=== PATIENT | male | born 1970 | race Caucasian/White ===

== ENCOUNTER → 2020-07-04 02:17 | Outpatient (CLI) | payer OTHER, SELFPAY ==
[2020-07-04 19:28] LABS: SARS-CoV-2 RNA PCR Negative
== END ==
PROVIDERS: PCP Nurse Practitioner Family; Visit Provider Internal Medicine Gastroenterology
DX: Z01.812 Encounter for preprocedural laboratory examination (principal); Z20.822 Contact with and (suspected) exposure to COVID-19
CPT/HCPCS: C9803; U0003; U0005

== ENCOUNTER 2020-07-07 01:56 | Day surgery (SDC) | payer OTHER, SELFPAY ==
[2020-06-20 09:41] VITALS: BMI 31.3
[2020-07-07 10:16] VITALS: BP 148/108; PULSE 65; RESP 18; TEMP 36.1; O2SAT 97
[2020-07-07] MEDS: LACTATED RINGERS 1,000 ML 150 ML IV CONT (10:17)
--- NOTE | 2020-07-07 11:35 | WPDANESEPPF ---
Anes - Initial Pre Proc Eval Procedure: Operation Date: 07/07/20 11:30 Proposed Procedures p Screening Colonoscopy - Glen Stoll DO Date/Time: 07/07/20 11:35 Surgeon: Glen Stoll DO Pre Op Diagnosis: Neoplasm Screening Patient Data Age: 50 Gender: M Height: 6 ft 6 in Weight: 121.4 kg Last Vital Signs Temp 96.9 F L 07/07/20 10:16 Pulse 65 07/07/20 10:16 Resp 18 07/07/20 10:16 BP 148/108 H 07/07/20 10:16 Pulse Ox 97 07/07/20 10:16 Allergies Allergy/AdvReac Type Severity Reaction Status Date / Time No Known Allergies Allergy Mild Verified 07/07/20 10:14 Home Medications Medication Instructions Recorded Confirmed Type bupropion HCl 150 mg PO DAILY 06/20/20 06/20/20 History famotidine [Pepcid] 20 mg PO DAILY 06/20/20 06/20/20 History lactobacillus combination no.8 3,000 mmu cells PO DAILY 06/20/20 06/20/20 History [Adult Probiotic] pczegutixvvr-let-ttxv-FA-vit K 1 tablet PO DAILY 06/20/20 06/20/20 History [Adults Multivitamin] Patient hx anesthesia problems: none Family hx anesthesia problems: none PMFSH Past Medical History Medical History (Updated 07/07/20 @ 11:35 by Moshe Sharp MD) Anxiety Depression Social History Social History Smoking packs per day: 1.5 Smoking cigarettes per day: 30.0 Years smoked: 20 Smoking pack-years: 30.00 Smoking status: Former smoker Tobacco type: cigarettes Alcohol intake: current Drinks per week: 8 Substance use type: does not use Living arrangements: with family Spiritual care concerns: No Anes - Eval Final PreProcedure Day of Procedure 07/07/20 11:35 Patient weight: overweight Heart: regular rate and rhythm Lungs: clear to auscultation Airway: Mallampati scale class II Neurological: alert and oriented Last oral intake: >/= 8 hours ASA classification: II Emergent: no Anesthetic plan: proceed Anesthesia type and monitoring: general GIVS and standard monitoring Informed Consent: The patient's anesthetic plan and its attendant risks and benefits were discussed with the patient/family/POA. Questions were solicited and answers provided to the satisfaction of the patient/family/POA.
--- NOTE | 2020-07-07 12:35 | WPDGICN ---
GI Consult Note Consult date/time: 07/07/20 12:35 HPI: This very pleasant gentleman is here for colonoscopy. This very pleasant gentleman seen in consultation at request of the primary physician. Impression: Screening colonoscopy. Recommendation: Colonoscopy. History: This very pleasant gentleman is here for screening colonoscopy. GI review systems is negative. Physical examination: General: very pleasant patient in no acute distress. HEENT: Head was normocephalic sclerae is clear mouth without masses neck was supple. Heart: Rate rhythm regular without S3 or S4. Lungs: CTA. Abdomen: Soft with no guarding or rigidity. Bowel sounds were active. Neurologic: Cranial nerves 2 through 12 intact. No focal defects. No clonus. Musculoskeletal system: Revealed no joint tenderness or swelling no muscle atrophy. Extremities: Reveal no significant edema. Skin: Warm and dry with normal turgor. Mental status: intact. Patient is alert and oriented. Review of Systems Review of Systems: All systems reviewed & are unremarkable except as noted in HPI and below PMFSH Past Medical History Medical History (Updated 07/07/20 @ 11:35 by Moshe Sharp MD) Anxiety Depression Social History Social History Smoking packs per day: 1.5 Smoking cigarettes per day: 30.0 Years smoked: 20 Smoking pack-years: 30.00 Smoking status: Former smoker Tobacco type: cigarettes Alcohol intake: current Drinks per week: 8 Substance use type: does not use Living arrangements: with family Spiritual care concerns: No Meds Home Medications and Allergies Home Medications Medication Instructions Recorded Confirmed Type bupropion HCl 150 mg PO DAILY 06/20/20 06/20/20 History famotidine [Pepcid] 20 mg PO DAILY 06/20/20 06/20/20 History lactobacillus combination no.8 3,000 mmu cells PO DAILY 06/20/20 06/20/20 History [Adult Probiotic] vecwuhqfubrv-kwd-jdsn-FA-vit K 1 tablet PO DAILY 06/20/20 06/20/20 History [Adults Multivitamin] Allergies Allergy/AdvReac Type Severity Reaction Status Date / Time No Known Allergies Allergy Mild Verified 07/07/20 10:14 Vital Signs Vital Signs - 24 hr 07/07/20 10:16 Temperature 36.1 C L Pulse Rate 65 Respiratory Rate 18 Blood Pressure 148/108 H Pulse Oximetry 97
[2020-07-07 13:00] VITALS: BP 113/73; PULSE 58; RESP 14; O2SAT 98
[2020-07-07 13:10] VITALS: BP 110/76; PULSE 55; RESP 14; O2SAT 98
[2020-07-07 13:20] VITALS: BP 127/90; PULSE 62; RESP 14; O2SAT 98
== END 2020-07-07 13:38 | disposition home or self-care (01) ==
PROVIDERS: PCP Nurse Practitioner Family; Visit Provider Internal Medicine Gastroenterology
PROC: 0DJD8ZZ Inspection of Lower Intestinal Tract, Via Natural or Artificial Opening Endoscopic (ICD-10-PCS; CPT 45378; principal; 2020-07-07 11:30)
DX: Z12.11 Encounter for screening for malignant neoplasm of colon (principal); F41.9 Anxiety disorder, unspecified; F32.9 Major depressive disorder, single episode, unspecified; Z87.891 Personal history of nicotine dependence; K57.30 Diverticulosis of large intestine without perforation or abscess without bleeding
CPT/HCPCS: 45378; C9803; J2704; J7120; U0003; U0005

== ENCOUNTER → 2020-10-02 12:25 | Outpatient (CLI) | payer OTHER, SELFPAY ==
--- NOTE | ~2020-10-02 | US_ITS ---
EXAMINATION:US venous doppler LE LT INDICATION:Left leg pain TECHNIQUE: Multiple grayscale, color flow and Doppler images of the left lower extremity deep venous systems were obtained and reviewed. COMPARISON:No prior studies for comparison. FINDINGS: The common femoral, superficial femoral and popliteal veins demonstrate normal respiratory variation, augmentation and compressibility. Color flow is also seen within the posterior tibial, pe roneal, greater saphenous and profunda veins. IMPRESSION: 1: No lower extremity deep venous thrombosis. Reviewed, dictated and finalized at location A.
== END ==
PROVIDERS: PCP Nurse Practitioner Family; Visit Provider Nurse Practitioner Family
DX: M62.838 Other muscle spasm (principal); M79.605 Pain in left leg; M25.562 Pain in left knee; Z78.9 Other specified health status
CPT/HCPCS: 93971

== ENCOUNTER 2024-06-19 14:56 | Outpatient (CLI) | payer OTHER, SELFPAY | END 2024-06-19 14:57 | disposition home or self-care (01) | LOC: ANHIMG 14:58 | PROVIDERS: PCP Nurse Practitioner Family; Visit Provider Plastic Surgery | DX: M18.11 Unilateral primary osteoarthritis of first carpometacarpal joint, right hand (principal); M18.12 Unilateral primary osteoarthritis of first carpometacarpal joint, left hand | CPT/HCPCS: 73130 ==

== ENCOUNTER 2024-09-02 18:49 | Emergency (ER) | payer OTHER, SELFPAY ==
--- NOTE | ~2024-09-02 | CT_ITS ---
History: Remote history of blunt trauma without loss of consciousness. PROCEDURE: CT head without contrast. COMPARISON: None TECHNIQUE: Axial imaging of the head performed from the skull base to the vertex without IV contrast. Sagittal a nd coronal reformations obtained. DLP: 681 mGy-cm FINDINGS: The ventricles are normal in size, shape and position. There is no mass, mass effect or midline shift. There is no abnormal extra-axial fluid collection. Punctate calcifications along the falx. 3 mm focus of hyperattenuation adjacent to the frontal horn of the right lateral ventricle, likely re presenting a calcification for which short-term follow-up is recommended (within 1 to 2 hours). Visua lized paranasal sinuses are clear. The mastoid air cells are well aerated. No acute displaced fractures within the overlying cranium. Impression: 3 mm focus of hyperattenuation adjacent to the frontal horn of the right lateral ventricle, likely re presenting a punctate calcification (with hemorrhage less likely) for which short-term follow-up is r ecommended (within 1 to 2 hours). Reviewed, dictated and finalized at location A. Impression: 3 mm focus of hyperattenuation adjacent to the frontal horn of the right latera l ventricle, likely representing a punctate calcification (with hemorrhage less likely) for which short-term follow-up is recommended (within 1 to 2 hours).
--- NOTE | ~2024-09-02 | CT_ITS ---
History: Abnormal imaging PROCEDURE: CT head without contrast. COMPARISON: 09/02/2024, approximately 1 hour earlier. TECHNIQUE: Axial imaging of the head performed from the skull base to the vertex without IV contrast. Sagittal a nd coronal reformations obtained. DLP: 681 mGy-cm FINDINGS: The ventricles are normal in size, shape and position. There is no mass, mass effect or midline shift. There is no abnormal extra-axial fluid collection or intracranial hemorrhage. The 3 mm focus of increased attenuation is no longer visualized on the current study, possibly artifa ctual in origin. Visualized paranasal sinuses are clear. The mastoid air cells are well aerated. No acute displaced fractures within the overlying cranium. Impression: No acute intracranial hemorrhage or suspicious mass effect. Reviewed, dictated and finalized at location A. Impression: No acute intracranial hemorrhage or suspicious mass effect.
--- OUTSIDE RECORDS SUMMARY | 2024-09-02 18:52 | XMS_ITS | Encounter Summary ---
Author Organization [facility] Address [facility] [place] [address] Care Team Providers Care Pellet Preparation Operator Name Role Phone Sherri Fisher JYOTSNA Primary Care Provider [phone] Encounter Details Date Type Department Care Team (Late st Contact Info) Description 08/09/2023 OpenCurriculum Message Enc [facility] Medical Group Orthopedic & Sports Medicine - [place] [address] [place] [address] Branden Salgado MD [address] [place] [address] Appointment for joint replacement Social History Tobacco Use Types Packs/Day Years Used Date Smoking Tobacco: Former Cigarettes 1.5 22 1 984 - 04/18/2005 Passive Smoke Exposure: Past Smokeless Tobacco: Never Comments:no longer smoker//v apes, Provider to [place] Alcohol Use Standard Drinks/Week Comments Yes 6.7 (1 standard drink = 0.6 oz p ure alcohol) 2 x week AUDIT-C Answer Date Recorded Frequency of Alcohol Consumption Not on file 06/02/2020 Q2: How many drinks containi ng alcohol do you have on a typical day when you are drinking? 1 or 2 06/02/2020 Frequency of Binge Drinking Not on file 05/19 PHQ-2 Answer Date Recorded Patient Health Questionnaire-2 Score 1 07/12/2023 Sex and Gender Information Value Date Recorded Sex Assigned at Male 06/06/2024 2:33 PM HYDRATION PLANT OPERATOR Legal Sex Male 4:17 PM CDT Gender Identity Male 06/01/2021 4:37 AM HYDRATION PLANT OPERATOR Sexual Orientation Straight 06/01/2021 4: 37 AM HYDRATION PLANT OPERATOR documented as of this encounter Progress Notes * Parvin Munoz RN - 08/09/2023 2:51 PM CDT Kerwin, I definitely have that date open. I will pencil you in for 10/13/23 and give you a call later this week to get your preop and pretesting appts scheduled. Parvin documented in this encounter Plan of Treatment Upcoming Encounters Date Type Department Care Team (Late st Contact Info) Description 09/21/2024 9:00 AM CDT Office Visit [facility] Medical Group Orthopedic & Sports Medicine - [place] [address] [place] [address] Raul Torres MD [address] [place] [address] documented as of this encounter Visit Diagnoses Not on filedocumented in this encounter Additional Health Concerns Assessment Noted Time PHQ-9 Depression Total Score: 5 07/12/19 24 12:13 PM CDT documented as of this encounter Care Teams Pellet Preparation Operator Relationship Specialty Start Date End Date Sherri Fisher FNP [address] [place] [id number] PCP - General Nurse Practitioner Family 12/20/18 documented as of this encounter
--- OUTSIDE RECORDS SUMMARY | 2024-09-02 18:52 | XMS_ITS | Encounter Summary ---
Author Organization [facility] Address [facility] [place] [address] Care Team Providers Care Transportation Dispatch Manager Name Role Phone Sherri Fisher JYOTSNA Primary Care Provider [phone] Encounter Details Date Type Department Care Team (Late st Contact Info) Description 08/27/2024 nubelo Message Enc [facility] Medical Group Orthopedic & Sports Medicine - [place] [address] [place], [place] [phone] Branden Salgado MD [address] [place] [address] Upcoming hand Surgery Social History Tobacco Use Types Packs/Day Years Used Date Smoking Tobacco: Former Cigarettes 1.5 22 1 984 - 04/18/2005 Passive Smoke Exposure: Past Smokeless Tobacco: Never Comments:no longer smoker//v apes, Provider to [place] Alcohol Use Standard Drinks/Week Comments Yes 6.7 [...] Answer Date Recorded Patient Health Questionnaire-2 Score 0 07/13/2024 Sex and Gender Information Value Date Recorded Sex Assigned at Male 06/06/2024 2:33 PM CREDIT ADMINISTRATION SPECIALIST Legal Sex Male 4:17 PM CDT Gender Identity Male 06/01/2021 4:37 AM CREDIT ADMINISTRATION SPECIALIST Sexual Orientation Straight 06/01/2021 4: 37 AM CREDIT ADMINISTRATION SPECIALIST documented as of this encounter Functional Status * Are you deaf or do you have serious difficulty hearing Answer Date of Assessment Author Status No 10/13/2023 1:31 PM CDT Lilliam Donnelly RN Active * Are you blind or do you have serious difficulty seeing, even when wearing glasses? Answer Date of Assessment Author Status No 10/13/2023 1:31 PM SUNGT Lilliam Donnelly RN Active * Do you have serious difficulty walking or climbing stairs? Answer Date of Assessment Author Status Yes 10/13/2023 1:31 PM SUNGT Lilliam Donnelly RN Active * Do you have difficulty dressing or bathing? Answer Date of Assessment Author Status No 10/13/2023 1:31 PM CDT Lilliam Donnelly RN Active * Because of a physical, mental, or emotional condition, do you have difficulty doing errands alone such as visiting a doctor's office or shopping? Answer Date of Assessment Author Status No 10/13/2023 1:31 PM CDT Lilliam Donnelly RN Active documented as of this encounter Mental Status * Because of a physical, mental, or emotional condition, do you have serious difficulty concentrating, remembering, or making decisions? Answer Entry Date Author Status No 10/13/2023 1:31 PM SUNGT Lilliam Donnelly RN Active documented in this encounter Plan of Treatment Upcoming Encounters Date Type Department Care Team (Late st Contact Info) Description 09/21/2024 9:00 AM CDT Office Visit [facility] Medical Group Orthopedic & Sports Medicine - [place] [address] [place] [address] Raul Torres MD [address] [place] [address] documented as of this encounter Goals Goal Patient Goal Type Associated Problems Recent Progress Patient-Stated? Author Family - family caregiver with be involved in care transitions and discharge planning Lifestyle No Wiley Spann RN documented as of this encounter Visit Diagnoses Not on filedocumented in this encounter Additional Health Concerns Assessment Noted Time PHQ-9 Depression Total Score: 5 07/12/19 24 12:13 PM CDT documented as of this encounter Care Teams Transportation Dispatch Manager Relationship Specialty Start Date End Date Sherri Fisher FNP [address] [place] [id number] PCP - General Nurse Practitioner Family 12/20/18 documented as of this encounter
--- OUTSIDE RECORDS SUMMARY | 2024-09-02 18:52 | XMS_ITS | Encounter Summary ---
Author Organization [facility] Address [facility] [place] [address] Care Team Providers Care Keeler Polygraph Operator Name Role Phone Sherri Fisher Primary Care Provider [phone] Encounter Details Date Type Department Care Team (Late st Contact Info) Description 06/09/2022 Giant Swarmt Message Enc [facility] Medical Group Family & Internal Medicine [facility] [address] [place] [address] Sherri Fisher FNP [address] [place], [place] [phone] Arthritis meds Social History Tobacco Use Types Packs/Day Years Used Date Smoking Tobacco: Former Cigarettes 1.5 22 1 984 - 04/18/2005 Smokeless Tobacco: Never Comments:no longer smoker Alcohol Use Standard Drinks/Week Comments Yes 6.7 [...] on file 05/19 PHQ-2 Answer Date Recorded PHQ-2 Score - If the patient scores above 3, please move on to questions 3-9 0 12/18/2021 Sex and Gender Information Value Date Recorded Sex Assigned at Male 06/06/2024 2:33 PM CLINICAL DERMATOLOGIST Legal Sex Male 4:17 PM CDT Gender Identity Male 06/01/2021 4:37 AM CLINICAL DERMATOLOGIST Sexual Orientation Straight 06/01/2021 4: 37 AM CLINICAL DERMATOLOGIST documented as of this encounter Plan of Treatment Upcoming Encounters Date Type Department Care Team (Late st Contact Info) Description 09/21/2024 9:00 AM CDT Office Visit [facility] Medical Group Orthopedic & Sports Medicine - [place] [address] [place] [address] Raul Torres MD [address] [place] [address] documented as of this encounter Visit Diagnoses Not on filedocumented in this encounter Additional Health Concerns Infection Onset Date Last Indicated Resolved Time COVID-19 Rule Out 04/20/2023 04/20/2023 04/20/2023 2:48 PM CLINICAL DERMATOLOGIST Influenza - Seasonal 04/20/2023 04/20/2023 024 12:32 AM CLINICAL DERMATOLOGIST Assessment Noted Time PHQ-9 Depression Total Score: 2 10/03/19 21 11:46 AM CDT documented as of this encounter Care Teams Keeler Polygraph Operator Relationship Specialty Start Date End Date Sherri Fisher FNP [address] [place] [address] PCP - General Nurse Practitioner Family 12/20/18 documented as of this encounter
--- OUTSIDE RECORDS SUMMARY | 2024-09-02 18:52 | XMS_ITS | Encounter Summary ---
Author Organization [facility] Address [address] [place] [address] Care Team Providers Care Counter Person Name Role Phone Unavailable Primary Care Provider Unavailabl e Encounter Details Date Type Department Care Team (Late st Contact Info) Description 10/14/2003 Outpatient Historical [facility] Medicine [address] [place] [address] [place] Social History Tobacco Use Types Packs/Day Years Used Date Smoking Tobacco: Never Assessed Sex and Gender Information Value Date Recorded Sex Assigned at Not on file Legal Sex Male 4:54 AM SENIOR FUND ACCOUNTANT Gender Identity Not on file Sexual Orientation Not on file documented as of this encounter Plan of Treatment Not on file documented as of this encounter Visit Diagnoses Not on filedocumented in this encounter
--- OUTSIDE RECORDS SUMMARY | 2024-09-02 18:52 | XMS_ITS | Encounter Summary ---
Author Organization [facility] Address [address] [place] [address] Care Team Providers Care Director Heart Name Role Phone Unavailable Primary Care Provider Unavailabl e Encounter Details Date Type Department Care Team (Late st Contact Info) Description 01/29/2004 Outpatient Historical [facility] Medicine [address] [place] [phone] Larry Patel, DO [address] [facility] [place] [phone] Social History Tobacco Use Types Packs/Day Years Used Date Smoking Tobacco: Never Assessed Sex and Gender Information Value Date Recorded Sex Assigned at Not on file Legal Sex Male 4:54 AM PROPERTY MAINTENANCE SUPERVISOR Gender Identity Not on file Sexual Orientation Not on file documented as of this encounter Plan of Treatment Not on file documented as of this encounter Visit Diagnoses Not on filedocumented in this encounter
--- OUTSIDE RECORDS SUMMARY | 2024-09-02 18:52 | XMS_ITS | Encounter Summary ---
Author Organization [facility] Address [facility] [place] [address] Care Team Providers Care Platform Software Engineer Name Role Phone Sherri Fisher JYOTSNA Primary Care Provider [phone] Encounter Details Date Type Department Care Team (Late st Contact Info) Description 07/09/2023 [employer] Message Enc [facility] Medical Group Orthopedic & Sports Medicine - [place] [address] [place] [address] Raul Torres MD [address] [place] [address] Left leg pain Social History Tobacco Use Types Packs/Day Years Used Date Smoking Tobacco: Former Cigarettes 1.5 22 1 984 - 04/18/2005 Passive Smoke Exposure: Past Smokeless Tobacco: Never Comments:no longer smoker Alcohol [...] Sex Assigned at Male 06/06/2024 2:33 PM SHAREMILKER Legal Sex Male 4:17 PM CDT Gender Identity Male 06/01/2021 4:37 AM SHAREMILKER Sexual Orientation Straight 06/01/2021 4: 37 AM SHAREMILKER documented as of this encounter Functional Status * Over the past 2 weeks, how often have you been bothered by any of the following problems? Question Answer Date of Assessment Author Status Little interest or pleasure in doing things Several days 07/12/2023 12:13 PM CDT Sherri Fisher, MILK SAMPLER Acti ve Feeling down, depressed, or hopeless Not at all 07/12/2023 12:13 PM CDT Sherri Fisher, F SHAFT HEADMAN Active Patient Health Questionnaire-2 Score 1 07/12/2023 12:13 PM CDT Sherri Fisher FN P Active * Question Answer Date of Assessment Author Status Trouble falling or staying asleep, or sleeping too much Several days 07/12/2023 12:13 PM CDT Sherri Fisher, MILK SAMPLER Active Feeling tired or having little energy Several days 07/12/2023 12:13 PM CDT Eliud Fisheranda, MILK SAMPLER Active Poor appetite or overeating Not at all 07/12/2023 12:13 PM CDT Sherri Fisher, MILK SAMPLER Active Feeling bad about yourself - or that you are a failure or have let yourself or your family down Several days 07/12/2023 12:13 PM CDT Eliud Fisheranda, MILK SAMPLER Active Trouble concentrating on things, such as reading the newspaper or watching television Several days 07/12/2023 12:13 PM CDT Eliud Fisheranda, MILK SAMPLER Active Moving or speaking so slowly that other people could have noticed? Or the opposite - being so fidgety or restless that you have been moving around a lot more than usual. Not at all 07/12/2023 12:13 PM CDT Sherri Fisher, MILK SAMPLER Active Thoughts that you would be better off or hurting yourself in some way Not at all 07/12/2023 12:13 PM CDT Sherri Fisher, MILK SAMPLER Active Patient Health Questionnaire-9 Score 5 07/12/2023 12:13 PM CDT Sherri Fisher, MILK SAMPLER Active * If you checked off any problems on this questionnaire so far, Question Answer Date of Assessment Author Status How difficult have these problems made it for you to do your work, take care of things at home, or get along with other people? Not difficult at all 07/12/2023 12:13 PM CDT Sherri Fisher FNP Active documented as of this encounter Plan of Treatment Upcoming Encounters Date Type Department Care Team (Late st Contact Info) Description 09/21/2024 9:00 AM CDT Office Visit [facility] Medical Group Orthopedic & Sports Medicine - [place] [address] [place] [address] Raul Torres MD [address] [place] [address] documented as of this encounter Visit Diagnoses Not on filedocumented in this encounter Additional Health Concerns Assessment Noted Time PHQ-9 Depression Total Score: 2 10/03/19 21 11:46 AM CDT documented as of this encounter Care Teams Platform Software Engineer Relationship Specialty Start Date End Date Sherri Fisher FNP [address] [place] [address] PCP - General Nurse Practitioner Family 12/20/18 documented as of this encounter
--- OUTSIDE RECORDS SUMMARY | 2024-09-02 18:53 | XMS_ITS | Clinical Summary ---
Author Organization [facility] Address [address] [facility] Attn: Epic Prelude ADT [place] [address] Care Team Providers Care Ornament Stapler Name Role Phone Unavailable Primary Care Provider Unavailabl e Social History Tobacco Use Types Packs/Day Years Used Date Smoking Tobacco: Never Assessed Sex and Gender Information Value Date Recorded Sex Assigned at Not on file Legal Sex Male 4:54 AM INCIDENT RESPONSE ENGINEER Gender Identity Not on file Sexual Orientation Not on file Plan of Treatment Health Maintenance Due Date Last Done Comments DTAP/TDAP/TD VACCINES (1 - Tdap) 1988 HEPATITIS B VACCINES (1 of 3 - 19+ 3-dose series) 12/1988 COLORECTAL SCREENING 2014 Colorectal Cancer Screening 2014 FIT-DNA Q 3 years 2014 FIT/FOBT Q 1 year 2014 Flex Sig/CT Colonography Q 5 years 2014 ZOSTER VACCINE (1 of 2) 2019 INFLUENZA VACCINE (#1) 2023
--- OUTSIDE RECORDS SUMMARY | 2024-09-02 18:53 | XMS_ITS | Encounter Summary ---
Author Organization [facility] Address [address] [place] [address] Care Team Providers Care Corporate Licensed Broker Name Role Phone Unavailable Primary Care Provider Unavailabl e Encounter Details Date Type Department Care Team (Late st Contact Info) Description 02/27/2004 Outpatient Historical [facility] Medicine [address] [place] [phone] Larry Patel, DO [address] [facility] [place] [phone] Social History Tobacco Use Types Packs/Day Years Used Date Smoking Tobacco: Never Assessed Sex and Gender Information Value Date Recorded Sex Assigned at Not on file Legal Sex Male 4:54 AM SCIENTIFIC PROCESS OPERATOR Gender Identity Not on file Sexual Orientation Not on file documented as of this encounter Plan of Treatment Not on file documented as of this encounter Visit Diagnoses Not on filedocumented in this encounter
--- OUTSIDE RECORDS SUMMARY | 2024-09-02 18:53 | XMS_ITS | Clinical Summary ---
Author Organization [facility] Address [address] [place] [address] Care Team Providers Care Bond Runner Name Role Phone Sherri Fisher JYOTSNA Primary Care Provider [phone] Allergies No known active allergies Medications lansoprazole 15 MG capsuleIndications :Heartburn Take 1 capsule (15 mg total) by mouth nightly. Indications: Heartburn Active psyllium 51.7 % packetIndications: Constipation Take 1 packet by mouth 3 (three) times daily as needed (constipation). Indications: Constipation Active magnesium oxide (MAG-OX) 250 MG tabletIndications: Magnesium Deficiency Take 1 tablet (250 mg total) by mouth daily. Indications: Magnesium Deficiency Active baclofen (LIORESAL) 10 MG tabletIndications: Muscle Spasm Take 2 tablets (20 mg total) by mouth 2 (two) times daily. Indications: Muscle Spasm 270 tablet 01/31/20 24 Active buPROPion SR (WELLBUTRIN SR) 150 MG 12 hr tabletIndications: Depression Indications: Depression TAKE 1 TABLET TWICE A DAY 180 tablet 3 06/01/19 25 Active triamcinolone acetonide (NASACORT) 55 MCG/ACT nasal inhaler 06/05/19 25 Active losartan (COZAAR) 50 MG tablet TAKE 1 TABLET DAILY 90 tablet 06/14/19 25 Active diclofenac potassium (CATAFLAM) 50 MG tabletIndications: Arthralgia of both hands,Primary osteoarthritis of both knees Take 1 tablet (50 mg total) by mouth 3 (three) times daily. Short supply while waiting on mailorder 270 tablet 3 07/14/19 25 Active Active Problems Problem Noted Date Diagnosed Date Low testosterone 07/13/2024 Hyperglycemia 12/08/2023 Primary hypertension 12/08/2023 Right ventricular enlargement 12/08/2023 Snoring 12/08/2023 Status post total left knee replacement 10/13/19 Hemorrhoids, unspecified hemorrhoid type 023 Muscle cramp 07/26/2022 Urinary urgency 07/26/2022 Localized osteoarthritis of left knee 04/02/2022 Localized osteoarthritis of right knee Pain in both knees, unspecified chronicity 04/02 Family history of leukemia 11/16/2021 Elevated fasting glucose 11/16/2021 Chronic pain of right knee 11/16/2021 Chronic thumb pain, bilateral 03/30/2021 Dupuytren's contracture of right hand 03/30/2021 Pain in other joint 03/30/2021 Arthralgia of both hands 03/09/2021 Other fatigue 03/09/2021 Left leg pain 10/02/2020 Posterior left knee pain 10/02/2020 Family history of colon cancer 05/19/2020 Vitamin D deficiency, unspecified 05/19/2020 Primary osteoarthritis involving multiple joints 05/19/2020 Class 1 obesity due to exces s calories without serious comorbidity with body mass index (BMI) of 32.0 to 32.9 in adult 01/10/2019 Moderate episode of recurrent major depressive d isorder 01/10/2019 Resolved Problems Problem Noted Date Diagnosed Date Resolved Date Cellulitis of right lower extremity 12/29/2023 07/13/2024 Influenza A 04/20/2023 12/06/2023 COVID-19 virus infection 03/09/2021 Insomnia due to medical condition 03/09/2021 11/16/2021 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 11/16/2021 Muscle spasm 10/02/2020 07/26/2022 Recent travel on aircraft 10/02/2020 Need for diphtheria-tetanus- pertussis (Tdap) vaccine 10/02/2020 10/06/2020 Heart palpitations 05/19/2020 Pounding heartbeat 05/19/2020 Numbness and tingling in left arm 01/10/2019 06/25/2022 Encounter to establish care 01/10/2019 12/28/2019 Encounters Date Type Department Care Team Description 08/27/2024 MyChart Message Enc [facility] Orthopedic & Sports Medicine [facility] [address] [place] [address] Branden Salgado MD Upcoming hand Surgery 07/23/2024 Telephone [facility] Family & Internal [address] [address] Sherri Fisher FNP Lab Results 07/13/2024 7:20 AM CDT Office Visit [facility] Family Internal [address] [phone] Sherri Fisher FNP Annual (Patient here today for Annual HM- ) 07/13/2024 - 07/13/2024 11:59 PM CDT Hospital Encounter [facility] [address] [place] [address] Sherri Fisher FNP Discharge Disposition: Home or Self Care (Routine Discharge) 07/13/2024 Travel 07/12/2024 Orders Only [facility] Family Internal [address] [phone] Lilliam Muniz MA 06/19/2024 Scan HEALTH INFO SRVCS Scanned, [facility] Image (SCAN) 06/08/2024 Telephone [facility] Orthopedic & Sports Medicine [facility] [address] [place] [address] Branden Salgado MD Medication Reconciliation 06/07/2024 10:15 AM CRISIS SPECIALIST Office Visit [facility], [address] [address] Nguyen Goncalves MD Follow Up (6 month) 06/07/2024 Travel 06/06/2024 Scan MG HEALTH INFO SRVCS Scanned, [facility] 06/05/2024 Scan MG HEALTH INFO SRVCS Scanned, [facility] from Last 3 Months Immunizations Immunization Administration Dates Next Due Fluzone 6 Months+ Quad (0.5 mL Prefilled Syringe ) 03/30/2021,05/15/2020 Influenza Adult (Generic) 03/26/2022 Shingrix 06/26/2022,03/26/2022 Tdap (Adacel) 10/02/2020 Family History Medical History Relation Comments Cancer Father leukemia Hypertension Father Cancer Maternal Grandfather colon Diabetes Maternal Grandmother Stroke Maternal Grandmother Thyroid Disease Mother Cancer Paternal Grandfather leukemia Cancer Paternal Grandmother Cancer Paternal Uncle leukemia Relation Status Comments Father (Age 83) Maternal Grandfather Maternal Grandmother Mother Alive Paternal Grandfather Paternal Grandmother Paternal Uncle Social History Tobacco Use Types Packs/Day Years Used Date Smoking Tobacco: Former Cigarettes 1.5 22 1 984 - 04/18/2005 Passive Smoke Exposure: Past Smokeless Tobacco: Never Tobacco Cessation:Counseling Given: Yes Comments:no longer smoker//vapes, Provider to [place] Alcohol Use Standard Drinks/Week Comments Yes 6.7 [...] Sex Assigned at Male 06/06/2024 2:33 PM CRISIS SPECIALIST Legal Sex Male 4:17 PM CDT Gender Identity Male 06/01/2021 4:37 AM CRISIS SPECIALIST Sexual Orientation Straight 06/01/2021 4: 37 AM CRISIS SPECIALIST Last Filed Vital Signs Vital Sign Reading Time Taken Comments Blood Pressure 122/88 07/13/2024 7:29 AM CDT Pulse 65 07/13/2024 7:29 AM CDT Temperature 36.5 C (97.7 F) 07/13/2024 7:29 AM CDT Respiratory Rate 16 07/13/2024 7:29 AM CDT Oxygen Saturation 98% 07/13/2024 7:29 AM CDT Inhaled Oxygen Concentration - - Weight 117.7 kg (259 lb 8 oz) 07/13/2024 7:29 AM CDT Height 198.1 cm (6' 6 ) 07/13/2024 7:29 AM CDT Body Mass Index 29.99 07/13/2024 7:29 AM CDT Plan of Treatment Upcoming Encounters Date Type Department Care Team (Late st Contact Info) Description 09/21/2024 9:00 AM CDT Office Visit [facility] Orthopedic & Sports Medicine - [place] [address] [place] [address] Raul Torres MD [address] [place] [address] Health Maintenance Due Date Last Done Comments Hepatitis B Vaccines (1 of 3 - 19+ 3-dose series) 1988 Pneumococcal Vaccine: 50+ Years (1 of 1 - PCV) 2019 Annual Physical 07/13/2025 07/13/2024, 07/26/2022, 03/30/2021 COVID-19 Vaccine (3 - 2023-2 5 season) 2025 07/06/2020, 06/15/2020 Postponed from 12/18/2023 (Patient Refused) Colorectal Cancer Screening Colonoscopy (10 Years) 07/07/2030 07/07/2020 DTaP, Tdap and Td Vaccines ( 2 - Td or Tdap) 10/02/2030 10/02/2020 Hepatitis C Completed 03/30/2021 Zoster Vaccines Completed 06/26/2022, 03/26/2022 PHQ-2 (Physician Weir) Completed 07/13/2024 Meningococcal B Vaccine Aged Out No l onger eligible based on patient's age to complete this topic Meningococcal Vaccine Aged Out No hayes shyam eligible based on patient's age to complete this topic RSV Immunizations Under 20 Months Aged Out No longer eligible b ased on patient's age to complete this topic Goals Goal Patient Goal Type Associated Problems Recent Progress Patient-Stated? Author Family - family caregiver with be involved in care transitions and discharge planning Lifestyle No Wiley Spann, RN Medical Devices Implanted Type Area Manufacturing Scheduler Device Identifier Shelf Expiration Date Model / Serial / Lot Attune Tibial Base Affixium Fixed Bearing Implanted:Qty : 1 on 10/13/2023 by Branden Salgado MD at [facility] Knee Components Left: Knee DEPUY SYNTHES [id number] 09/15/2032 1506-21- 010 / / [id number] Attune Femoral Porocoat Cruciate Retaining Implanted:Qty : 1 on 10/13/2023 by Branden Salgado MD at [facility] Knee Components Left: Knee DEPU[employer] SYNTHES [id number] 08/15/2032 1504-01- 109 / / [id number] Attune Tibial Insert Fixed Bearing Medial Stabilized Implanted:Qty : 1 on 10/13/2023 by Branden Salgado MD at [facility] Knee Components Left: Knee DEPUY SYNTHES [id number] 08/15/2030 1518-20- 910 / / [id number] Procedures Procedure Name Priority Date/Time Associated Diagnosis Comments CBC W/DIFF AUTOMATED Routine 07/13/2024 9:12 AM CDT Primary hypertension Overweight with body mass index (BMI) of 29 to 29.9 in adult LIPID PANEL Routine 07/13/2024 9:12 AM CDT Primary hypertension Overweight with body mass index (BMI) of 29 to 29.9 in adult TSH W/REFLEX Routine 07/13/2024 9:12 AM CDT Primary hypertension PROSTATE SPECIFIC ANTIGEN,SCREENING Routine 07/13/2024 9:12 AM CDT Encounter for prostate cancer screening VITAMIN D, 25 OH Routine 07/13/2024 9:12 AM CDT Vitamin D deficiency, unspecified URIC ACID BLOOD Routine 07/13/2024 9:12 AM CDT Primary hypertension Overweight with body mass index (BMI) of 29 to 29.9 in adult COMPREHENSIVE METABOLIC PANEL Routine 07/13/2024 9:12 AM CDT Primary hypertension Overweight with body mass index (BMI) of 29 to 29.9 in adult URINALYSIS, AUTO, COMPLETE Routine 07/13/2024 9:12 AM CDT Primary hypertension Overweight with body mass index (BMI) of 29 to 29.9 in adult VITAMIN B-12 Routine 07/13/2024 9:12 AM CDT Arthralgia of both hands Primary hypertension FOLIC ACID SERUM Routine 07/13/2024 9:12 AM CDT Arthralgia of both hands Primary hypertension MAGNESIUM Routine 07/13/2024 9:12 AM CDT Arthralgia of both hands Primary hypertension PROLACTIN Routine 07/13/2024 9:12 AM CDT Low testosterone HEMOGLOBIN, GLYCOSYLATED Routine 07/13/2024 9:12 AM CDT Hyperglycemia TESTOSTERONE, FREE & TOTAL Routine 07/13/2024 8:21 AM CDT Low testosterone COLLECTION VENOUS BLOOD VENIPUNCTURE Routine 07/13/2024 7:58 AM CDT Arthralgia of both hands Vitamin D deficiency, unspecified Primary hypertension Overweight with body mass index (BMI) of 29 to 29.9 in adult Encounter for prostate cancer screening Low testosterone IMAGE GENERIC 06/19/2024 IMAGE GENERIC 06/19/2024 HEPATITIS C ANTIBODY Routine 03/30/2021 12:03 PM CRISIS SPECIALIST Need for hepatitis C screening test COLONOSCOPY GENERIC (SCAN ORDER) 07/07/2020 from Last 3 Months or Most Recently Relevant to Health Maintenance Results * TSH W/REFLEX (07/13/2024 9:12 AM CDT) TSH 3.033 0.358 - 3.740 uIU/ML 07/13/2024 3:25 PM CDT [facility] 07/13/2024 9:12 AM CDT Sherri Fisher [facility] Final Result Performing Organization Address City/[facility]/ZIP Co de Phone Number [address]Y S[address] [place] [address] [place] [address], [place] [phone] * (ABNORMAL) HEMOGLOBIN, GLYCOSYLATED (07/13/2024 9:12 AM CDT) HGB A1C 5.7 4.5 - 6.2 % 07/13/2024 3:08 PM CDT [facility] ESTIMATED AVG GLUCOSE 117(H) 74 - 106 MG/DL 07/13/2024 3:08 PM CDT [facility] 07/13/2024 9:12 AM CDT Sherri Fisher [facility] Final Result Performing Organization Address [facility] de Phone Number JERRY SANCHE[address] [place] [address] [place] [address], [place] [phone] * (ABNORMAL) URINALYSIS (07/13/2024 9:12 AM CDT) COLOR (U) YELLOW 07/13/2024 3:47 PM CDT [facility] TRANSPARENCY CLEAR CLEAR 07/13/2024 3:47 PM CDT [facility] SPECIFIC GRAVITY (U) 1.020 1.003 - 1.040 07/13/2024 3:47 PM CDT [facility] U PH 6.0 5.0 - 9.0 07/13/2024 3:47 PM CDT [facility] PROTEIN RANDOM (U) NEGATIVE NEGATIVE 07/13/2024 3:47 PM CDT [facility] GLUCOSE (U) NEGATIVE NEGATIVE 07/13/2024 3:47 PM CDT [facility] KETONES MG/DL (U) NEGATIVE NEGATIVE 07/13/2024 3:47 PM CDT [facility] BILIRUBIN (U) NEGATIVE NEGATIVE 07/13/2024 3:47 PM CDT [facility] BLOOD (U) NEGATIVE NEGATIVE 07/13/2024 3:47 PM CDT [facility] UROBILINOGEN 0.2 0.0 - 2.0 EU/DL 07/13/2024 3:47 PM CDT [facility] NITRITES NEGATIVE NEGATIVE 07/13/2024 3:47 PM CDT [facility] LEUKOCYTES (U) NEGATIVE NEGATIVE 07/13/2024 3:47 PM CDT [facility] RBC/HPF 0-3 0 - 3 /HPF 07/13/2024 3:47 PM CDT [facility] WBC/HPF 0-3 0 - 3 /HPF 07/13/2024 3:47 PM CDT [facility] EPI/HPF 0-3 /HPF 07/13/2024 3:47 PM CDT [facility] BACTERIA (U) TRACE(A) NONE SEEN 07/13/2024 3:47 PM CDT [facility] HYALINE CASTS 0-2 /LPF 07/13/2024 3:47 PM CDT [facility] MUCUS MODERATE 07/13/2024 3:47 PM CDT [facility] URINE SPECIMEN OBTAINED BY CLEAN CATCH PROCEDURE / Unknown 07/13/2024 9:12 AM CDT us Sherri Fisher QUALITY ASSURANCE AUDITOR URINE ORDERABLES Final Result [facility] [address] [place] [address], [place] [phone] * VITAMIN B-12 (07/13/2024 9:12 AM CDT) VITAMIN B12 S/P/B 541 193 - 986 PG/ML 07/13/2024 3:25 PM CDT [facility] 07/13/2024 9:12 AM CDT Sherri Fisher [facility] Final Result Performing Organization Address [facility] Co de Phone Number [facility] [address] [place] [address], [place] [phone] * PROSTATE SPECIFIC ANTIGEN,SCREENING (07/13/2024 9:12 AM CDT) PSA 1.24 <4.00 NG/ML 07/13/2024 3:10 PM CDT [facility] Comment: ASSAY PERFORMED BY ENZYME IMMUNOASSAY METHODOLOGY USING [employer] REAGENT. PATIENT RESULTS DETERMINED BY ASSAYS FROM DIFFERENT MANUFACTURERS AND/OR BY DIFFERENT METHODS MAY NOT BE COMPARABLE. 07/13/2024 9:12 AM CDT [facility] Final Result Performing Organization Address [facility] Co de Phone Number [place] [id number] [place] [address], [place] [phone] * (ABNORMAL) COMPREHENSIVE METABOLIC PANEL (07/13/2024 9:12 AM CDT) SODIUM S/P/B 139 136 - 145 MMOL/L 07/13/2024 3:25 PM CDT [facility] POTASSIUM S/P/B 4.7 3.5 - 5.1 MMOL/L 07/13/2024 3:25 PM CDT [facility] CHLORIDE S/P/B 105 98 - 107 MMOL/L 07/13/2024 3:25 PM CDT [facility] CO2 30.3 21 - 32 MMOL/L 07/13/2024 3:25 PM CDT [facility] GLUCOSE 107(H) 70 - 99 MG/DL 07/13/2024 3:25 PM CDT [facility] BUN 14 7 - 18 MG/DL 07/13/2024 3:25 PM T [facility] CREATININE S/P/B 1.01 0.70 - 1.30 MG/DL 07/13/2024 3:25 PM T [facility] CALCIUM S/P/B 9.0 8.4 - 10.5 MG/DL 07/13/2024 3:25 PM CDT [facility] BIL[facility] TOTAL S/P/B 0.7 0.2 - 1.0 MG/DL 07/13/2024 3:25 PM T [facility] ALKALINE PHOSPHATASE S/P/B 56 45 - 115 U/L 07/13/2024 3:25 PM T [facility] AST 13(L) 15 - 37 U/L 07/13/2024 3:25 PM T [facility] ALT 31 16 - 63 U/L 07/13/2024 3:25 PM T [facility] TOTAL PROTEIN S/P/B 6.9 6.4 - 8.2 G/DL 07/13/2024 3:25 PM T [facility] ALBUMIN S/P/B 4.2 3.4 - 5.0 G/DL 07/13/2024 3:25 PM T [facility] ANION GAP 3.7(L) 5 - 15 MMOL/L 07/13/2024 3:25 PM T [facility] Comment:REFERENCE RANGE NOT ESTABLISHED OSMOLALITY (CALC) 289 MOSM/KG 025 3:25 PM T [facility] Comment:REFERENCE RANGE NOT ESTABLISHED GFR ESTIMATE 88(L) >90 ML/MIN/1. 73 M2 07/13/2024 3:25 PM T [facility] GFR NOTES GFR REFERENCE S: 07/13/2024 3:25 PM T [facility] Comment: THE ESTIMATED GFR IS CALCULATED USING THE 2020 CKD-EPI EQUATION. THE FOLLOWING CATEGORIES FOR GRADING RENAL FUNCTION ARE RECOMMENDED BY THE INTERNATIONAL SOCIETY OF NEPHROLOGY (KDIGO 2012 CLINICAL PRACTICE GUIDELINE). G1,NORMAL OR HIGH: >89 ml/min/1.73 m2 G2,MILDLY DECREASED: 60-89 ml/min/1.73 m2 G3A,MILDLY TO MODERATELY DECREASED: 45-59 ml/min/1.73 m2 G3B,MODERATELY TO SEVERELY DECREASED: 30-44 ml/min/1.73 m2 G4,SEVERELY DECREASED: 15-29 ml/min/1.73 m2 G5,KIDNEY FAILURE: <15 ml/min/1.73 m2 07/13/2024 9:12 AM CDT Sherri Natalia [facility] Final Result [facility] [address] [place] [address], * LIPID PANEL (07/13/2024 9:12 AM CDT) CHOLESTEROL 178 <200 MG/DL 07/13/2024 3:25 PM CDT [facility] TRIGLYCERIDES 136 <150 MG/DL 07/13/2024 3:25 PM CDT [facility] HDL 62 >40 MG/DL 07/13/2024 3:25 PM CDT [facility] LDL-C 89 <100 MG/DL 07/13/2024 3:25 PM CDT [facility] VLDL CALCULATION 27 5 - 28 MG/DL 07/13/2024 3:25 PM CDT [facility] CHOL/HDL RATIO 2.9 0.0 - 4.0 07/13/2024 3:25 PM CDT [facility] LDL/HDL 1.4 0.41 - 2.13 07/13/2024 3:25 PM CDT [facility] NON HDL CHOLESTEROL 116 <140 MG/DL 07/13/2024 3:25 PM CDT [facility] 07/13/2024 9:12 AM CDT Sherri Fisher [facility] Final Result Performing Organization Address City/[facility]/ZIP Co de Phone Number [facility] [address] [place] [address], * FOLIC ACID SERUM (07/13/2024 9:12 AM CDT) FOLATE 16.7 8.6 - 58.9 NG/ML 07/13/2024 4:01 PM CDT [facility] 07/13/2024 9:12 AM CDT Sherri Almodovargertrude [facility] Final Result Performing Organization Address City/[facility] Co de Phone Number [facility] [address] [place] [address], [place] [phone] * CBC W/DIFF AUTOMATED (07/13/2024 9:12 AM CDT) WBC 5.31 4.00 - 10.80 x10'3/uL 07/13/2024 3:00 PM CDT [facility] RBC 5.13 4.50 - 6.10 x10'6/uL 07/13/2024 3:00 PM CDT [facility] HGB 15.9 13.0 - 18.0 G/DL 07/13/2024 3:00 PM CDT [facility] HCT 47.8 37.0 - 52.0 % 07/13/2024 3:00 PM CDT [facility] MCV 93.2 78.0 - 100.0 FL 07/13/2024 3:00 PM CDT [facility] MCH 31.0 27.0 - 31.0 PG 07/13/2024 3:00 PM CDT -[facility] MCHC 33.3 33.0 - 36.0 G/DL 07/13/2024 3:00 PM CDT -[facility] RDW 12.9 11.5 - 14.5 % 07/13/2024 3:00 PM CDT [facility] PLT 290 150 - 350 x10'3/uL 07/13/2024 3:00 PM CDT [facility] MPV 9.0 7.4 - 10.4 FL 07/13/2024 3:00 PM CDT -[facility] DIFFERENTIAL TYPE AUTOMATED DIFFERENTIAL 07/13/2024 3:00 PM CDT -[facility] NEUTROPHILS % 51.1 % 07/13/2024 3:00 PM CDT -[facility] LYMPHOCYTES % 37.9 % 07/13/2024 3:00 PM CDT [facility] MONOCYTES % 8.1 % 07/13/2024 3:00 PM CDT [facility] EOSINOPHILS % 2.1 % 07/13/2024 3:00 PM CDT -[facility] BASOPHILS % 0.6 % 07/13/2024 3:00 PM CDT [facility] IMMATURE GRANS % 0.2 % 07/13/2024 3:00 PM CDT [facility] ABS. NEUTROPHILS 2.72 1.60 - 8.30 x10'3/uL 07/13/2024 3:00 PM CDT [facility] ABS. LYMPHOCYTES 2.01 0.80 - 4.70 x10'3/uL 07/13/2024 3:00 PM CDT [facility] ABS. MONOCYTES 0.43 0.00 - 1.50 x10'3/uL 07/13/2024 3:00 PM CDT [facility] ABS. EOSINOPHILS 0.11 0.00 - 0.40 x10'3/uL 07/13/2024 3:00 PM CDT [facility] ABS. BASOPHILS 0.03 0.00 - 0.20 x10'3/uL 07/13/2024 3:00 PM CDT [facility] ABS. IMMATURE GRANULOCYTES 0.01 0.00 - 0.03 x10'3/uL 07/13/2024 3:00 PM CDT [facility] 07/13/2024 9:12 AM CDT Sherri Fisher [facility] Final Result Performing Organization Address City/[facility]/ZIP Co de Phone Number [address] [address], [place] [phone] * VITAMIN D, 25 OH (07/13/2024 9:12 AM CDT) VITAMIN D 25 HYDROXY TOTAL S/P/B 31.1 30 - 100 NG/ML 07/13/2024 3:25 PM CDT [facility] Comment: DEFICIENT <20 INSUFFICIENT 20-30 SUFFICIENT 30-100 07/13/2024 9:12 AM CDT Sherri Fisher [facility] Final Result [address] [address], [place] [phone] * (ABNORMAL) MAGNESIUM (07/13/2024 9:12 AM CDT) MAGNESIUM 2.5(H) 1.8 - 2.4 MG/DL 07/13/2024 3:25 PM CDT [facility] 07/13/2024 9:12 AM CDT us Sherri Fisher [facility] Final Result [facility] [place] [address] [place] [address], * PROLACTIN (07/13/2024 9:12 AM CDT) PROLACTIN 6.3 2.5 - 17.4 NG/ML 07/13/2024 5:28 PM CDT [facility] Comment: ASSAY PERFORMED BY CHEMILUMINESCENCE METHODOLOGY USING [employer]. PATIENT RESULTS DETERMINED BY ASSAYS USING DIFFERENT MANUFACTURERS FOR METHODS MAY NOT BE COMPARABLE. 07/13/2024 9:12 AM CDT us [place] [id number]|2024-09-02 21:10:00|2024-09-02 21:10:00|XMS_ITS|BLAZEG DAMECCAON|External Medical Summaries|[id number]|" Encounter Summary Created on: September 02, 2024 Moshe Haq : 1970 Sex: Male Author Organization [facility] Address [address] [place] [address] Care Team Providers Care Bond Runner Name Role Phone Unavailable Primary Care Provider Unavailabl e Encounter Details Date Type Department Care Team (Late st Contact Info) Description 10/14/2003 Outpatient Historical [facility] Family Medicine [address] [place] [address] [place] Social History Tobacco Use Types Packs/Day Years Used Date Smoking Tobacco: Never Assessed Sex and Gender Information Value Date Recorded Sex Assigned at Not on file Legal Sex Male 4:54 AM CRISIS SPECIALIST Gender Identity Not on file Sexual Orientation Not on file documented as of this encounter Plan of Treatment Not on file documented as of this encounter Visit Diagnoses Not on filedocumented in this encounter "
--- OUTSIDE RECORDS SUMMARY | 2024-09-02 18:53 | XMS_ITS | Encounter Summary ---
Author Organization [facility] Address [address] [place] [address] Care Team Providers Care Accountant Auditor Name Role Phone Unavailable Primary Care Provider Unavailabl e Encounter Details Date Type Department Care Team (Late st Contact Info) Description 11/30/2004 Outpatient Historical [facility] Medicine [address] [place] [phone] Larry Patel, DO [address] [facility] [place] [facility] [place] [phone] Social History Tobacco Use Types Packs/Day Years Used Date Smoking Tobacco: Never Assessed Sex and Gender Information Value Date Recorded Sex Assigned at Not on file Legal Sex Male 4:54 AM BRANCH SALES MANAGER Gender Identity Not on file Sexual Orientation Not on file documented as of this encounter Plan of Treatment Not on file documented as of this encounter Visit Diagnoses Not on filedocumented in this encounter
--- OUTSIDE RECORDS SUMMARY | 2024-09-02 18:53 | XMS_ITS | Encounter Summary ---
Author Organization [facility] Address [address] [place] [address] Care Team Providers Care Sock Ironer Name Role Phone Unavailable Primary Care Provider Unavailabl e Encounter Details Date Type Department Care Team (Late st Contact Info) Description 04/02/2005 Outpatient Historical [facility] Medicine [address] [place] [id number] Larry Patel, DO [address] [facility] [place] [phone] Social History Tobacco Use Types Packs/Day Years Used Date Smoking Tobacco: Never Assessed Sex and Gender Information Value Date Recorded Sex Assigned at Not on file Legal Sex Male 4:54 AM LOSS PREVENTION MANAGER Gender Identity Not on file Sexual Orientation Not on file documented as of this encounter Plan of Treatment Not on file documented as of this encounter Visit Diagnoses Not on filedocumented in this encounter
--- OUTSIDE RECORDS SUMMARY | 2024-09-02 18:53 | XMS_ITS | Encounter Summary ---
Author Organization [facility] Address Formerly [facility] [place] [address] Care Team Providers Care Production Supervisor Name Role Phone Sherri Fisher JYOTSNA Primary Care Provider [phone] Encounter Details Date Type Department Care Team (Late st Contact Info) Description 09/19/2023 [email or web address] Message Enc [facility] Medical Group Orthopedic & Sports Medicine - [place] [address] [place] [address] Raul Torres MD [address] [place] [address] Appointment on Social History Tobacco Use Types Packs/Day Years Used Date Smoking Tobacco: Former Cigarettes 1.5 22 1 984 - 04/18/2005 Passive Smoke Exposure: Past Smokeless Tobacco: Never Comments:no longer smoker//v apdon, Provider to [facility] Alcohol Use Standard Drinks/Week Comments Yes 6.7 [...] Sex Assigned at Male 06/06/2024 2:33 PM MAMMAL KEEPER Legal Sex Male 4:17 PM CDT Gender Identity Male 06/01/2021 4:37 AM MAMMAL KEEPER Sexual Orientation Straight 06/01/2021 4: 37 AM MAMMAL KEEPER documented as of this encounter Plan of Treatment Upcoming Encounters Date Type Department Care Team (Late st Contact Info) Description 09/21/2024 9:00 AM CDT Office Visit [facility] Medical Group [facility] - [place] [address] [place] [address] Raul Torres MD [address] [place] [address] documented as of this encounter Visit Diagnoses Not on filedocumented in this encounter Additional Health Concerns Assessment Noted Time PHQ-9 Depression Total Score: 5 07/12/19 24 12:13 PM CDT documented as of this encounter Care Teams Production Supervisor Relationship Specialty Start Date End Date Sherri Fisher FNP [address] [place] [address] PCP - General Nurse Practitioner Family 12/20/18 documented as of this encounter
--- OUTSIDE RECORDS SUMMARY | 2024-09-02 18:53 | XMS_ITS | Encounter Summary ---
Author Organization [facility] Address [facility] [place] [address] Care Team Providers Care Rv Technician Name Role Phone Sherri Fisher JYOTSNA Primary Care Provider [phone] Encounter Details Date Type Department Care Team (Late st Contact Info) Description 11/21/2023 Loan[employer] Message Enc [facility] Medical Group Orthopedic & Sports Medicine - [place] [address] [place], [place] [phone] Branden Salgado MD [address] [place] [address] November 22 appt Social History Tobacco Use Types Packs/Day Years Used Date Smoking Tobacco: Former Cigarettes 1.5 22 1 984 - 04/18/2005 Passive Smoke Exposure: Past Smokeless Tobacco: Never Comments:no longer smoker//v apes, Provider to [facility] Alcohol Use Standard Drinks/Week Comments Yes 6.7 [...] Sex Assigned at Male 06/06/2024 2:33 PM LABORER TIN CAN Legal Sex Male 4:17 PM CDT Gender Identity Male 06/01/2021 4:37 AM LABORER TIN CAN Sexual Orientation Straight 06/01/2021 4: 37 AM LABORER TIN CAN documented as of this encounter Functional Status [...] Description 09/21/2024 9:00 AM CDT Office Visit [facility] Medical [facility] - [place] [address] [place] [address] Raul Torres MD [address] [place] [address] documented as of this encounter Goals Goal [...] documented as of this encounter Care Teams Rv Technician Relationship Specialty Start Date End Date Sherri Fisher FNP [address] [place] [address] PCP - General Nurse Practitioner Family 12/20/18 documented as of this encounter
--- OUTSIDE RECORDS SUMMARY | 2024-09-02 18:53 | XMS_ITS | Encounter Summary ---
Author Organization [facility] Address [facility] [place] [address] Care Team Providers Care Senior Media Director Name Role Phone Sherri Fisher JYOTSNA Primary Care Provider [phone] Encounter Details Date Type Department Care Team (Late st Contact Info) Description 09/01/2023 Netadmin Message Enc [facility], [address] [address] Mychart, [facility] Provider APPT Social History Tobacco Use Types Packs/Day Years Used Date Smoking Tobacco: Former Cigarettes 1.5 22 1 984 - 04/18/2005 Passive Smoke Exposure: Past Smokeless Tobacco: Never Comments:no longer smoker//v apes, Provider to [facility] Alcohol Use Standard Drinks/Week Comments Yes 6.7 [...] Sex Assigned at Male 06/06/2024 2:33 PM LAWYER Legal Sex Male 4:17 PM CDT Gender Identity Male 06/01/2021 4:37 AM LAWYER Sexual Orientation Straight 06/01/2021 4: 37 AM LAWYER documented as of this encounter Plan of Treatment Upcoming Encounters Date Type Department Care Team (Late st Contact Info) Description 09/21/2024 9:00 AM CDT Office Visit [facility] Medical Group Orthopedic & Sports Medicine - [place] [address] [place] [address] Raul Torres MD [address] [place] [address] documented as of this encounter Visit Diagnoses Not on filedocumented in this encounter Additional Health Concerns Assessment Noted Time PHQ-9 Depression Total Score: 5 07/12/19 24 12:13 PM CDT documented as of this encounter Care Teams Senior Media Director Relationship Specialty Start Date End Date Sherri Fisher FNP [address] [place] [address] PCP - General Nurse Practitioner Family 12/20/18 documented as of this encounter
--- OUTSIDE RECORDS SUMMARY | 2024-09-02 18:53 | XMS_ITS | Continuity of Care Document ---
Author Organization [employer] [place] Address [address] [facility] [address] [place] [phone] Phone Care Team Providers Care Precision Jig Grinder Name Role Phone Cam Cote Unavailable Unavailable Procedures Procedure Date Progress Note Therapeutic Activities Neuromuscular Re-Ed Therapeutic Exercise Therapeutic Activities Neuromuscular Re-Ed Therapeutic Exercise Therapeutic Activities Neuromuscular Re-Ed Therapeutic Exercise Therapeutic Activities Neuromuscular Re-Ed Therapeutic Exercise Hot or Cold Pack Therapeutic Activities Neuromuscular Re-Ed Therapeutic Exercise Hot or Cold Pack Therapeutic Activities Neuromuscular Re-Ed Therapeutic Exercise Manual Therapy Hot or Cold Pack Therapeutic Activities Neuromuscular Re-Ed Therapeutic Exercise Hot or Cold Pack Therapeutic Activities Neuromuscular Re-Ed Therapeutic Exercise Manual Therapy Therapeutic Activities Neuromuscular Re-Ed Therapeutic Exercise Hot or Cold Pack Therapeutic Activities Neuromuscular Re-Ed Therapeutic Exercise Hot or Cold Pack Therapeutic Activities Neuromuscular Re-Ed Manual Therapy Therapeutic Exercise Hot or Cold Pack Therapeutic Activities Neuromuscular Re-Ed Therapeutic Exercise Manual Therapy Hot or Cold Pack Therapeutic Activities Neuromuscular Re-Ed Therapeutic Exercise Manual Therapy Hot or Cold Pack Therapeutic Activities Neuromuscular Re-Ed Manual Therapy Therapeutic Exercise Hot or Cold Pack Therapeutic Activities Neuromuscular Re-Ed Therapeutic Exercise Manual Therapy Hot or Cold Pack Therapeutic Activities Neuromuscular Re-Ed Therapeutic Exercise Manual Therapy Therapeutic Activities Neuromuscular Re-Ed Therapeutic Exercise Hot or Cold Pack Therapeutic Activities Neuromuscular Re-Ed Manual Therapy Hot or Cold Pack Therapeutic Activities Neuromuscular Re-Ed Therapeutic Exercise Manual Therapy Hot or Cold Pack Therapeutic Activities Neuromuscular Re-Ed Therapeutic Exercise Manual Therapy Hot or Cold Pack Therapeutic Activities Neuromuscular Re-Ed Therapeutic Exercise Manual Therapy Therapeutic Activities Neuromuscular Re-Ed Therapeutic Exercise Manual Therapy Hot or Cold Pack Progress Note Therapeutic Activities Neuromuscular Re-Ed Therapeutic Exercise Manual Therapy Hot or Cold Pack Therapeutic Activities Neuromuscular Re-Ed Therapeutic Exercise Manual Therapy Hot or Cold Pack Therapeutic Activities Neuromuscular Re-Ed Therapeutic Exercise Manual Therapy Hot or Cold Pack Therapeutic Activities Neuromuscular Re-Ed Therapeutic Exercise Manual Therapy Therapeutic Activities Neuromuscular Re-Ed Therapeutic Exercise Manual Therapy Hot or Cold Pack Therapeutic Activities Neuromuscular Re-Ed Therapeutic Exercise Manual Therapy Hot or Cold Pack PT Evaluation Moderate Complexity Therapeutic Activities Neuromuscular Re-Ed Therapeutic Exercise Hot or Cold Pack Therapeutic Activities Neuromuscular Re-Ed Therapeutic Exercise Therapeutic Activities Neuromuscular Re-Ed Therapeutic Exercise Manual Therapy Therapeutic Activities Therapeutic Exercise Neuromuscular Re-Ed Therapeutic Activities Neuromuscular Re-Ed Therapeutic Exercise Hot or Cold Pack Therapeutic Activities Therapeutic Exercise Neuromuscular Re-Ed Therapeutic Activities Neuromuscular Re-Ed Therapeutic Exercise Hot or Cold Pack Manual Therapy Therapeutic Activities Therapeutic Exercise Neuromuscular Re-Ed Manual Therapy Therapeutic Activities Neuromuscular Re-Ed Therapeutic Exercise Manual Therapy Therapeutic Activities Therapeutic Exercise Neuromuscular Re-Ed Manual Therapy Hot or Cold Pack Therapeutic Activities Neuromuscular Re-Ed Therapeutic Exercise PT Evaluation Moderate Complexity Therapeutic Activities Therapeutic Exercise Neuromuscular Re-Ed Manual Therapy Advance Directives Directive Yes / No Effective Date File Name No Information Encounters Encounter Description Practice Location Reason(s) For Visit Diagnoses Date Provider Providers Copied on Encounter [facility] [address], [id number], tel:[phone] [place] No Information 5 Mio Levy. [address] [facility], [facility] [address], [place], [facility], . tel: [phone] [address], [id number], tel:[phone] [place] No Information 4 Mujamesl Cam. [address] [facility], [facility] [address], [place], [facility], [place]. tel: [phone] Referring Provider: Quentin Cobian, [address], [address]. tel:[phone], [id number], tel:[phone] [place] No Information 4 Muehl Cam. [address] [facility], [facility] [address], [place], [facility], [place]. tel: [phone] Referring Provider: Aureliano Christians[address], [place], [address]. tel:[phone], [place], [place], [id number], tel:[phone] [place] No Information 4 Muehl Cam. [address] [facility], [address], [place], [place], [facility], . tel: [phone] Referring Provider: Aureliano Christianson [address], [place], [address]. tel:[phone], [place], [place], [id number], tel:[phone] [place] No Information 4 Muehl Cam. [address] [facility], [address], [place], [place], [facility], . tel: [phone] Referring Provider: Aureliano Christianson [address], [place], [address]. tel:[phone], [place], [place], [id number], [place] tel:[phone] [place] No Information 4 Higuera January. . Referring Provider: Aureliano Christianson [address], [place], [address]. tel:[phone] [place] [address], [place], [place], [id number], [place] tel:[phone] [place] No Information 4 Muehl Cam. [address] [facility], [address], [place], [place], [facility], . tel: [phone] Referring Provider: Aureliano Christians[address], [place], [address]. tel:[phone] [place] [address], [place], [place], [id number], tel:[phone] [place] No Information Oct-0 9-202 4 Muehl Cam. [address] [place] [address], [address], [place], [place], [facility], . tel: [phone] Referring Provider: [facility] [address], [place], [address]. tel:[phone] [address], [place], [place], [id number], [place] tel:[phone] [place] No Information Oct-0 7-202 4 Akiko Fred. . Referring Provider: Aureliano Christianson [facility] [address], [place], [address]. tel:[phone], [place], [place], [id number], tel:[phone] [place] No Information Oct-0 2-202 4 Muehl Cam. [address] [place] [address], [address], [place], [facility], [place]. tel: [phone] Referring Provider: Aureliano Christianson [facility] [address], [place], [address]. tel:[phone] [address], [place], [place], [address], tel:[phone] [place] No Information Sep-3 0-202 4 Muehl Cam. [address] [place] [address], [address], [place], [facility], . tel: [phone] Referring Provider: [facility] [address], [place], [address]. tel:[phone] [address], [place], [place], [id number], tel:[phone] [place] No Information Sep-2 0-202 4 Muehl Cam. [address] [place] [address], [address], [place], [facility], [place]. tel: [phone] Referring Provider: Aureliano [address], [place], [address]. tel:[phone] [address], [place], [place], [id number], tel:[phone] [place] No Information Sep-1 8 4 Muehl Cam. [address] [place] [address], [address], [place], [facility], . tel: [phone] Referring Provider: Aureliano Christians[address], [place], [address]. tel:[phone] [address], [place], [place], [id number], tel:[phone] [place] No Information Sep-1 1 4 Muehl Cam. [address] [place] [address], [address], [place], [facility], . tel: [phone] Referring Provider: Aureliano Christians[address], [place], [address]. tel:[phone] [address], [place], [place], [id number], tel:[phone] [place] No Information Sep-0 9 4 Muehl Cam. [address] [place] [address], [address], [place], [facility], . tel: [phone] Referring Provider: Aureliano Christians[address], [place], [address]. tel:[phone] [address], [place], [id number], tel:[phone] [place] No Information Sep-0 6202 4 Muehl Cma. [address] [place] [address], [address], [place], [place], [facility], . tel: [phone] Referring Provider: Aureliano Christians[address], [place], [address]. tel:[phone] [facility] [address], [place], [place], [address], [place] tel:[phone] [place] No Information Dec-0 4 Delvis Patel. . Referring Provider: Aureliano Christians[address], [place], [address]. tel:[phone] [facility] [address], [place], [place], [id number], [place] tel:[phone] [place] No Information 4 Janessa Kyle. . Referring Provider: Aureliano [address], [place], [address]. tel:[phone] [facility] [address], [place], [place], [address], [place] tel:[phone] [place] No Information 4 Janessa Kyle. . Referring Provider: Aureliano [address], [place], [address]. tel:[phone] [facility] [address], [place], [place], [address], [place] tel:[phone] [place] No Information 4 Muehl Cam. [address] [facility], [address], [place], [facility], . tel: [phone] Referring Provider: Aureliano Christians[address], [place], [address]. tel:[phone] [place] [address], [place], [place], [address], [place] tel:[phone] [place] No Information 4 Muehl Cam. [address] [facility], [address], [place], [facility], . tel: [phone] Referring Provider: Aureliano Christians[address], [place], [address]. tel:[phone] [address], [place], [place], [address], tel:[phone] [place] No Information 4 Muehl Cam. [address] [place] [address], [address], [place], [facility], . tel: [phone] Referring Provider: Aureliano [address], [place], [address]. tel:[phone] [address], [place], [place], [address], [place] tel:[phone] [place] No Information 4 Muehl Cam. [address] [place] [address], [address], [place], [facility], . tel: [phone] Referring Provider: Aureliano [address], [place], [address]. tel:[phone], [place], [place], [address], [place] tel:[phone] [place] No Information 4 Muehl Cam. [address] [place] [address], [address], [place], [facility], . tel: [phone] Referring Provider: Aureliano [address], [place], [address]. tel:[phone] [address], [place], [address], [place] tel:[phone] [place] No Information 4 Muehl Cam. [address] [place] [address], [address], [place], [facility], . tel: [phone] Referring Provider: Aureliano [address], [place], [address]. tel:[phone] [facility], [address] [place], [place] [address], [place], [place], [id number], [place] tel:[phone] [place] No Information 4 Janessa Kyle. . Referring Provider: Aureliano [address], [place], [address]. tel:[phone] [facility] [address] [facility], [place], [address], [place] tel:[phone] [place] No Information 4 Janessa Kyle. . Referring Provider: Aureliano [address], [place], [address]. tel:[phone] [facility] [address] [facility], [place], [place], [address], [place] tel:[phone] [place] No Information 4 Muehl Cam. [address] [place] [address], [address], [place], [facility], . tel: [phone] Referring Provider: Aureliano [address], [place], [address]. tel:[phone] [facility] [address] [facility], [place], [address], [place] tel:[phone] [place] No Information 4 Muehl Cam. [address] [place] [address], [address], [place], [facility], . tel: [phone] Referring Provider: Aureliano [address], [place], [address]. tel:[phone] [facility] [address] [facility], [place], [address], [place] tel:[phone] [place] No Information 4 Muehl Cam. [address] [place] [address], [address], [place], [facility], . tel: [phone] Referring Provider: Quentin [place], [address], [place], [address]. tel:[phone] [facility] [address] [facility], [place], [address], [place] tel:[phone] [place] No Information Brando-2 - 4 Muehl Cam. [address] [place] [address], [address], [place], [facility], . tel: [phone] Referring Provider: Aureliano Miller, [place], [address]. tel:[phone] [facility] [address] [facility] [address], [place], [address], [place] tel:[phone] [place] No Information Sep-2 0- 4 Delvis Patel. . Referring Provider: Aureliano Miller, [place], [address]. tel:[phone] [facility] [address] [facility] [address], [place], [place], [address], [place] tel:[phone] [place] No Information Sep-1 4 Nichole Strange . Referring Provider: Aureliano Miller, [place], [address]. tel:[phone] [facility] [address], [id number], [place] tel:[phone] [place] No Information Sep-1 0-202 4 Muehl Cam. [address] [place] [address], [address], [place], [facility], [place]. tel: [phone] Referring Provider: Aureliano Miller, [place], [address]. tel:[phone] [facility] [facility] [facility], [place], [place], [address], [place] tel:[phone] [place] No Information Brando-0 5-202 4 Muehl Cam. [address] [place] [address], [address], [place], [facility], . tel: [phone] Referring Provider: [place], [address]. tel:[phone] [facility] [address] [facility] [address], [place], [address], tel:[phone] [place] No Information Brando-0 3- 4 Suzette Presley. [address] [place] [address], [address], [place], [facility], . tel: [phone] Referring Provider: [place], [address]. tel:[phone] [facility] [address] [facility] [address], [place], [address], [place] tel:[phone] [place] No Information August-2 4 Delvis Kramer . Referring Provider: [place], [address]. tel:[phone] [facility] [address] [facility] [address], [place], [address], [place] tel:[phone] [place] No Information August-2 4 Mio Levy. [address] [place] [address], [address], [place], [facility], . tel: [phone] Referring Provider: [place], [address]. tel:[phone] [facility] [address] [facility] [address], [place], [address], [place] tel:[phone] [place] No Information August-2 0- 4 Suzette Presley. [address] [place] [address], [address], [place], [facility], . tel: [phone] Referring Provider: [place], [address]. tel:[phone] [employer] [facility] 300, [place], [place], [address], tel:[phone] [place] No Information 4 Nichole Gallegos. . Referring Provider: [place], [address]. tel:[phone] [employer]2[address] [facility] [address], [place], [place], [address], tel:[phone] [place] No Information 4 BergeronJoanna Hernandezla. [id number] [place] [address], [address], [place], [facility], . tel: [phone] Referring Provider: Aureliano Miller, [place], [address]. tel:[phone] Family History Family Member Type Diagnosis Age At Onset No Information Payers Payer name Insurance type Covered democrat ID Jada santos(s) Pareshna [id number] Social History Type Description Quantity Date Captured Comments Sex Male Smoking Status No Information Chief Complaint And Reason For Visit No Information Reason For Referral Reason For Referral No Information History Of Present Illness Encounter Date Complaint History Of Prese nt Illness No Information Functional Status Date Functional Assessmen t No Information Instructions Date Instruction Additional Infor mation No Information Assessments Type Assessment Date No Information Patient Care Teams Name Effective Dates (start - stop) Status Members No Information
--- OUTSIDE RECORDS SUMMARY | 2024-09-02 18:53 | XMS_ITS | Encounter Summary ---
Author Organization [facility] Address [address] [place] [address] Care Team Providers Care Legislative Advocate Name Role Phone Unavailable Primary Care Provider Unavailabl e Encounter Details Date Type Department Care Team (Late st Contact Info) Description 07/02/2004 Outpatient Historical [facility] Medicine [address] [place] [phone] Larry Patel, DO [address] [facility] [place] [phone] Social History Tobacco Use Types Packs/Day Years Used Date Smoking Tobacco: Never Assessed Sex and Gender Information Value Date Recorded Sex Assigned at Not on file Legal 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
--- OUTSIDE RECORDS SUMMARY | 2024-09-02 18:53 | XMS_ITS | Clinical Summary ---
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 Gender Identity Not on file Sexual Orientation Not on file Plan of Treatment Health Maintenance Due Date Last Done Comments Hepatitis C Virus (HCV) Screening 1969 TdaP Immunization 1969 Hepatitis B Immunization (1 of 3 - 19+ 3-dose series) 1988 Cologuard 2019 Immunochemical Fecal Occult Blood 2019 Pneumococcal Immunization (5 0+ years) (1 of 1 - PCV) 2019 Zoster Immunization (1 of 2) 2019 Influenza Immunization (#1) 2023 SARS-COV-2 Immunization ( - 2023- season) 2023 Colonoscopy 07/07/2030 07/07/2020 Colorectal Cancer Screening 07/07/2030 Respiratory Syncytial Virus (RSV) Immunization (Adult) (1 - 1-dose 75+ series) 2044 07/07/2020 Meningococcal Immunization (ACWY) Aged Out No longer eligible based on patient's age to complete this topic Pneumococcal Immunization Combined Aged Out No longer eligible based on patient's age to complete this topic Rotavirus Immunization Aged Out No lo nger eligible based on patient's age to complete this topic Procedures Procedure Name Priority Date/Time Associated Diagnosis Comments COLONOSCOPY Routine 07/07/2020 from Last 3 Months or Most Recently Relevant to Health Maintenance Results * COLONOSCOPY (07/07/2020) Glen Stoll DO PROCEDURE/MINOR SURGICAL ORDERA BLES Final Result from Last 3 Months or Most Recently Relevant to Health Maintenance Care Teams Retail Product Demo Specialist Relationship Specialty Start Date End Date Sherri Fisher, COLD MOLDING PRESS OPERATOR, DIRECTOR CORPORATE COMPLIANCE [address] [place] [id number] PCP - General Internal Medicine 05/27/20
[2024-09-02 19:23] VITALS: BP 141/92; PULSE 74; RESP 16; TEMP 36.1; O2SAT 99
--- NOTE | 2024-09-02 20:45 | ED.HEATRA ---
HPI - Head Injury General Chief complaint: Head Injury Stated complaint: trailer hitch fell and hit him on head Time Seen by Provider: 09/02/24 20:36 History of Present Illness HPI Narrative: Patient hit in the head by a trailer hitch, adverse he was seeing stars and had some pain to his right arm and eye that completely resolved after several seconds, he does not have any changes to his vision, no blurriness or loss. No nausea vomiting. No significant headache. Related Data Home Medications Medication Instructions Recorded Confirmed Last Taken Type bupropion HCl 150 mg tablet,12 hr 150 mg PO Q12H 06/20/20 08/20/24 07/06/20 History sustained-release famotidine 20 mg tablet (Pepcid) 20 mg PO DAILY 06/20/20 08/20/24 07/06/20 History lactobacillus combination no.8 3 3,000 mmu cells PO DAILY 06/20/20 08/20/24 07/06/20 History billion cell capsule (Adult Probiotic) diclofenac potassium 50 mg tablet 50 mg PO TID 08/20/24 08/20/24 Unknown History losartan 50 mg tablet 50 mg PO DAILY 08/20/24 08/20/24 Unknown History Allergies Allergy/AdvReac Type Severity Reaction Status Date / Time No Known Allergies Allergy Mild Verified 09/02/24 18:51 Review of Systems Review of Systems: All systems reviewed & are unremarkable except as noted in HPI and below PMFSH Past Medical History Medical History (Updated 09/03/24 @ 00:01 by Background Daemon) Depression Anxiety Social History Social History Smoking packs per day: 1.5 Smoking cigarettes per day: 30.0 Years smoked: 20 Smoking pack-years: 30.00 Smoking status: Former smoker Tobacco type: cigarettes Second hand tobacco smoke exposure: Yes Smoking end date: 04/18/04 Alcohol intake: current Drinks per week: 12 Substance use: current Substance use type: marijuana Other substance usage details: Gummies for sleep Living arrangements: with family Spiritual care concerns: No Exam Narrative: EXAMINATION OF ORGAN SYSTEMS/BODY AREAS: Constitutional: Vital signs per nursing GENERAL:[No acute distress, non-toxic appearing.] HEAD: Small contusion to back of head EYES: EOMI, conjunctiva normal ENT: Hearing grossly intact LUNGS: Nonlabored breathing. HEART: [Regular rate and rhythm] ABD: [Soft], [nontender to palpation] EXT: Normal range of motion SKIN: [No rashes or lesions.] NEURO: [Alert and oriented x 3. No gross focal sensory or strength deficits.] Clear speech, ambulating with normal steady gait. PSYCH: Normal affect Course Vital Signs Vital signs: Vital Signs Temperature 97 F L 09/02/24 19:23 Pulse Rate 74 09/02/24 19:23 Respiratory Rate 16 09/02/24 19:23 Blood Pressure 141/92 H 09/02/24 19:23 Pulse Oximetry 99 09/02/24 19:23 Temperature 97 F L 09/02/24 19:23 Pulse Rate 74 09/02/24 19:23 Respiratory Rate 16 09/02/24 19:23 Blood Pressure 141/92 H 09/02/24 19:23 Pulse Oximetry 99 09/02/24 19:23 MDM - Head Injury MDM Narrative Medical decision making narrative: Patient presents after being hit in the head, no loss of consciousness, initially had some pain to his right arm and I that completely resolved after several seconds, he has no vision loss, no numbness or weakness, he is very well-appearing on exam with normal neurologic exam including normal gait and speech Initial CT head concerning for possible punctate hemorrhage versus calcification, repeat an hour later shows nothing so likely just artifact Discussed with patient and were agreeable to outpatient management with return precautions and follow-up instructions for concussion Discharge Plan Discharge Clinical Impression: Closed head injury, Concussion without loss of consciousness Patient Disposition: Home Condition: Stable Instructions: Head Injury (ED) Additional Instructions: Please follow up with your doctor; you can always return for any further issues. If you notice anything concerning such as new numbness or weakness or loss of vision, go straight to the emergency room. Patient Language: Macedonian Prescriptions: No Action bupropion HCl 150 mg tablet sustained-release 12 hr 150 mg PO Q12H famotidine [Pepcid] 20 mg Tablet 20 mg PO DAILY Adult Probiotic 3 billion cell Capsule 3,000 mmu cells PO DAILY diclofenac potassium 50 mg tablet 50 mg PO TID losartan 50 mg tablet 50 mg PO DAILY Follow-up/Referrals: LISA,KELSEY LUDWIG [Primary Care Provider] -
--- OUTSIDE RECORDS SUMMARY | 2024-09-02 21:10 | XMS_ITS | Clinical Summary ---
Author Organization [facility] Address [address], [facility] [address] [place] [address] Phone Care Team Providers Care Microscopist Name Role Phone Sherri Fisher APRN, FABIENNE Primary Care Provider Social History Tobacco Use Types Packs/Day Years Used Date Smoking Tobacco: Never Assessed Sex and Gender Information Value Date Recorded Sex Assigned at Not on file Legal Sex Male 10:11 AM DEVELOPMENT AND HOUSING DIRECTOR Gender Identity Not on file Sexual Orientation [...] Recently Relevant to Health Maintenance Care Teams Microscopist Relationship Specialty Start Date End Date Sherri Fisher, HEM MARKER, PERL DEVELOPER [address] [place] [id number] PCP - General Internal Medicine 05/27/20
--- OUTSIDE RECORDS SUMMARY | 2024-09-02 21:10 | XMS_ITS | Encounter Summary ---
Author Organization [facility] Address [address] [place] [address] Care Team Providers Care Club Steward Name Role Phone Unavailable Primary Care Provider Unavailabl e Encounter Details Date Type Department Care Team (Late st Contact Info) Description 01/29/2004 Outpatient Historical [facility] [address] [place] [id number] Larry Patel, DO [address] [facility] [place] [phone] Social History Tobacco Use Types Packs/Day Years Used Date Smoking Tobacco: Never Assessed Sex and Gender Information Value Date Recorded Sex Assigned at Not on file Legal Sex Male 4:54 AM LAMP REPLACER Gender Identity Not on file Sexual Orientation Not on file documented as of this encounter Plan of Treatment Not on file documented as of this encounter Visit Diagnoses Not on filedocumented in this encounter
--- OUTSIDE RECORDS SUMMARY | 2024-09-02 21:10 | XMS_ITS | Encounter Summary ---
Author Organization [facility] Address [facility] [place] [address] Care Team Providers Care Stitch Welder Name Role Phone Sherri Fisher JYOTSNA Primary Care Provider [phone] Encounter Details Date Type Department Care Team (Late st Contact Info) Description 07/09/2023 Chrendst Message Enc [facility] - [place] [address] [place] [address] Raul Torres MD [address] [place] [address] Left leg pain Social History Tobacco Use [...] Sex Assigned at Male 06/06/2024 2:33 PM NEWS VIDEOTAPE EDITOR Legal Sex Male 4:17 PM CDT Gender Identity Male 06/01/2021 4:37 AM NEWS VIDEOTAPE EDITOR Sexual Orientation Straight 06/01/2021 4: 37 AM NEWS VIDEOTAPE EDITOR documented as of this encounter Functional Status * Over the past 2 weeks, how often have you been bothered by any of the following problems? Question Answer Date of Assessment Author Status Little interest or pleasure in doing things Several days 07/12/2023 12:13 PM CDT Sherri Fisher, SALES PERSON Acti ve Feeling down, depressed, or hopeless Not at all 07/12/2023 12:13 PM CDT Sherri Fisher, F FINANCIAL SUPERVISOR Active Patient Health Questionnaire-2 Score 1 07/12/2023 12:13 PM CDT Sherri Fisher FN P Active * Question Answer Date of Assessment Author Status Trouble falling or staying asleep, or sleeping too much Several days 07/12/2023 12:13 PM CDT Sherri Fisher, SALES PERSON Active Feeling tired or having little energy Several days 07/12/2023 12:13 PM CDT Eliud Fisheranda, SALES PERSON Active Poor appetite or overeating Not at all 07/12/2023 12:13 PM CDT Sherri Fisher, SALES PERSON Active Feeling bad about yourself - or that you are a failure or have let yourself or your family down Several days 07/12/2023 12:13 PM CDT Eliud Fisheranda, SALES PERSON Active Trouble concentrating on things, such as reading the newspaper or watching television Several days 07/12/2023 12:13 PM CDT Eliud Fisheranda, SALES PERSON Active Moving or speaking so slowly that other people could have noticed? Or the opposite - being so fidgety or restless that you have been moving around a lot more than usual. Not at all 07/12/2023 12:13 PM CDT Sherri Fisher, SALES PERSON Active Thoughts that you would be better off or hurting yourself in some way Not at all 07/12/2023 12:13 PM CDT Sherri Fisher, SALES PERSON Active Patient Health Questionnaire-9 Score 5 07/12/2023 12:13 PM CDT Sherri Fisher, SALES PERSON Active * If you checked off any [...] Description 09/21/2024 9:00 AM CDT Office Visit [facility] [place] [address] [place] [address] Raul Torres MD [address] [place] [address] documented as of this encounter Visit Diagnoses Not on filedocumented in this encounter Additional Health Concerns Assessment Noted Time PHQ-9 Depression Total Score: 2 10/03/19 21 11:46 AM CDT documented as of this encounter Care Teams Stitch Welder Relationship Specialty Start Date End Date Sherri Fisher FNP [address] [place] [id number] PCP - General Nurse Practitioner Family 12/20/18 documented as of this encounter
--- OUTSIDE RECORDS SUMMARY | 2024-09-02 21:10 | XMS_ITS | Clinical Summary ---
Author Organization [facility] Address [address] [place] [address] Care Team Providers Care Parking Garage Manager Name Role Phone Sherri Fisher JYOTSNA Primary Care Provider [phone] Allergies No known active allergies Medications lansoprazole [...] Care Team Description 08/27/2024 MyChart Message Enc [facility] Orthopedic & Sports Medicine [facility] [address] [place] [address] Branden Salgado MD Upcoming hand Surgery 07/23/2024 Telephone [facility] Family & Internal [address] [address] Sherri Fisher FNP Lab Results 07/13/2024 7:20 AM CDT Office Visit [facility] Family Internal [address] [address] Sherri Fisher FNP Annual (Patient here today for Annual HM- ) 07/13/2024 - 07/13/2024 11:59 PM CDT Hospital Encounter [facility] [address] [place] [address] Sherri Fisher FNP Discharge Disposition: Home or Self Care (Routine Discharge) 07/13/2024 Travel 07/12/2024 Orders Only [facility] Family Internal [address] [address] Lilliam Muniz MA 06/19/2024 Scan HEALTH INFO SRVCS Scanned, Doc Med Group Image (SCAN) 06/08/2024 Telephone [facility] Orthopedic & Sports Medicine [facility] [address] [place] [address] Branden Salgado MD Medication Reconciliation 06/07/2024 10:15 AM DISABILITIES SERVICES OFFICER Office Visit [facility], [address] [address] Nguyen Goncalves MD Follow Up (6 month) [...] Given: Yes Comments:no longer smoker//vapes, Provider to [place] Alcohol Use Standard Drinks/Week Comments Yes 6.7 [...] Sex Assigned at Male 06/06/2024 2:33 PM DISABILITIES SERVICES OFFICER Legal Sex Male 4:17 PM CDT Gender Identity Male 06/01/2021 4:37 AM DISABILITIES SERVICES OFFICER Sexual Orientation Straight 06/01/2021 4: 37 AM DISABILITIES SERVICES OFFICER Last Filed Vital Signs Vital Sign Reading [...] Description 09/21/2024 9:00 AM CDT Office Visit [facility] Medical Group Orthopedic & Sports Medicine - [place] [address] [place] [address] Raul Torres MD [address] [place] [address] Health Maintenance Due Date Last Done Comments [...] Zoster Vaccines Completed 06/26/2022, 03/26/2022 PHQ-2 (Physician [place]) Completed 07/13/2024 Meningococcal B Vaccine Aged Out [...] Spann, RN Medical Devices Implanted Type Area Career Development Coordinator/Teacher Device Identifier Shelf Expiration Date Model / Serial / Lot Attune Tibial Base Affixium Fixed Bearing Implanted:Qty : 1 on 10/13/2023 by Branden Salgado MD at [facility] Knee Components Left: Knee DEPUY SYNTHES [id number] 09/15/2032 1506-21- 010 / / [id number] Attune Femoral Porocoat Cruciate Retaining Implanted:Qty : 1 on 10/13/2023 by Branden Salgado MD at [facility] Knee Components Left: Knee DEPUY SYNTHES [id number] 08/15/2032 1504-01- 109 / / [id number] Attune Tibial Insert Fixed Bearing Medial Stabilized Implanted:Qty : 1 on 10/13/2023 by Branden Salgado MD at [facility] Knee Components Left: Knee DEPUY SYNTHES [id number] 08/15/2030 1518-20- 910 / / [id number] Procedures [...] HEPATITIS C ANTIBODY Routine 03/30/2021 12:03 PM DISABILITIES SERVICES OFFICER Need for hepatitis C screening test COLONOSCOPY GENERIC (SCAN ORDER) 07/07/2020 from Last 3 Months or Most Recently Relevant to Health Maintenance Results * TSH W/REFLEX (07/13/2024 9:12 AM CDT) TSH 3.033 0.358 - 3.740 uIU/ML 07/13/2024 3:25 PM CDT [facility] 07/13/2024 9:12 AM CDT Sherri Fisher [facility] LABORATORY Final Result Performing Organization Address City/[facility]/ZIP Co de Phone Number [address]Y [address] [place] [address], [place] [phone] * (ABNORMAL) HEMOGLOBIN, GLYCOSYLATED (07/13/2024 9:12 AM CDT) HGB A1C 5.7 4.5 - 6.2 % 07/13/2024 3:08 PM CDT [facility] ESTIMATED AVG GLUCOSE 117(H) 74 - 106 MG/DL 07/13/2024 3:08 PM CDT [facility] 07/13/2024 9:12 AM CDT Sherri Fisher [facility] Final Result Performing Organization Address [facility] de Phone Number JERRY SANCHEZ [address] [place] [address], [place] [phone] * (ABNORMAL) URINALYSIS (07/13/2024 9:12 AM CDT) COLOR (U) YELLOW 07/13/2024 3:47 PM CDT [facility] TRANSPARENCY CLEAR CLEAR 07/13/2024 3:47 PM CDT [facility] SPECIFIC GRAVITY (U) 1.020 1.003 - 1.040 07/13/2024 3:47 PM CDT [facility] U PH 6.0 5.0 - 9.0 07/13/2024 3:47 PM CDT [facility] PROTEIN RANDOM (U) NEGATIVE NEGATIVE 07/13/2024 3:47 PM CDT [facility] GLUCOSE (U) NEGATIVE NEGATIVE 07/13/2024 3:47 PM CDT [facility] KETONES MG/DL (U) NEGATIVE NEGATIVE 07/13/2024 3:47 PM CDT [facility] BILIRUBIN (U) NEGATIVE NEGATIVE 07/13/2024 3:47 PM CDT [facility] BLOOD (U) NEGATIVE NEGATIVE 07/13/2024 3:47 PM CDT [facility] UROBILINOGEN 0.2 0.0 - 2.0 EU/DL 07/13/2024 3:47 PM CDT [facility] NITRITES NEGATIVE NEGATIVE 07/13/2024 3:47 PM CDT [facility] LEUKOCYTES (U) NEGATIVE NEGATIVE 07/13/2024 3:47 PM CDT [facility] RBC/HPF 0-3 0 - 3 /HPF 07/13/2024 3:47 PM CDT [facility] WBC/HPF 0-3 0 - 3 /HPF 07/13/2024 3:47 PM CDT [facility] EPI/HPF 0-3 /HPF 07/13/2024 3:47 PM CDT [facility] BACTERIA (U) TRACE(A) NONE SEEN 07/13/2024 3:47 PM CDT [facility] HYALINE CASTS 0-2 /LPF 07/13/2024 3:47 PM CDT [facility] MUCUS MODERATE 07/13/2024 3:47 PM CDT [facility] URINE SPECIMEN OBTAINED BY CLEAN CATCH PROCEDURE / Unknown 07/13/2024 9:12 AM CDT us Sherri Fisher WEB USER EXPERIENCE STRATEGIST URINE ORDERABLES Final Result [facility] [address] [place] [address], [place] [phone] * VITAMIN B-12 (07/13/2024 9:12 AM CDT) VITAMIN B12 S/P/B 541 193 - 986 PG/ML 07/13/2024 3:25 PM CDT [facility] 07/13/2024 9:12 AM CDT Sherri Fisher [facility] Final Result Performing Organization Address [facility] Co de Phone Number [facility] [address] [place] [address], [place] [phone] * PROSTATE SPECIFIC ANTIGEN,SCREENING (07/13/2024 9:12 AM CDT) PSA 1.24 <4.00 NG/ML 07/13/2024 3:10 PM CDT [facility] Comment: ASSAY PERFORMED BY ENZYME IMMUNOASSAY METHODOLOGY USING Heatmaps REAGENT. PATIENT RESULTS DETERMINED BY ASSAYS FROM DIFFERENT MANUFACTURERS AND/OR BY DIFFERENT METHODS MAY NOT BE COMPARABLE. 07/13/2024 9:12 AM CDT [facility] Final Result Performing Organization Address [facility] Co de Phone Number [place] [address] [place] [address], [place] [phone] * (ABNORMAL) COMPREHENSIVE METABOLIC PANEL (07/13/2024 9:12 AM CDT) SODIUM S/P/B 139 136 - 145 MMOL/L 07/13/2024 3:25 PM CDT [facility] POTASSIUM S/P/B 4.7 3.5 - 5.1 MMOL/L 07/13/2024 3:25 PM CDT [facility] CHLORIDE S/P/B 105 98 - 107 MMOL/L 07/13/2024 3:25 PM CDT [facility] CO2 30.3 21 - 32 MMOL/L 07/13/2024 3:25 PM CDT [facility] GLUCOSE 107(H) 70 - 99 MG/DL 07/13/2024 3:25 PM CDT [facility] BUN 14 7 - 18 MG/DL 07/13/2024 3:25 PM T [facility] CREATININE S/P/B 1.01 0.70 - 1.30 MG/DL 07/13/2024 3:25 PM T [facility] CALCIUM S/P/B 9.0 8.4 - 10.5 MG/DL 07/13/2024 3:25 PM CDT [facility] BILIRUBIN TOTAL S/P/B 0.7 0.2 - 1.0 MG/DL 07/13/2024 3:25 PM T [facility] ALKALINE PHOSPHATASE S/P/B 56 45 - 115 U/L 07/13/2024 3:25 PM T [facility] AST 13(L) 15 - 37 U/L 07/13/2024 3:25 PM T [facility] ALT 31 16 - 63 U/L 07/13/2024 3:25 PM T [facility] TOTAL PROTEIN S/P/B 6.9 6.4 - 8.2 G/DL 07/13/2024 3:25 PM T [facility] ALBUMIN S/P/B 4.2 3.4 - 5.0 G/DL 07/13/2024 3:25 PM T [facility] ANION GAP 3.7(L) 5 - 15 MMOL/L 07/13/2024 3:25 PM T [facility] Comment:REFERENCE RANGE NOT ESTABLISHED OSMOLALITY (CALC) 289 MOSM/KG 025 3:25 PM T [facility] Comment:REFERENCE RANGE NOT ESTABLISHED GFR ESTIMATE 88(L) >90 ML/MIN/1. 73 M2 07/13/2024 3:25 PM T [facility] GFR NOTES GFR REFERENCE S: 07/13/2024 3:25 PM T [facility] Comment: THE ESTIMATED GFR IS CALCULATED USING [...] m2 07/13/2024 9:12 AM CDT Sherri Natalia [facility] LABOR[facility] Final Result [facility] [address] [place] [address], * LIPID PANEL (07/13/2024 9:12 AM CDT) CHOLESTEROL 178 <200 MG/DL 07/13/2024 3:25 PM CDT [facility] TRIGLYCERIDES 136 <150 MG/DL 07/13/2024 3:25 PM CDT [facility] HDL 62 >40 MG/DL 07/13/2024 3:25 PM CDT [facility] LDL-C 89 <100 MG/DL 07/13/2024 3:25 PM CDT [facility] VLDL CALCULATION 27 5 - 28 MG/DL 07/13/2024 3:25 PM CDT [facility] CHOL/HDL RATIO 2.9 0.0 - 4.0 07/13/2024 3:25 PM CDT [facility] LDL/HDL 1.4 0.41 - 2.13 07/13/2024 3:25 PM CDT [facility] NON HDL CHOLESTEROL 116 <140 MG/DL 07/13/2024 3:25 PM CDT [facility] 07/13/2024 9:12 AM CDT Sherri Fisher [facility] LAB[facility] Final Result Performing Organization Address City/[facility]/ZIP Co de Phone Number [facility] [address] [place] [address], * FOLIC ACID SERUM (07/13/2024 9:12 AM CDT) FOLATE 16.7 8.6 - 58.9 NG/ML 07/13/2024 4:01 PM CDT [facility] 07/13/2024 9:12 AM CDT Sherri Almodovargertrude [facility] LABOR[facility]ORY Final Result Performing Organization Address City/[facility] Co de Phone Number [facility] [address] [place] [address], [place] [phone] * CBC W/DIFF AUTOMATED (07/13/2024 9:12 AM CDT) WBC 5.31 4.00 - 10.80 x10'3/uL 07/13/2024 3:00 PM CDT [facility] RBC 5.13 4.50 - 6.10 x10'6/uL 07/13/2024 3:00 PM CDT [facility] HGB 15.9 13.0 - 18.0 G/DL 07/13/2024 3:00 PM CDT [facility] HCT 47.8 37.0 - 52.0 % 07/13/2024 3:00 PM CDT [facility] MCV 93.2 78.0 - 100.0 FL 07/13/2024 3:00 PM CDT [facility] MCH 31.0 27.0 - 31.0 PG 07/13/2024 3:00 PM CDT -[facility] MCHC 33.3 33.0 - 36.0 G/DL 07/13/2024 3:00 PM CDT -[facility] RDW 12.9 11.5 - 14.5 % 07/13/2024 3:00 PM CDT [facility] PLT 290 150 - 350 x10'3/uL 07/13/2024 3:00 PM CDT [facility] MPV 9.0 7.4 - 10.4 FL 07/13/2024 3:00 PM CDT -[facility] DIFFERENTIAL TYPE AUTOMATED DIFFERENTIAL 07/13/2024 3:00 PM CDT -[facility] NEUTROPHILS % 51.1 % 07/13/2024 3:00 PM CDT -[facility] LYMPHOCYTES % 37.9 % 07/13/2024 3:00 PM CDT [facility] MONOCYTES % 8.1 % 07/13/2024 3:00 PM CDT [facility] EOSINOPHILS % 2.1 % 07/13/2024 3:00 PM CDT -[facility] BASOPHILS % 0.6 % 07/13/2024 3:00 PM CDT [facility] IMMATURE GRANS % 0.2 % 07/13/2024 3:00 PM CDT [facility] ABS. NEUTROPHILS 2.72 1.60 - 8.30 x10'3/uL 07/13/2024 3:00 PM CDT [facility] ABS. LYMPHOCYTES 2.01 0.80 - 4.70 x10'3/uL 07/13/2024 3:00 PM CDT [facility] ABS. MONOCYTES 0.43 0.00 - 1.50 x10'3/uL 07/13/2024 3:00 PM CDT [facility] ABS. EOSINOPHILS 0.11 0.00 - 0.40 x10'3/uL 07/13/2024 3:00 PM CDT [facility] ABS. BASOPHILS 0.03 0.00 - 0.20 x10'3/uL 07/13/2024 3:00 PM CDT [facility] ABS. IMMATURE GRANULOCYTES 0.01 0.00 - 0.03 x10'3/uL 07/13/2024 3:00 PM CDT [facility] 07/13/2024 9:12 AM CDT Sherri Fisher [facility] LABOR[facility]ORY Final Result Performing Organization Address City/[facility]/ZIP Co de Phone Number [address] [address], [place] [phone] * VITAMIN D, 25 [place] (07/13/2024 9:12 AM CDT) VITAMIN D 25 HYDROXY TOTAL S/P/B 31.1 30 - 100 NG/ML 07/13/2024 3:25 PM CDT [facility] Comment: DEFICIENT <20 INSUFFICIENT 20-30 SUFFICIENT 30-100 07/13/2024 9:12 AM CDT Sherri Fisher [facility] LABORATORY Final Result [address] [address], [place] [phone] * (ABNORMAL) MAGNESIUM (07/13/2024 9:12 AM CDT) MAGNESIUM 2.5(H) 1.8 - 2.4 MG/DL 07/13/2024 3:25 PM CDT [facility] 07/13/2024 9:12 AM CDT Sherri Fisher [facility] LAB[facility] Final Result [facility] [address] [place] [address], * PROLACTIN (07/13/2024 9:12 AM CDT) PROLACTIN 6.3 2.5 - 17.4 NG/ML 07/13/2024 5:28 PM CDT [facility] Comment: ASSAY PERFORMED BY CHEMILUMINESCENCE METHODOLOGY USING Heatmaps [place] REAGENT. PATIENT RESULTS DETERMINED BY ASSAYS USING DIFFERENT MANUFACTURERS FOR METHODS MAY NOT BE COMPARABLE. 07/13/2024 9:12 AM CDT us [place] [id number]|2024-09-02 21:11:00|2024-09-02 21:10:00|XMS_ITS|BKG DAEMON|External Medical Summaries|[id number]|" Encounter Summary Created on: September 02, 2024 Moshe Haq : 1970 Sex: Male Author Organization [facility] Address [address] [place] [address] Care Team Providers Care Parking Garage Manager Name Role Phone Unavailable Primary Care Provider Unavailabl e Encounter Details Date Type Department Care Team (Late st Contact Info) Description 07/02/2004 Outpatient Historical [facility] Family Medicine [address] [place] [address] Larry Patel, [address] [place] [phone] Social History Tobacco Use Types Packs/Day Years Used Date Smoking Tobacco: Never Assessed Sex and Gender Information Value Date Recorded Sex Assigned at Not on file Legal Sex Male 4:54 AM DISABILITIES SERVICES 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 "
--- OUTSIDE RECORDS SUMMARY | 2024-09-02 21:10 | XMS_ITS | Encounter Summary ---
Author Organization [facility] Address [facility] [place] [address] Care Team Providers Care Dye Tank Tender Name Role Phone Sherri Fisher Primary Care Provider [phone] Encounter Details Date Type Department Care Team (Late st Contact Info) Description 06/09/2022 Medivie Therapeuticst Message Enc [facility] Family & Internal Medicine [facility] [address] [place] [address] Sherri Fisher FNP [address] [place], [place] [id number] Arthritis meds Social History Tobacco Use Types [...] Sex Assigned at Male 06/06/2024 2:33 PM AUTOCUTTER Legal Sex Male 4:17 PM CDT Gender Identity Male 06/01/2021 4:37 AM AUTOCUTTER Sexual Orientation Straight 06/01/2021 4: 37 AM AUTOCUTTER documented as of this encounter Plan of Treatment Upcoming Encounters Date Type Department Care Team (Late st Contact Info) Description 09/21/2024 9:00 AM CDT Office Visit [facility] Orthopedic & Sports Medicine - [place] [address] [place] [address] Raul Torres MD [address] [place] [address] documented as of this encounter Visit Diagnoses Not on filedocumented in this encounter Additional Health Concerns Infection Onset Date Last Indicated Resolved Time COVID-19 Rule Out 04/20/2023 04/20/2023 04/20/2023 2:48 PM AUTOCUTTER Influenza - Seasonal 04/20/2023 04/20/2023 024 12:32 AM AUTOCUTTER Assessment Noted Time PHQ-9 Depression Total Score: 2 10/03/19 21 11:46 AM CDT documented as of this encounter Care Teams Dye Tank Tender Relationship Specialty Start Date End Date Sherri Fisher FNP [address] [place] [id number] PCP - General Nurse Practitioner Family 12/20/18 documented as of this encounter
--- OUTSIDE RECORDS SUMMARY | 2024-09-02 21:10 | XMS_ITS | Encounter Summary ---
Author Organization [facility] Address [facility] [place] [address] Care Team Providers Care Aviation Technical Systems Specialist Name Role Phone Sherri Fisher JYOTSNA Primary Care Provider [phone] Encounter Details Date Type Department Care Team (Late st Contact Info) Description 08/09/2023 Rezee Message Enc [facility] Medical Group Orthopedic & Sports Medicine - [place] [address] [place] [address] Branden Salgado MD [address] [place] [address] Appointment for joint replacement Social History Tobacco Use Types Packs/Day Years Used Date Smoking Tobacco: Former Cigarettes 1.5 22 1 984 - 04/18/2005 Passive Smoke Exposure: Past Smokeless Tobacco: Never Comments:no longer smoker//v apes, Provider to [place] Alcohol Use Standard Drinks/Week Comments Yes 6.7 [...] Sex Assigned at Male 06/06/2024 2:33 PM SPORTS NUTRITIONIST Legal Sex Male 4:17 PM CDT Gender Identity Male 06/01/2021 4:37 AM SPORTS NUTRITIONIST Sexual Orientation Straight 06/01/2021 4: 37 AM SPORTS NUTRITIONIST documented as of this encounter Progress Notes [...] Description 09/21/2024 9:00 AM CDT Office Visit [facility] Medical Group Orthopedic & Sports Medicine - [place] [address] [place] [address] Raul Torres MD [address] [place] [address] documented as of this encounter Visit Diagnoses Not on filedocumented in this encounter Additional Health Concerns Assessment Noted Time PHQ-9 Depression Total Score: 5 07/12/19 24 12:13 PM CDT documented as of this encounter Care Teams Aviation Technical Systems Specialist Relationship Specialty Start Date End Date Shreri Fisher FNP [address] [place] [address] PCP - General Nurse Practitioner Family 12/20/18 documented as of this encounter
--- OUTSIDE RECORDS SUMMARY | 2024-09-02 21:10 | XMS_ITS | Encounter Summary ---
Author Organization [facility] Address [facility] [place] [address] Care Team Providers Care Pattern Repair Person Name Role Phone Sherri Fisher JYOTSNA Primary Care Provider [phone] Encounter Details Date Type Department Care Team (Late st Contact Info) Description 09/01/2023 Padloc Message Enc [facility], [address] [address] Mychart, [facility] Provider APPT Social History Tobacco Use Types Packs/Day Years Used Date Smoking Tobacco: Former Cigarettes 1.5 22 1 984 - 04/18/2005 Passive Smoke Exposure: Past Smokeless Tobacco: Never Comments:no longer smoker//v apes, Provider to [place] Alcohol Use Standard Drinks/Week Comments Yes 6.7 [...] Sex Assigned at Male 06/06/2024 2:33 PM TOBACCO PACKING MACHINE OPERATOR Legal Sex Male 4:17 PM CDT Gender Identity Male 06/01/2021 4:37 AM TOBACCO PACKING MACHINE OPERATOR Sexual Orientation Straight 06/01/2021 4: 37 AM TOBACCO PACKING MACHINE OPERATOR documented as of this encounter Plan of Treatment Upcoming Encounters Date Type Department Care Team (Late st Contact Info) Description 09/21/2024 9:00 AM CDT Office Visit [facility] Medical Group Orthopedic & Sports Medicine - [place] [address] [place] [address] Raul Torres MD [address] [place] [address] documented as of this encounter Visit Diagnoses Not on filedocumented in this encounter Additional Health Concerns Assessment Noted Time PHQ-9 Depression Total Score: 5 07/12/19 24 12:13 PM CDT documented as of this encounter Care Teams Pattern Repair Person Relationship Specialty Start Date End Date Sherri Fisher FNP [address] [place] [address] PCP - General Nurse Practitioner Family 12/20/18 documented as of this encounter
--- OUTSIDE RECORDS SUMMARY | 2024-09-02 21:10 | XMS_ITS | Encounter Summary ---
Author Organization [facility] Address [facility] [place] [address] Care Team Providers Care Magnetic Prospector Name Role Phone Sherri Fisher JYOTSNA Primary Care Provider [phone] Encounter Details Date Type Department Care Team (Late st Contact Info) Description 09/19/2023 AdsIt Message Enc [facility] Medical Group Orthopedic & Sports Medicine - [place] [address] [place] [address] Raul Torres MD [address] [place] [address] Appointment on Social History Tobacco Use Types Packs/Day Years Used Date Smoking Tobacco: Former Cigarettes 1.5 22 1 984 - 04/18/2005 Passive Smoke Exposure: Past Smokeless Tobacco: Never Comments:no longer smoker//v apdon, Provider to [place] Alcohol Use Standard Drinks/Week Comments Yes 6.7 [...] Sex Assigned at Male 06/06/2024 2:33 PM VICE PRESIDENT CONSULTING SERVICES Legal Sex Male 4:17 PM CDT Gender Identity Male 06/01/2021 4:37 AM VICE PRESIDENT CONSULTING SERVICES Sexual Orientation Straight 06/01/2021 4: 37 AM VICE PRESIDENT CONSULTING SERVICES documented as of this encounter Plan of Treatment Upcoming Encounters Date Type Department Care Team (Late st Contact Info) Description 09/21/2024 9:00 AM CDT Office Visit [facility] Orthopedic & Sports Medicine - [place] [address] [place] [address] Raul Torres MD [address] [place] [address] documented as of this encounter Visit Diagnoses Not on filedocumented in this encounter Additional Health Concerns Assessment Noted Time PHQ-9 Depression Total Score: 5 07/12/19 24 12:13 PM CDT documented as of this encounter Care Teams Magnetic Prospector Relationship Specialty Start Date End Date Sherri Fisher FNP [address] [place] [address] PCP - General Nurse Practitioner Family 12/20/18 documented as of this encounter
--- OUTSIDE RECORDS SUMMARY | 2024-09-02 21:10 | XMS_ITS | Encounter Summary ---
Author Organization [facility] Address [facility] [place] [address] Care Team Providers Care Color Paste Mixing Supervisor Name Role Phone Sherri Fisher JYOTSNA Primary Care Provider [phone] Encounter Details Date Type Department Care Team (Late st Contact Info) Description 08/27/2024 Complete Solar Message Enc [facility] Medical Group Orthopedic & Sports Medicine - [place] [address] [place], [place] [phone] Branden Salgado MD [address] [place] [address] Upcoming hand Surgery Social History Tobacco Use Types Packs/Day Years Used Date Smoking Tobacco: Former Cigarettes 1.5 22 1 984 - 04/18/2005 Passive Smoke Exposure: Past Smokeless Tobacco: Never Comments:no longer smoker//v apes, Provider to [place] Alcohol Use Standard Drinks/Week Comments Yes 6.7 [...] Sex Assigned at Male 06/06/2024 2:33 PM PRODUCT DEVELOPMENT COORDINATOR Legal Sex Male 4:17 PM CDT Gender Identity Male 06/01/2021 4:37 AM PRODUCT DEVELOPMENT COORDINATOR Sexual Orientation Straight 06/01/2021 4: 37 AM PRODUCT DEVELOPMENT COORDINATOR documented as of this encounter Functional Status [...] Description 09/21/2024 9:00 AM CDT Office Visit [facility] Medical Group Orthopedic & Sports Medicine - [place] [address] [place] [address] Raul Torres MD [address] [place] [address] documented as of this encounter Goals Goal [...] documented as of this encounter Care Teams Color Paste Mixing Supervisor Relationship Specialty Start Date End Date Sherri Fisher FNP [address] [place] [address] PCP - General Nurse Practitioner Family 12/20/18 documented as of this encounter
--- OUTSIDE RECORDS SUMMARY | 2024-09-02 21:10 | XMS_ITS | Encounter Summary ---
Author Organization [facility] Address [facility] [place] [address] Care Team Providers Care Contracts Specialist Name Role Phone Sherri Fisher JYOTSNA Primary Care Provider [phone] Encounter Details Date Type Department Care Team (Late st Contact Info) Description 11/21/2023 PLASTIQt Message Enc [facility] [place] [address] [place], [place] [id number] [phone] Branden Salgado MD [address] [place] [address] November 22 appt Social History Tobacco Use Types Packs/Day Years Used Date Smoking Tobacco: Former Cigarettes 1.5 22 1 984 - 04/18/2005 Passive Smoke Exposure: Past Smokeless Tobacco: Never Comments:no longer smoker//v apes, Provider to [place] Alcohol Use Standard Drinks/Week Comments Yes 6.7 [...] Sex Assigned at Male 06/06/2024 2:33 PM DRUG ABUSE COUNSELOR Legal Sex Male 4:17 PM CDT Gender Identity Male 06/01/2021 4:37 AM DRUG ABUSE COUNSELOR Sexual Orientation Straight 06/01/2021 4: 37 AM DRUG ABUSE COUNSELOR documented as of this encounter Functional Status [...] Description 09/21/2024 9:00 AM CDT Office Visit [facility] [place] [address] [place] [address] Raul Torres MD [address] [place] [address] documented as of this encounter Goals Goal [...] documented as of this encounter Care Teams Contracts Specialist Relationship Specialty Start Date End Date Sherri Fisher FNP [address] [place] [address] PCP - General Nurse Practitioner Family 12/20/18 documented as of this encounter
--- OUTSIDE RECORDS SUMMARY | 2024-09-02 21:11 | XMS_ITS | Continuity of Care Document ---
Author Organization [facility] Address [address] [facility] [address] [place] [phone] Phone Care Team Providers Care Pain Medicine Physician Name Role Phone Cam Cote Unavailable Unavailable [...] Therapy Therapeutic Activities Therapeutic Exercise Neuromuscular Re-Ed Hot or Cold Pack Therapeutic Activities Neuromuscular Re-Ed Therapeutic Exercise Hot or Cold Pack Therapeutic Activities Neuromuscular Re-Ed Manual Therapy Therapeutic Exercise Hot or Cold Pack Therapeutic Activities Neuromuscular Re-Ed Therapeutic Exercise Manual Therapy Hot or Cold Pack Therapeutic Activities Neuromuscular Re-Ed Therapeutic Exercise Manual Therapy Hot or Cold Pack Therapeutic Activities Neuromuscular Re-Ed Manual Therapy Hot or Cold Pack Therapeutic Exercise Therapeutic Activities Neuromuscular Re-Ed Therapeutic [...] Therapy Therapeutic Activities Neuromuscular Re-Ed Therapeutic Exercise Therapeutic Activities Neuromuscular Re-Ed Therapeutic Exercise Hot or Cold Pack Therapeutic Activities Therapeutic Exercise Neuromuscular Re-Ed Therapeutic Activities Neuromuscular Re-Ed Therapeutic Exercise Hot or Cold Pack Manual Therapy Therapeutic Activities Therapeutic Exercise Neuromuscular Re-Ed Manual Therapy Therapeutic Activities Neuromuscular Re-Ed Therapeutic Exercise Manual Therapy Therapeutic Activities Therapeutic Exercise Neuromuscular Re-Ed Hot or Cold Pack Manual Therapy Therapeutic Activities Neuromuscular Re-Ed Therapeutic Exercise PT Evaluation Moderate Complexity Therapeutic Activities Neuromuscular Re-Ed Therapeutic Exercise Manual Therapy Advance Directives Directive Yes / No Effective Date File Name No Information Encounters Encounter Description Practice Location Reason(s) For Visit Diagnoses Date Provider Providers Copied on Encounter [facility] [address], [id number], tel:[phone] [place] No Information 5 Mio Levy. [address] [facility], [facility] [address], [place], [facility] [place], . tel: [phone] [address], [id number], tel:[phone] [place] No Information 4 Mujamesl Cam. [address] [facility], [facility] [address], [place], [facility] [place]. tel: [phone] Referring Provider: Quentin Cobian, [address], [address]. tel:[phone], [id number], tel:[phone] [place] No Information 4 Muehl Cam. [address] [facility], [facility] [address], [place], [facility] [place]. tel: [phone] Referring Provider: Aureliano Christianson [address], [place], [address]. tel:[phone], [place], [place], [id number], tel:[phone] [place] No Information 4 Muehl Cam. [address] [facility], [address], [place], [place], [facility] [place], . tel: [phone] Referring Provider: Aureliano Christianson [address], [place], [address]. tel:[phone], [place], [place], [id number], tel:[phone] [place] No Information 4 Muehl Cam. [address] [facility], [address], [place], [facility] [place], . tel: [phone] Referring Provider: Aureliano Christianson [address], [place], [address]. tel:[phone], [place], [place], [id number], [place] tel:[phone] [place] No Information 4 Higuera January. . Referring Provider: Aureliano Christianson [address], [place], [address]. tel:[phone] [place] [address], [place], [place], [id number], [place] tel:[phone] [place] No Information 4 Muehl Cam. [address] [facility], [address], [place], [facility] [place], . tel: [phone] Referring Provider: Aureliano Christians[address], [place], [address]. tel:[phone] [place] [address], [place], [place], [id number], tel:[phone] [place] No Information Oct-0 9-202 4 Muehl Cam. [address] [place] [address], [address], [place], [facility] [place], . tel: [phone] Referring Provider: Aureliano [facility] [facility] [address], [place], [address]. tel:[phone] [address], [place], [place], [id number], [place] tel:[phone] [place] No Information Oct-0 7-202 4 Akiko Fred. . Referring Provider: Aureliano Christianson [facility] [address], [place], [address]. tel:[phone] [address], [place], [place], [address], tel:[phone] [place] No Information Oct-0 2-202 4 Muehl Cam. [address] [place] [address], [address], [place], [facility] [place]. tel: [phone] Referring Provider: Aureliano Christianson [facility] [address], [place], [address]. tel:[phone] [address], [place], [place], [id number], tel:[phone] [place] No Information Sep-3 0-202 4 Muehl Cam. [address] [place] [address], [address], [place], [facility] [place], . tel: [phone] Referring Provider: A[address] [facility] [address], [place], [address]. tel:[phone] [address], [place], [place], [id number], tel:[phone] [place] No Information Sep-2 0-202 4 Muehl Cam. [address] [place] [address], [address], [place], [facility] [place]. tel: [phone] Referring Provider: Aureliano [address], [place], [address]. tel:[phone] [address], [place], [place], [address], tel:[phone] [place] No Information Sep-1 8 4 Muehl Cam. [address] [place] [address], [address], [place], [facility] [place], . tel: [phone] Referring Provider: Aureliano [address], [place], [address]. tel:[phone] [address], [place], [place], [address], tel:[phone] [place] No Information Sep-1 1 4 Muehl Cam. [address] [place] [address], [address], [facility] [place], . tel: [phone] Referring Provider: Aureliano [address], [place], [address]. tel:[phone] [address], [place], [place], [address], tel:[phone] [place] No Information Sep-0 9 4 Muehl Cam. [address] [place] [address], [address], [facility] [place], . tel: [phone] Referring Provider: Aureliano [address], [place], [address]. tel:[phone] [address], [place], [id number], tel:[phone] [place] No Information Sep-0 6202 4 Muehl Cam. [address] [place] [address], [address], [place], [facility] [place], . tel: [phone] Referring Provider: Aureliano [address], [place], [address]. tel:[phone] [facility] [address], [place], [place], [address], [place] tel:[phone] [place] No Information Dec-0 4 Delvis Patel. . Referring Provider: Aureliano [address], [place], [address]. tel:[phone] [facility] [address], [place], [place], [id number], [place] tel:[phone] [place] No Information 4 Janessa Kyle. . Referring Provider: Aureliano [address], [place], [address]. tel:[phone] [facility] [address], [place], [place], [address], [place] tel:[phone] [place] No Information 4 Janessa Kyle. . Referring Provider: Aureliano [address], [place], [address]. tel:[phone] [facility] [address], [place], [place], [address], [place] tel:[phone] [place] No Information 4 Muehl Cam. [address] [facility], [address], [place], [facility] [place], . tel: [phone] Referring Provider: Aureliano [address], [place], [address]. tel:[phone] [place] [address], [place], [address], [place] tel:[phone] [place] No Information 4 Muehl Cam. [address] [facility], [address], [facility] [place], . tel: [phone] Referring Provider: Aureliano [address], [place], [address]. tel:[phone] [address], [place], [place], [address], tel:[phone] [place] No Information 4 Muehl Cam. [address] [place] [address], [address], [facility] [place], . tel: [phone] Referring Provider: Aureliano [address], [place], [address]. tel:[phone] [address], [place], [place], [address], [place] tel:[phone] [place] No Information 4 Muehl Cam. [address] [place] [address], [address], [facility] [place], . tel: [phone] Referring Provider: Aureliano [address], [place], [address]. tel:[phone], [place], [place], [address], [place] tel:[phone] [place] No Information 4 Muehl Cam. [address] [place] [address], [address], [place], [facility] [place], . tel: [phone] Referring Provider: Aureliano [address], [place], [address]. tel:[phone] [address], [place], [place], [address], [place] tel:[phone] [place] No Information 4 Muehl Cam. [address] [place] [address], [address], [place], [facility] [place], . tel: [phone] Referring Provider: Aureliano [address], [place], [address]. tel:[phone] [facility], [address] [place], [place] [address], [place], [place], [address], [place] tel:[phone] [place] No Information 4 Janessa Kyle. . Referring Provider: Aureliano [address], [place], [address]. tel:[phone] [facility] [address] [facility], [place], [place], [address], [place] tel:[phone] [place] No Information 4 Janessa Kyle. . Referring Provider: Aureliano [address], [place], [address]. tel:[phone] [facility] [address] [facility] [facility], [place], [address], [place] tel:[phone] [place] No Information 4 Muehl Cam. [address] [place] [address], [address], [facility] [place], . tel: [phone] Referring Provider: Aureliano [address], [place], [address]. tel:[phone] [facility] [address] [facility], [place], [place], [address], [place] tel:[phone] [place] No Information 4 Muehl Cam. [address] [place] [address], [address], [place], [facility] [place], . tel: [phone] Referring Provider: Aureliano [address], [place], [address]. tel:[phone] [facility] [address] [facility], [place], [place], [address], [place] tel:[phone] [place] No Information 4 Muehl Cam. [address] [place] [address], [address], [place], [facility] [place], . tel: [phone] Referring Provider: Quentin [place], [address], [place], [address]. tel:[phone] [facility] [address] [facility], [place], [address], [place] tel:[phone] [place] No Information Brando-2 - 4 Muehl Cam. [address] [place] [address], [address], [place], [facility] [place], . tel: [phone] Referring Provider: Aureliano Miller, [place], [address]. tel:[phone] [facility] [address] [facility] [address], [place], [address], [place] tel:[phone] [place] No Information Sep-2 0- 4 Delvis Patel. . Referring Provider: Aureliano Miller, [place], [address]. tel:[phone] [facility] [address] [facility] [address], [place], [place], [address], [place] tel:[phone] [place] No Information Sep-1 4 Nichole Strange . Referring Provider: Aureliano Miller, [place], [address]. tel:[phone] [facility] [address], [id number], [place] tel:[phone] [place] No Information Sep-1 0-202 4 Muehl Cam. [address] [place] [address], [address], [place], [facility] [place]. tel: [phone] Referring Provider: Aureliano Miller, [place], [address]. tel:[phone] [facility] [facility], [place], [place], [address], [place] tel:[phone] [place] No Information Brando-0 5-202 4 Muehl Cam. [address] [place] [address], [address], [place], [facility] [place], . tel: [phone] Referring Provider: [place], [address]. tel:[phone] [facility] [address] [facility], [place], [address], tel:[phone] [place] No Information Brando-0 3- 4 Suzette Presley. [address] [place] [address], [address], [place], [facility] [place], . tel: [phone] Referring Provider: [place], [address]. tel:[phone] [facility] [address] [facility] [address], [place], [address], [place] tel:[phone] [place] No Information August-2 4 Delvis Kramer . Referring Provider: [place], [address]. tel:[phone] [facility] [address] [facility] [address], [place], [address], [place] tel:[phone] [place] No Information August-2 4 Mio Levy. [address] [place] [address], [address], [place], [facility] [place], . tel: [phone] Referring Provider: [place], [address]. tel:[phone] [facility] [address] [facility] [address], [place], [address], [place] tel:[phone] [place] No Information August-2 0- 4 Suzette Presley. [address] [place] [address], [address], [place], [facility] [place], . tel: [phone] Referring Provider: [place], [address]. tel:[phone] [facility] [facility] [address], [place], [place], [address], tel:[phone] [place] No Information 4 Nichole Gallegos. . Referring Provider: [place], [address]. tel:[phone] [facility] [facility] [address], [place], [place], [address], tel:[phone] [place] No Information 4 BergeronJoanna Hernandezla. [address] [place] [address], [address], [place], [facility] [place], . tel: [phone] Referring Provider: Aureliano Miller, [place], [address]. tel:[phone] Family History Family Member Type Diagnosis Age At Onset No Information Payers Payer name Insurance type Covered alliance party ID Jada santos(s) Pareshna [id number] Social History Type Description Quantity Date Captured [...]
--- OUTSIDE RECORDS SUMMARY | 2024-09-02 21:11 | XMS_ITS | Encounter Summary ---
Author Organization [facility] Address [address] [place] [address] Care Team Providers Care Imaging Analyst Name Role Phone Unavailable Primary Care Provider Unavailabl e Encounter Details Date Type Department Care Team (Late st Contact Info) Description 11/30/2004 Outpatient Historical [facility] Medicine [address] [place] [phone] Larry Patel, DO [address] [facility] [place] [phone] Social History Tobacco Use Types Packs/Day Years Used Date Smoking Tobacco: Never Assessed Sex and Gender Information Value Date Recorded Sex Assigned at Not on file Legal Sex Male 4:54 AM IMPREGNATOR Gender Identity Not on file Sexual Orientation Not on file documented as of this encounter Plan of Treatment Not on file documented as of this encounter Visit Diagnoses Not on filedocumented in this encounter
--- OUTSIDE RECORDS SUMMARY | 2024-09-02 21:11 | XMS_ITS | Clinical Summary ---
Author Organization [facility] Address [address] [facility] Attn: Epic Prelude ADT [place] [address] Care Team Providers Care Assurance Officer Name Role Phone Unavailable Primary Care Provider Unavailabl e Social History Tobacco Use Types Packs/Day Years Used Date Smoking Tobacco: Never Assessed Sex and Gender Information Value Date Recorded Sex Assigned at Not on file Legal Sex Male 4:54 AM VALET ATTENDANT Gender Identity Not on file Sexual Orientation [...]
--- OUTSIDE RECORDS SUMMARY | 2024-09-02 21:11 | XMS_ITS | Encounter Summary ---
Author Organization [facility] Address [address] [place] [address] Care Team Providers Care Patient Care Coordinator Name Role Phone Unavailable Primary Care Provider Unavailabl e Encounter Details Date Type Department Care Team (Late st Contact Info) Description 04/02/2005 Outpatient Historical [facility] Medicine [address] [place] [phone] Larry Patel, DO [address] [facility] [place] [phone] Social History Tobacco Use Types Packs/Day Years Used Date Smoking Tobacco: Never Assessed Sex and Gender Information Value Date Recorded Sex Assigned at Not on file Legal Sex Male 4:54 AM 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
--- OUTSIDE RECORDS SUMMARY | 2024-09-02 21:11 | XMS_ITS | Encounter Summary ---
Author Organization [facility] Address [address] [place] [address] Care Team Providers Care Boiler Blower Name Role Phone Unavailable Primary Care Provider Unavailabl e Encounter Details Date Type Department Care Team (Late st Contact Info) Description 02/27/2004 Outpatient Historical [facility] Medicine [address] [place] [phone] Larry Patel, DO [address] [facility] [place] [phone] Social History Tobacco Use Types Packs/Day Years Used Date Smoking Tobacco: Never Assessed Sex and Gender Information Value Date Recorded Sex Assigned at Not on file Legal Sex Male 4:54 AM 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
== END 2024-09-02 21:17 | disposition home or self-care (01) ==
LOC: ANHED 21:08
PROVIDERS: Emergency Provider Emergency Medicine; PCP Nurse Practitioner Family
DX: S06.0X0A Concussion without loss of consciousness, initial encounter (principal); W22.8XXA Striking against or struck by other objects, initial encounter; F41.8 Other specified anxiety disorders
CPT/HCPCS: 70450; 99284

== ENCOUNTER 2024-09-06 07:23 | Outpatient (NON) | payer OTHER, SELFPAY ==
--- OUTSIDE RECORDS SUMMARY | 2024-09-07 07:26 | XMS_ITS | Encounter Summary ---
Author Organization [facility] Address [address] [place] [address] Care Team Providers Care Aircraft Stress Analyst Name Role Phone Unavailable Primary Care Provider Unavailabl e Encounter Details Date Type Department Care Team (Late st Contact Info) Description 11/30/2004 Outpatient Historical [facility] Medicine [address] [place] [phone] Larry Patel, DO 1237 [facility] [place] [phone] Social History Tobacco Use Types Packs/Day Years Used Date Smoking Tobacco: Never Assessed Sex and Gender Information Value Date Recorded Sex Assigned at Not on file Legal Sex Male 4:54 AM SETTER UP Gender Identity Not on file Sexual Orientation Not on file documented as of this encounter Plan of Treatment Not on file documented as of this encounter Visit Diagnoses Not on filedocumented in this encounter
--- OUTSIDE RECORDS SUMMARY | 2024-09-07 07:26 | XMS_ITS | Encounter Summary ---
Author Organization [facility] Address 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
--- OUTSIDE RECORDS SUMMARY | 2024-09-07 07:27 | XMS_ITS | Clinical Summary ---
Author Organization [facility] Address [address] [facility] Attn: Epic Prelude ADT [place] [phone] Care Team Providers Care Zoology Technical Officer Name Role Phone Unavailable Primary Care Provider Unavailabl e Social History Tobacco Use Types Packs/Day Years Used Date Smoking Tobacco: Never Assessed Sex and Gender Information Value Date Recorded Sex Assigned at Not on file Legal Sex Male 4:54 AM IPHONE DEVELOPER Gender Identity Not on file Sexual Orientation [...]
--- OUTSIDE RECORDS SUMMARY | 2024-09-07 07:27 | XMS_ITS | Clinical Summary ---
Author Organization [facility] Address [address], [facility] [address] [place] [address] Phone Care Team Providers Care Supervisor Dried Yeast Name Role Phone Sherri Fisher APRN, FABIENNE Primary Care Provider Social History Tobacco Use Types Packs/Day Years Used Date Smoking Tobacco: Never Assessed Sex and Gender Information Value Date Recorded Sex Assigned at Not on file Legal Sex Male 10:11 AM NON PROFIT FINANCIAL CONTROLLER Gender Identity Not on file Sexual Orientation [...] Recently Relevant to Health Maintenance Care Teams Supervisor Dried Yeast Relationship Specialty Start Date End Date Sherri Fisher, HIDE BUFFER, ACCOUNT PLANNER [address] [place] [address] PCP - General Internal Medicine 05/27/20
--- OUTSIDE RECORDS SUMMARY | 2024-09-07 07:27 | XMS_ITS | Encounter Summary ---
Author Organization [facility] Address [address] [place] [address] Care Team Providers Care Group Chief Operator Name Role Phone Unavailable Primary Care Provider Unavailabl e Encounter Details Date Type Department Care Team (Late st Contact Info) Description 04/02/2005 Outpatient Historical [facility] Medicine [address] [place] [phone] Larry Patel, DO 1237 [facility] [place] [phone] Social History Tobacco Use Types Packs/Day Years Used Date Smoking Tobacco: Never Assessed Sex and Gender Information Value Date Recorded Sex Assigned at Not on file Legal Sex Male 4:54 AM HOME ECONOMIST Gender Identity Not on file Sexual Orientation Not on file documented as of this encounter Plan of Treatment Not on file documented as of this encounter Visit Diagnoses Not on filedocumented in this encounter
--- OUTSIDE RECORDS SUMMARY | 2024-09-07 07:27 | XMS_ITS | Encounter Summary ---
Author Organization [facility] Address [address] [place] [address] Care Team Providers Care Photographic Editor Name Role Phone Unavailable Primary Care Provider Unavailabl e Encounter Details Date Type Department Care Team (Late st Contact Info) Description 01/29/2004 Outpatient Historical [facility] Medicine [address] [place] [phone] Larry Patel, DO 1237 [facility] [place] [phone] Social History Tobacco Use Types Packs/Day Years Used Date Smoking Tobacco: Never Assessed Sex and Gender Information Value Date Recorded Sex Assigned at Not on file Legal Sex Male 4:54 AM COMPUTATIONAL GENETICIST Gender Identity Not on file Sexual Orientation Not on file documented as of this encounter Plan of Treatment Not on file documented as of this encounter Visit Diagnoses Not on filedocumented in this encounter
--- OUTSIDE RECORDS SUMMARY | 2024-09-07 07:27 | XMS_ITS | Encounter Summary ---
Author Organization [facility] Address [address] [place] [address] Care Team Providers Care Fuel Tank Sealer And Tester Name Role Phone Unavailable Primary Care Provider Unavailabl e Encounter Details Date Type Department Care Team (Late st Contact Info) Description 02/27/2004 Outpatient Historical [facility] Medicine [address] [place] [phone] Larry Patel, DO 1237 [facility] [place] [phone] Social History Tobacco Use Types Packs/Day Years Used Date Smoking Tobacco: Never Assessed Sex and Gender Information Value Date Recorded Sex Assigned at Not on file Legal Sex Male 4:54 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
--- OUTSIDE RECORDS SUMMARY | 2024-09-07 07:27 | XMS_ITS | Encounter Summary ---
Author Organization [facility] Address [address] [place] [address] Care Team Providers Care Warehouse Distribution Specialist Name Role Phone Unavailable Primary Care Provider Unavailabl e Encounter Details Date Type Department Care Team (Late st Contact Info) Description 10/14/2003 Outpatient Historical [facility] Medicine [address] [place] [phone] [place] Social History Tobacco Use Types Packs/Day Years Used Date Smoking Tobacco: Never Assessed Sex and Gender Information Value Date Recorded Sex Assigned at Not on file Legal Sex Male 4:54 AM CLOTH SPONGER Gender Identity Not on file Sexual Orientation Not on file documented as of this encounter Plan of Treatment Not on file documented as of this encounter Visit Diagnoses Not on filedocumented in this encounter
== END 2024-09-06 07:24 | disposition home or self-care (01) ==
PROVIDERS: PCP Nurse Practitioner Family; Visit Provider Plastic Surgery
DX: M72.0 Palmar fascial fibromatosis [Dupuytren] (principal)
CPT/HCPCS: 88304

== ENCOUNTER 2024-09-06 08:08 | Day surgery (SDC) | payer OTHER, SELFPAY ==
[2024-08-20 14:31] VITALS: BMI 30.7
--- NOTE | 2024-09-06 06:55 | WPDHPUPDATE1 ---
History and Physical Update Update Date/Time: 09/06/24 06:55 Patient seen and examined in pre-operative holding area. No interval change in medical history or symptoms. Patient recalls previous discussion of benefits and alternatives to procedure. Continues to desire to proceed with right small and ring finger fasciectomy and bilateral first cmc joint steroid injection. Reviewed procedure, post-op expectations and risks including but not limited to bleeding, infection, injury to tendon/nerve/vessel, decreased hand function, stiffness, RSD, no change or worsening of symptoms, recurrence, incomplete release, thinning of skin, change in pigmentation. I discussed the possible use of assistants and their participation in the case. Patient stated understanding and signed the consent form wishing to proceed.
--- NOTE | 2024-09-06 06:56 | P.OP_ITS ---
Procedure Note - Detailed Date of Procedure 09/06/24 Pre-op Diagnosis Dupuytren's Contracture RT Small and Ring Finger and bilateral basal joint arthritis Post-op Diagnosis Same Procedure Performed right small and ring finger fasciectomy and bilateral first cmc joint steroid injection Surgeon Maximo Parkinson MD Form Tamping Machine Operator izzy gudino pa-c Anesthesia MAC Description of Procedure INFORMED CONSENT: The patient was seen and examined and marked in the pre-op area. The patient signed the consent form. PROCEDURE IN DETAIL:The patient taken back to OR on the stretcher in supine position. Time out performed with anesthesia, surgeon and staff agreeing on patient's name site and surgery to be performed SCDs were placed on the lower extremities and inflated. A tourniquet was placed on {right} upper extremity and antibiotics given IV After anesthesia administered sedation I injected {8}cc 1%lido and 0.5% marcaine plain for local The {right upper extremity} was prepped and draped in sterile fashion the {right upper extremity} was exsanguinated with Esmarch bandage and tourni quet inflated to 250mmHg I proceeded with making a longitudinal incision over the central cord of the small finger starting in the palm and going to the proximal interphalangeal joint. The incision was made obliquely across volar flexion creases through skin and dermis with a 15 blade scalpel. Littler scissor and 15 blade was used to elevate the skin flaps and expose the cord near its origin in the palm proximally. I proceeded with circumferential dissection of this cord and then transected it. I proceeded with anterograde dissection of the cord until I was able to achieve full extension of the MP and PIP joint. Next I took my attention to the ring finger where I proceeded with making a longitudinal incision over this cord as well as going around the palmar it through skin and dermis with a 15 blade scalpel. Littler scissors were used to elevate skin flaps. I proceeded with dissecting around the cord proximally and then transected it and proceeded with anterograde dissection until I was able to achieve full extension of the MP and PIP joint. I irrigated with normal saline. The incisions were closed with 4-0 chromic. Next I injected 0.3cc 1%lidocaine plain and 0.7cc Betamethasone 6mg/ml injected into bilateral first cmc joints under sterild conditions. A dressing of xeroform, 4x4, jordi, and an ulnar gutter splint with fingers straight was applie and secured with an bradley bandage after the tourniquet was let down noting the hand was warm and well perfused. The patient was then awaken from anesthesia and transferred to the recovery room in stable condition. Complications - none EBL- 0cc Disposition - home in stable condition izzy gudino pa-c was essential for positioning, retraction, closure and dressing placement [facility] Billing Surgery - Charge Forward: Surgery Billing ([id number] - F5,59 ([id number] and [id number] for izzy))
--- OUTSIDE RECORDS SUMMARY | 2024-09-06 09:06 | XMS_ITS | Encounter Summary ---
Author Organization [facility] Address [address] [place] [address] Care Team Providers Care Network Program Manager Name Role Phone Unavailable Primary Care Provider Unavailabl e Encounter Details Date Type Department Care Team (Late st Contact Info) Description 02/27/2004 Outpatient Historical [facility] Medicine [address] [place] [phone] Larry Patel, DO 1237 [facility] [place] [phone] Social History Tobacco Use Types Packs/Day Years Used Date Smoking Tobacco: Never Assessed Sex and Gender Information Value Date Recorded Sex Assigned at Not on file Legal Sex Male 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
--- OUTSIDE RECORDS SUMMARY | 2024-09-06 09:06 | XMS_ITS | Encounter Summary ---
Author Organization [facility] Address 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
--- OUTSIDE RECORDS SUMMARY | 2024-09-06 09:06 | XMS_ITS | Encounter Summary ---
Author Organization [facility] Address [address] [place] [address] Care Team Providers Care Centura Technical Lead Senior Developer Name Role Phone Unavailable Primary Care Provider Unavailabl e Encounter Details Date Type Department Care Team (Late st Contact Info) Description 04/02/2005 Outpatient Historical [facility] [address] [place] [phone] Larry Patel, DO 1237 [facility] [place] [phone] Social History Tobacco Use Types Packs/Day Years Used Date Smoking Tobacco: Never Assessed Sex and Gender Information Value Date Recorded Sex Assigned at Not on file Legal 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
--- OUTSIDE RECORDS SUMMARY | 2024-09-06 09:06 | XMS_ITS | Encounter Summary ---
Author Organization [facility] Address [address] [place] [address] Care Team Providers Care Nursing Home Admissions Director Name Role Phone Unavailable Primary Care Provider Unavailabl e Encounter Details Date Type Department Care Team (Late st Contact Info) Description 01/29/2004 Outpatient Historical [facility] Medicine [address] [place] [phone] Larry Patel, DO [address] 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
--- OUTSIDE RECORDS SUMMARY | 2024-09-06 09:06 | XMS_ITS | Clinical Summary ---
Author Organization [facility] Address [address], [facility] [address] [place] [address] Phone Care Team Providers Care Tier And Detonator Name Role Phone Sherri Fisher APRN, AUTOMOTIVE TECHNICIAN INSTRUCTOR Primary Care Provider Social History Tobacco Use Types Packs/Day Years Used Date Smoking Tobacco: Never Assessed Sex and Gender Information Value Date Recorded Sex Assigned at Not on file Legal Sex Male 10:11 AM FEATHER RENOVATOR Gender Identity Not on file Sexual Orientation [...] Immunization (#1) 2023 SARS-COV-2 Immunization ( - season) 2023 Colonoscopy 07/07/2030 07/07/2020 Colorectal Cancer [...] Recently Relevant to Health Maintenance Care Teams Tier And Detonator Relationship Specialty Start Date End Date Sherri Fisher, BATCH MIXER, AUTOMOTIVE TECHNICIAN INSTRUCTOR [address] [place] [id number] PCP - General Internal Medicine 05/27/20
--- OUTSIDE RECORDS SUMMARY | 2024-09-06 09:06 | XMS_ITS | Encounter Summary ---
Author Organization [facility] Address [address] [place] [address] Care Team Providers Care Mechanical Supervisor Name Role Phone Unavailable Primary Care Provider Unavailabl e Encounter Details Date Type Department Care Team (Late st Contact Info) Description 07/02/2004 Outpatient Historical [facility] Medicine [address] [place] [phone] Larry Patel, DO 1237 [facility] [place] [phone] Social History Tobacco Use Types Packs/Day Years Used Date Smoking Tobacco: Never Assessed Sex and Gender Information Value Date Recorded Sex Assigned at Not on file Legal Sex Male 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
--- OUTSIDE RECORDS SUMMARY | 2024-09-06 09:06 | XMS_ITS | Encounter Summary ---
Author Organization [facility] Address [address] [place] [address] Care Team Providers Care Shower Attendant Name Role Phone Unavailable Primary Care Provider Unavailabl e Encounter Details Date Type Department Care Team (Late st Contact Info) Description 11/30/2004 Outpatient Historical [facility] Medicine [address] [place] [phone] Larry Patel, DO 1237 [facility] [place] [phone] Social History Tobacco Use Types Packs/Day Years Used Date Smoking Tobacco: Never Assessed Sex and Gender Information Value Date Recorded Sex Assigned at Not on file Legal Sex Male 4:54 AM APPLICATION SUPPORT ENGINEER Gender Identity Not on file Sexual Orientation Not on file documented as of this encounter Plan of Treatment Not on file documented as of this encounter Visit Diagnoses Not on filedocumented in this encounter
--- OUTSIDE RECORDS SUMMARY | 2024-09-06 09:06 | XMS_ITS | Clinical Summary ---
Author Organization [facility] Address [address] [facility] Attn: Epic Prelude ADT [place] [address] Care Team Providers Care Dye House Wheel Operator Name Role Phone Unavailable Primary Care Provider Unavailabl e Social History Tobacco Use Types Packs/Day Years Used Date Smoking Tobacco: Never Assessed Sex and Gender Information Value Date Recorded Sex Assigned at Not on file Legal Sex Male 4:54 AM [employer] OFFICER Gender Identity Not on file Sexual [...]
[2024-09-06 09:15] VITALS: BP 131/97; PULSE 56; RESP 18; TEMP 36.5; O2SAT 98; BMI 29.2
[2024-09-06] MEDS: LACTATED RINGERS 1,000 ML 30 ML IV CONT ×2 (09:30→11:14)
--- NOTE | 2024-09-06 09:45 | WPDANESEPPF ---
Anes - Initial Pre Proc Eval Procedure: Operation Date: 09/06/24 10:30 Proposed Procedures p Fasciectomy Right Small and Ring Finger - Maximo Parkinson MD s Bilateral First Carpometacarpal Steroid Injection - Maximo Parkinson MD Date/Time: 09/06/24 09:45 Surgeon: Maximo Parkinson MD Pre Op Diagnosis: Dupuytren's Contracture RT Small and Ring Finger Patient Data Age: 54 Gender: M Height: 1.98 m Weight: 114.9 kg Last Vital Signs Temp 36.5 C 09/06/24 09:15 Pulse 56 L 09/06/24 09:15 Resp 18 09/06/24 09:15 BP 131/97 H 09/06/24 09:15 Pulse Ox 98 09/06/24 09:15 O2 Del Method Room Air 09/06/24 09:15 Allergies Allergy/AdvReac Type Severity Reaction Status Date / Time No Known Allergies Allergy Mild Verified 09/06/24 09:06 Home Medications Medication Instructions Recorded Confirmed Type bupropion HCl 150 mg tablet,12 hr 150 mg PO Q12H 06/20/20 09/06/24 History sustained-release famotidine 20 mg tablet (Pepcid) 20 mg PO DAILY 06/20/20 09/06/24 History lactobacillus combination no.8 3 3,000 mmu cells PO DAILY 06/20/20 09/06/24 History billion cell capsule (Adult Probiotic) diclofenac potassium 50 mg tablet 50 mg PO TID 08/20/24 09/06/24 History losartan 50 mg tablet 50 mg PO DAILY 08/20/24 09/06/24 History tramadol 50 mg tablet 50 mg PO Q6H PRN pain #12 tabs 09/06/24 Rx Patient hx anesthesia problems: none Family hx anesthesia problems: none Results Review: All pre-operative results and documents have been reviewed as part of the pre-operative evaluation. [facility] Past Medical History Medical History Depression Anxiety Social History Social History Smoking packs per day: 1.5 Smoking cigarettes per day: 30.0 Years smoked: 20 Smoking pack-years: 30.00 Smoking status: Former smoker Tobacco type: cigarettes Second hand tobacco smoke exposure: Yes Smoking end date: 04/18/04 Alcohol intake: current Drinks per week: 8 Substance use: current Substance use type: marijuana Other substance usage details: Gummies for sleep Living arrangements: with family Spiritual care concerns: No Anes - Eval Final PreProcedure Day of Procedure 09/06/24 09:45 Patient weight: overweight Heart: regular rate and rhythm Lungs: clear to auscultation Airway: Mallampati scale class II Neurological: alert and oriented Last oral intake: >/= 8 hours ASA classification: II Emergent: no Anesthetic plan: proceed Anesthesia type and monitoring: general GIVS and standard monitoring Results Review: All pre-operative results and documents have been reviewed as part of the pre-operative evaluation. Informed Consent: The patient's anesthetic plan and its attendant risks and benefits were discussed with the patient/family/POA. Questions were solicited and answers provided to the satisfaction of the patient/family/POA.
[2024-09-06] MEDS: ceFAZolin SODIUM 2 GM/20 ML SW SYRINGE IV PUSH (10:20)
[2024-09-06] MEDS: BETAMETHASONE SODIUM PHOSPHATE PF INJ 6 MG/ML VIAL 8.4 MG INFILTRATE (10:24)
[2024-09-06] MEDS: BUPivacaine HCL 0.5% PF 30 ML VIAL 5 ML INFILTRATE (10:24)
[2024-09-06] MEDS: LIDOCAINE 1% LOCAL INJ 20 ML VIAL 5.6 ML INFILTRATE (10:24)
[2024-09-06 11:00] VITALS: BP 120/80; PULSE 59; RESP 15; O2SAT 97
[2024-09-06 11:15] VITALS: BP 122/84; PULSE 62; RESP 15; O2SAT 97
[2024-09-06] MEDS: oxyCODONE HCL (*CRX) 5 MG TAB IR PO (11:27)
[2024-09-06 11:40] VITALS: BP 128/87; PULSE 58; RESP 15; O2SAT 99
--- NOTE | 2024-09-06 11:45 | WPDANESPN ---
Anes - Prog Note Post-Op Date/Time: 09/06/24 11:45 Cardiovascular status: normal Respiratory status: normal Airway patency: baseline Mental status: baseline Post-Op hydration status: normal Vital Signs: Last Vital Signs Temp 36.5 C 09/06/24 09:15 Pulse 62 09/06/24 11:15 Resp 15 09/06/24 11:15 BP 122/84 09/06/24 11:15 Pulse Ox 97 09/06/24 11:15 O2 Del Method Room Air 09/06/24 11:15 Pain Score (VAS): 0/10 Patient Feedback: Patient satisfied with anesthetic care.
== END 2024-09-06 11:50 | disposition home or self-care (01) ==
LOC: ASC 09:00
PROVIDERS: PCP Nurse Practitioner Family; Visit Provider Plastic Surgery
PROC: (CPT 26045; principal; 2024-09-06 10:30)
PROC: 3E0233Z Introduction of Anti-inflammatory into Muscle, Percutaneous Approach (ICD-10-PCS; CPT 26123; 2024-09-06 10:30)
DX: M72.0 Palmar fascial fibromatosis [Dupuytren] (principal); M18.0 Bilateral primary osteoarthritis of first carpometacarpal joints
CPT/HCPCS: 26123; 26125; 20600 ×2

== ENCOUNTER 2024-12-18 10:17 | Outpatient (CLI) | payer OTHER, SELFPAY ==
--- NOTE | 2024-12-18 10:40 | NEURO_ITS ---
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 ? # Mild Carpal Tunnel Syndrome, bilaterally. ? # Bilateral Ulnar Neuropathy across the elbows. ? # Normal Needle/ EMG exam. Nerve Conduction Studies ?Stim Site NR Peak (ms) P-T Amp (?V) Site1 Site2 Delta-P (ms) Dist (cm) Chalino (m/s) Left Median Anti Sensory (2-3nd Digit) Wrist ? 4.3 12.8 Wrist 2-3nd Digit 4.3 14.0 33 Wrist ? 4.1 14.6 Wrist 2-3nd Digit 4.3 14.0 33 Right Median Anti Sensory (2-3nd Digit) Wrist ? 3.8 11.1 Wrist 2-3nd Digit 3.8 14.0 37 Wrist ? 3.8 9.6 Wrist 2-3nd Digit 3.8 14.0 37 Left Radial Anti Sensory (Base 1st Digit) Wrist ? 1.9 13.4 Wrist Base 1st Digit 1.9 0.0 Right Radial Anti Sensory (Base 1st Digit) Wrist ? 2.3 13.1 Wrist Base 1st Digit 2.3 0.0 Left Ulnar Anti Sensory (5th Digit) Wrist ? 3.2 8.1 Wrist 5th Digit 3.2 14.0 44 Right Ulnar Anti Sensory (5th Digit) Wrist ? 2.5 6.8 Wrist 5th Digit 2.5 14.0 56 ?Stim Site NR Onset (ms) O-P Amp (mV) Site1 Site2 Delta-0 (ms) Dist (cm) Chalino (m/s) Left Median Motor (Abd Poll Brev) Wrist ? 3.4 5.9 Elbow Wrist 6.4 26.0 41 Elbow ? 9.8 1.0 Right Median Motor (Abd Poll Brev) Wrist ? 3.8 4.5 Elbow Wrist 6.4 26.0 41 Elbow ? 10.2 3.0 Left Ulnar Motor (Abd Dig Minimi) Wrist ? 3.3 5.8 A Elbow Wrist 6.5 34.0 52 A Elbow ? 9.8 4.4 B Elbow Wrist 4.1 26.0 63 B Elbow ? 7.4 1.7 Right Ulnar Motor (Abd Dig Minimi) Wrist ? 2.8 7.2 A Elbow Wrist 7.1 36.0 51 A Elbow ? 9.9 6.0 B Elbow Wrist 5.2 26.0 50 B Elbow ? 8.0 5.2 F Wave Studies ?NR F-Lat (ms) L-R F-Lat (ms) Left Median (Mrkrs) (Abd Poll Brev) ? 33.76 1.35 Right Median (Mrkrs) (Abd Poll Brev) ? 35.11 1.35 Left Ulnar (Mrkrs) (Abd Dig Min) ? 38.31 1.35 Right Ulnar (Mrkrs) (Abd Dig Min) ? 36.96 1.35 Electromyography ?Side Muscle Nerve Root Ins Act Fibs Amp Dur Recrt Comment Right 1stDorInt Ulnar C8-T1 Nml Nml Nml Nml Nml Right Ext Indicis Radial (Post Int) C7-8 Nml Nml Nml Nml Nml Right Ext Digitorum Radial (Post Int) C7-8 Nml Nml Nml Nml Nml Right BrachioRad Radial C5-6 Nml Nml Nml Nml Nml Right PronatorTeres Median C6-7 Nml Nml Nml Nml Nml Right Abd Poll Brev Median C8-T1 Nml Nml Nml Nml Nml Right ABD Dig Min Ulnar C8-T1 Nml Nml Nml Nml Nml Right FlexPolLong Median (Ant Int) C7-8 Nml Nml Nml Nml Nml Right Abd Poll Long Radial (Post Int) C7-8 Nml Nml Nml Nml Nml Left 1stDorInt Ulnar C8-T1 Nml Nml Nml Nml Nml Left Ext Indicis Radial (Post Int) C7-8 Nml Nml Nml Nml Nml Left Ext Digitorum Radial (Post Int) C7-8 Nml Nml Nml Nml Nml Left BrachioRad Radial C5-6 Nml Nml Nml Nml Nml Left PronatorTeres Median C6-7 Nml Nml Nml Nml Nml Left Abd Poll Brev Median C8-T1 Nml Nml Nml Nml Nml Left ABD Dig Min Ulnar C8-T1 Nml Nml Nml Nml Nml Left FlexPolLong Median (Ant Int) C7-8 Nml Nml Nml Nml Nml Left Abd Poll Long Radial (Post Int) C7-8 Nml Nml Nml Nml Nml
--- OUTSIDE RECORDS SUMMARY | 2024-12-18 10:44 | XMS_ITS | Encounter Summary ---
Author Organization [facility] Address 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
--- OUTSIDE RECORDS SUMMARY | 2024-12-18 10:44 | XMS_ITS | Encounter Summary ---
Author Organization [facility] Address [address] [place] [address] Care Team Providers Care Legal Transcriptionist Name Role Phone Unavailable Primary Care Provider Unavailabl e Encounter Details Date Type Department Care Team (Late st Contact Info) Description 07/02/2004 Outpatient Historical [facility] Medicine [address] [place] [phone] Larry Patel, DO [address] [facility] [place] [phone] Social History Tobacco Use Types Packs/Day Years Used Date Smoking Tobacco: Never Assessed Sex and Gender Information Value Date Recorded Sex Assigned at Not on file 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
--- OUTSIDE RECORDS SUMMARY | 2024-12-18 10:44 | XMS_ITS | Encounter Summary ---
Author Organization [facility] Address 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
--- OUTSIDE RECORDS SUMMARY | 2024-12-18 10:44 | XMS_ITS | Clinical Summary ---
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 Gender Identity Not on file Sexual Orientation Not on file Plan of Treatment Health Maintenance Due Date Last Done Comments Hepatitis C Virus (HCV) Screening 1969 TdaP Immunization 1969 Hepatitis B Immunization (1 of 3 - 19+ 3-dose series) 1988 Cologuard 2014 Immunochemical Fecal Occult Blood 2014 Pneumococcal Immunization (5 0+ years) (1 of 1 - PCV) 2019 Zoster Immunization (1 of 2) 2019 SARS-COV-2 Immunization (1 - 2023-25 season) 2023 Influenza Immunization (#1) 2024 Colonoscopy 07/07/2030 07/07/2020 Colorectal Cancer Screening 07/07/2030 Respiratory Syncytial Virus (RSV) Immunization (Adult) (1 - 1-dose 75+ series) 2044 Human Papillomavirus (HPV) Immunization Aged Out No longer eligible b ased on patient's age to complete this topic Meningococcal Immunization (ACWY) Aged Out No longer [...] Recently Relevant to Health Maintenance Care Teams Hardscape Foreman Relationship Specialty Start Date End Date Sherri Fisher, TEACHER AIDE CLERICAL, FOCUSED FACTORY MANAGER [address] [place] [id number] PCP - General Internal Medicine 05/27/20
--- OUTSIDE RECORDS SUMMARY | 2024-12-18 10:44 | XMS_ITS | Clinical Summary ---
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
--- OUTSIDE RECORDS SUMMARY | 2024-12-18 10:44 | XMS_ITS | Encounter Summary ---
Author Organization [facility] Address 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
--- OUTSIDE RECORDS SUMMARY | 2024-12-18 10:44 | XMS_ITS | Encounter Summary ---
Author Organization [facility] Address 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
--- OUTSIDE RECORDS SUMMARY | 2024-12-18 10:44 | XMS_ITS | Encounter Summary ---
Author Organization [facility] Address [address] [place] [address] Care Team Providers Care Forest Fire Prevention Manager Name Role Phone Unavailable Primary Care Provider Unavailabl e Encounter Details Date Type Department Care Team (Late st Contact Info) Description 11/30/2004 Outpatient Historical [facility] Medicine [address] [place] [phone] Larry Patel, DO [address] [facility] [place] [phone] Social History Tobacco Use Types Packs/Day Years Used Date Smoking Tobacco: Never Assessed Sex and Gender Information Value Date Recorded Sex Assigned at Not on file Legal 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
== END 2024-12-18 10:18 | disposition home or self-care (01) ==
PROVIDERS: PCP Nurse Practitioner Family; Visit Provider Physician Assistant Surgical
DX: G56.03 Carpal tunnel syndrome, bilateral upper limbs (principal); G56.23 Lesion of ulnar nerve, bilateral upper limbs
CPT/HCPCS: 95886; 95911

== ENCOUNTER 2025-01-08 11:32 | Outpatient (CLI) | payer OTHER, SELFPAY ==
--- NOTE | 2025-01-08 11:36 | ECG_ITS ---
Test Date: 2025-01-08 11:47:01 Measurements Intervals [place] Rate: 48 P: 42 RI: 162 QRS: 59 QRSD: 116 T: 38 QT: 424 QTc: 380 Interpretive Statements SINUS BRADYCARDIA WITH SINUS ARRHYTHMIA BORDERLINE ECG No previous ECG available for comparison Electronically Signed On 01-08-2025 12:38:00 CDT by Roni Dowell M.D.
--- OUTSIDE RECORDS SUMMARY | 2025-01-08 12:15 | XMS_ITS | Encounter Summary ---
Author Organization [facility] Address [address] [place] [address] Care Team Providers Care Personal Banking Assistant Name Role Phone Unavailable Primary Care Provider Unavailabl e Encounter Details Date Type Department Care Team (Late st Contact Info) Description 11/30/2004 Outpatient Historical [facility] Medicine [address] [place] [phone] Larry Patel, DO [address] [facility] [place] [phone] Social History Tobacco Use Types Packs/Day Years Used Date Smoking Tobacco: Never Assessed Sex and Gender Information Value Date Recorded Sex Assigned at Not on file 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
--- OUTSIDE RECORDS SUMMARY | 2025-01-08 12:15 | XMS_ITS | Encounter Summary ---
Author Organization [facility] Address [facility] [place] [address] Care Team Providers Care Blood Bank Custodian Name Role Phone Sherri Fisher JYOTSNA Primary Care Provider [phone] Encounter Details Date Type Department Care Team (Late st Contact Info) Description 07/09/2023 Giv.tot Message Enc [facility] [place] [address] [place] [address] Raul Torres MD [address] [place] [address] Left leg pain Social History Tobacco Use [...] Sex Assigned at Male 06/06/2024 2:33 PM CITY ENGINEER Legal Sex Male 4:17 PM CDT Gender Identity Male 06/01/2021 4:37 AM CITY ENGINEER Sexual Orientation Straight 06/01/2021 4: 37 AM CITY ENGINEER documented as of this encounter Functional Status * Over the past 2 weeks, how often have you been bothered by any of the following problems? Question Answer Date of Assessment Author Status Little interest or pleasure in doing things Several days 07/12/2023 12:13 PM CDT Sherri Fisher, DIPLOMATIC INTERPRETER/TRANSLATOR Acti ve Feeling down, depressed, or hopeless Not at all 07/12/2023 12:13 PM CDT Sherri Fisher, F FAMILY SERVICES MANAGER Active Patient Health Questionnaire-2 Score 1 07/12/2023 12:13 PM CDT Sherri Fisher FN P Active * Question Answer Date of Assessment Author Status Trouble falling or staying asleep, or sleeping too much Several days 07/12/2023 12:13 PM CDT Sherri Fisher, DIPLOMATIC INTERPRETER/TRANSLATOR Active Feeling tired or having little energy Several days 07/12/2023 12:13 PM CDT Eliud Fisheranda, DIPLOMATIC INTERPRETER/TRANSLATOR Active Poor appetite or overeating Not at all 07/12/2023 12:13 PM CDT Sherri Fisher, DIPLOMATIC INTERPRETER/TRANSLATOR Active Feeling bad about yourself - or that you are a failure or have let yourself or your family down Several days 07/12/2023 12:13 PM CDT Eliud Fisheranda, DIPLOMATIC INTERPRETER/TRANSLATOR Active Trouble concentrating on things, such as reading the newspaper or watching television Several days 07/12/2023 12:13 PM CDT Eliud Fisheranda, DIPLOMATIC INTERPRETER/TRANSLATOR Active Moving or speaking so slowly that other people could have noticed? Or the opposite - being so fidgety or restless that you have been moving around a lot more than usual. Not at all 07/12/2023 12:13 PM CDT Sherri Fisher, DIPLOMATIC INTERPRETER/TRANSLATOR Active Thoughts that you would be better off or hurting yourself in some way Not at all 07/12/2023 12:13 PM CDT Sherri Fisher, DIPLOMATIC INTERPRETER/TRANSLATOR Active Patient Health Questionnaire-9 Score 5 07/12/2023 12:13 PM CDT Sherri Fisher, DIPLOMATIC INTERPRETER/TRANSLATOR Active * If you checked off any [...] Care Team (Late st Contact Info) Description 04/05/2025 9:00 AM CITY ENGINEER Office Visit [facility] [place] [address] [place] [address] Raul Torres MD [address] [place] [address] documented as of this encounter Visit Diagnoses Not on filedocumented in this encounter Additional Health Concerns Assessment Noted Time PHQ-9 Depression Total Score: 2 10/03/19 21 11:46 AM CDT documented as of this encounter Care Teams Blood Bank Custodian Relationship Specialty Start Date End Date Sherri Fisher FNP [address] [place] [phone] PCP - General Nurse Practitioner Family 12/20/18 documented as of this encounter
--- OUTSIDE RECORDS SUMMARY | 2025-01-08 12:15 | XMS_ITS | Encounter Summary ---
Author Organization [facility] Address [address] [place] [address] Care Team Providers Care Toll Test Desk Worker Name Role Phone Unavailable Primary Care Provider Unavailabl e Encounter Details Date Type Department Care Team (Late st Contact Info) Description 07/02/2004 Outpatient Historical [facility] Medicine [address] [place] [phone] Larry Patel, DO 1237 [facility] [place] [phone] Social History Tobacco Use Types Packs/Day Years Used Date Smoking Tobacco: Never Assessed Sex and Gender Information Value Date Recorded Sex Assigned at Not on file Legal Sex Male 4:54 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
--- OUTSIDE RECORDS SUMMARY | 2025-01-08 12:15 | XMS_ITS | Clinical Summary ---
Author Organization [facility] Address [address] [place] [address] Care Team Providers Care Barrel Assembler Helper Name Role Phone Sherri Fisher JYOTSNA Primary Care Provider [phone] Allergies No known active allergies Medications lansoprazole [...] 55 MCG/ACT nasal inhaler 06/05/19 25 Active diclofenac potassium (CATAFLAM) 50 MG tabletIndications: Arthralgia of both hands,Primary osteoarthritis of both knees Take 1 tablet (50 mg total) by mouth 3 (three) times daily. Short supply while waiting on mailorder 270 tablet 3 07/14/19 25 Active losartan (COZAAR) 50 MG tablet TAKE 1 TABLET DAILY 90 tablet 1 09/13/19 25 Active traMADol (ULTRAM) 50 MG tablet Take 1 tablet (50 mg total) by mouth every 6 (six) hours as needed. 09/07/19 25 Active amoxicillin (AMOXIL) 500 MG tablet Take 1 tablet (500 mg total) by mouth. 11/22/19 25 Active predniSONE (DELTASONE) 10 mg tabletIndications: Arthralgia of both hands 4 tabs x 3d, 3 tabs x3d, 2 tabs x3d, 1 tab x3d 30 tablet 11/28/19 25 Active Active Problems Problem Noted Date Diagnosed Date Low testosterone 07/13/2024 Hyperglycemia 12/08/2023 Primary hypertension 12/08/2023 Right ventricular enlargement 12/08/2023 Snoring 12/08/2023 Status post total left knee replacement 10/13/19 24 Hemorrhoids, unspecified hemorrhoid type 023 Muscle cramp 07/26/2022 Localized osteoarthritis of left knee 04/02/2022 [...] extremity 12/29/2023 07/13/2024 Influenza A 04/20/2023 12/06/2023 Urinary urgency 07/26/2022 11/27/2024 COVID-19 virus infection 03/09/2021 Insomnia due to medical condition 03/09/2021 11/16/2021 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 11/16/2021 Muscle spasm 10/02/2020 07/26/2022 Recent travel on aircraft 10/02/2020 Need for diphtheria-tetanus- pertussis (Tdap) vaccine 10/02/2020 10/06/2020 Heart palpitations 05/19/2020 1 Pounding heartbeat 05/19/2020 2 Numbness and tingling in left arm 01/10/2019 06/25/2022 Encounter to establish care 01/10/2019 12/28/2019 Encounters Date Type Department Care Team Description 12/18/2024 Scan opendorse INFO SRVCS Scanned, Doc [facility] EMG (SCAN) 12/03/2024 MyChart Message Enc [facility] Family & Internal Medicine [address] [address] Sherri Fisher FNP Tetanus shot 11/30/2024 10:00 AM CDT Office Visit [facility] Orthopedic & Sports Medicine [facility] [address] [place] [address] Raul Torres MD Follow Up (Bilateral ankle ) 11/30/2024 Travel 11/28/2024 Orders Only [facility] Orthopedic & Sports Medicine [facility] [address] [place] [address] Raul Torres MD 11/27/2024 10:20 AM CDT Office Visit [facility] Family [facility] Internal Medicine [address] [address] Sherri Fisher FNP Hand Pain (Patient presenting to the office today c/o B/L hand pain has been going for awhile but recently going into the wrist - throbbing uses ice and Voltaren to help with the pain ) 11/27/2024 Travel 11/16/2024 MyChart Message Enc [facility] Family & Internal Medicine [address] [address] Kilzer, Sherri, SYSTEMS TRAINER Sinus infection/ Covid 11/15/2024 Scan [facility] INFO SRVCS Scanned, Doc [facility] 11/14/2024 MyChart Message Enc [facility] Medical Group Orthopedic & Sports Medicine - [place] [address] [place] [address] Raul Torres MD Knee/ankle issues 10/08/2024 Scan [facility] INFO SRVCS Scanned, Doc [facility] from Last 3 Months Immunizations Immunization Administration Dates Next Due Fluzone 6 Months+ Quad (0.5 mL Prefilled Syringe ) 03/30/2021,05/15/2020 Influenza Adult (Generic) 03/26/2022 Pneumococcal (Prevnar 20) 11/27/2024 Shingrix 06/26/2022,03/26/2022 Tdap (Adacel) 10/02/2020 Family History [...] Given: Yes Comments:no longer smoker//vapes, Provider to [employer] Alcohol Use Standard Drinks/Week Comments Yes 7.7 (1 standard drink = 0.6 oz p ure alcohol) 2 x week AUDIT-C Answer Date Recorded Frequency of Alcohol Consumption Not on file 06/02/2020 Q2: How many drinks containi ng alcohol do you have on a typical day when you are drinking? 1 or 2 06/02/2020 Frequency of Binge Drinking Not on file 05/19 PHQ-2 Answer Date Recorded Patient Health Questionnaire-2 Score 0 09/27/2024 Sex and Gender Information Value Date Recorded Sex Assigned at Male 06/06/2024 2:33 PM COMMUNICATION ASSISTANT Legal Sex Male 4:17 PM CDT Gender Identity Male 06/01/2021 4:37 AM COMMUNICATION ASSISTANT Sexual Orientation Straight 06/01/2021 4: 37 AM COMMUNICATION ASSISTANT Last Filed Vital Signs Vital Sign Reading Time Taken Comments Blood Pressure 114/82 11/30/2024 10:15 AM CDT Pulse 56 11/30/2024 10:15 AM CDT Temperature 36.6 C (97.9 F) 11/27/2024 10:32 AM CDT Respiratory Rate 16 11/27/2024 10:32 AM CDT Oxygen Saturation 98% 11/27/2024 10:32 AM CDT Inhaled Oxygen Concentration - - Weight 117.5 kg (259 lb) 11/30/2024 10:15 AM CDT Height 198.1 cm (6' 6) 11/30/2024 10:15 AM CDT Body Mass Index 29.93 11/30/2024 10:15 AM CDT Plan of Treatment Upcoming Encounters Date Type Department Care Team (Late st Contact Info) Description 04/05/2025 9:00 AM COMMUNICATION ASSISTANT Office Visit [facility] Medical Group Orthopedic & Sports Medicine - [place] [address] [place], [place] [phone] Raul Torres MD [address] [place] [address] Health Maintenance Due Date Last Done Comments Hepatitis B Vaccines (1 of 3 - 19+ 3-dose series) 1988 COVID-19 Vaccine (3 - 2024-2 6 season) 2024 07/06/2020, 06/15/2020 Annual Physical 07/13/2025 07/13/2024, 07/26/2022, 03/30/2021 Colorectal Cancer Screening Colonoscopy (10 Years) 07/07/2030 07/07/2020 DTaP, Tdap and Td Vaccines ( 2 - Td or Tdap) 10/02/2030 10/02/2020 Hepatitis C Completed 03/30/2021 Zoster Vaccines Completed 06/26/2022, 03/26/2022 PHQ-2 (Physician [place]) Completed 09/27/2024 Pneumococcal Vaccine: 50+ Years Completed 11/27/2024 Meningococcal B Vaccine Aged Out No l [...] Spann, RN Medical Devices Implanted Type Area Process Improvement Consultant Device Identifier Shelf Expiration Date Model / Serial / Lot Attune Tibial Base Affixium Fixed Bearing Implanted:Qty : 1 on 10/13/2023 by Branden Salgado MD at [facility] Knee Components Left: Knee DEPUY SYNTHES [id number] 09/15/2032 1506-21- 010 / / [id number] Attune Femoral Porocoat Cruciate Retaining Implanted:Qty : 1 on 10/13/2023 by Branden Salgado MD at [facility] Knee Components Left: Knee DEPUY SYNTHES [id number] 08/15/2032 1504-01- 109 / / [id number] Attune Tibial Insert Fixed Bearing Medial Stabilized Implanted:Qty : 1 on 10/13/2023 by Branden Salgado MD at [facility] Knee Components Left: Knee DEPUY SYNTHES [id number] 08/15/2030 1518-20- 910 / / [id number] Procedures Procedure Name Priority Date/Time Associated Diagnosis Comments EMG GENERIC (SCAN ORDER) 12/18/2024 OXR RT ANKLE M3V Routine 11/30/2024 10:1 5 AM CDT Bilateral ankle pain, unspecified chronicity OXR LT ANKLE M3V Routine 11/30/2024 10:1 5 AM CDT Bilateral ankle pain, unspecified chronicity HEMOGLOBIN, GLYCOSYLATED Routine 11/27/2024 10:47 AM CDT Elevated fasting glucose COLLECT.CAPILLARY (FNGR,HEEL,EAR) Routine 11/27/2024 10:19 AM CDT Elevated fasting glucose HEPATITIS C ANTIBODY Routine 03/30/2021 12:03 PM COMMUNICATION ASSISTANT Need for hepatitis C screening test COLONOSCOPY GENERIC (SCAN ORDER) 07/07/2020 from Last 3 Months or Most Recently Relevant to Health Maintenance Results * EMG GENERIC (SCAN ORDER) (12/18/2024) 12/18/2024 us [facility] Scanned SCANNING Final Resu lt * OXR RT ANKLE M3V (11/30/2024 10:15 AM CDT) Anatomical Region Laterality Modality Radiographic Lisa ging Narrative 11/30/2024 10:24 AM CDT Right ankle Findings: No acute osseous abnormality, fracture, dislocation. Degenerative changes noted in the tibiotalar joint talonavicular joints with some spurring subchondral sclerosis and cyst formation. Calcaneal enesthophytes at plantar fascia insertion and Achilles insertion. Mortise joint spacing well-preserved Raul Torres MD GENERAL IMAGING Final Result * OXR LT ANKLE M3V (11/30/2024 10:15 AM CDT) Anatomical Region Laterality Modality Radiographic Lisa ging Narrative 11/30/2024 10:24 AM CDT Left ankle Findings: No acute osseous abnormality, fracture, dislocation. Degenerative changes noted in the tibiotalar joint talonavicular joints with some spurring subchondral sclerosis and cyst formation. Calcaneal enesthophytes at plantar fascia insertion and Achilles insertion. Mortise joint spacing well-preserved Raul Torres MD GENERAL IMAGING Final Result * HEMOGLOBIN, GLYCOSYLATED (11/27/2024 10:47 AM CDT) HGB A1C 5.5 % [facility] 11/27/2024 10:4 7 AM CDT Sherri Fisher SYSTEMS TRAINER LABORATORY Final Result [facility] [address] [address], [place] * HEPATITIS C ANTIBODY (03/30/2021 12:03 PM COMMUNICATION ASSISTANT) HEPATITIS C AB NON-REACTI VE NON-REACT STEFFI 03/30/2021 10:[address] [facility] Comment: ANTIBODIES TO HCV NOT DETECTED. DOES NOT EXCLUDE THE POSSIBILITY OF EXPOSURE TO HCV. 03/30/2021 12:0 3 PM COMMUNICATION ASSISTANT Sherri GOYAL [facility] Final Result [facility] [address] [place] [address], [id number] * COLONOSCOPY GENERIC (07/07/2020) 07/07/2020 Narrative 07/07/2020 Ordered by an unspecified provider. Documents Scanned SCANNING Final Result from Last 3 Months or Most Recently Relevant to Health Maintenance Insurance [employer] Advance Directives * Full Code (Latest Code Status on File) Date Activated Date Inactivated Comments 10/15/2023 8:52 AM Care Teams Barrel Assembler Helper Relationship Specialty Start Date End Date Sherri Fisher FNP [address] [place] [address] PCP - General Nurse Practitioner Family 12/20/18
--- OUTSIDE RECORDS SUMMARY | 2025-01-08 12:15 | XMS_ITS | Encounter Summary ---
Author Organization [facility] Address [address] [place] [address] Care Team Providers Care Bus Assistant Name Role Phone Unavailable Primary Care Provider Unavailabl e Encounter Details Date Type Department Care Team (Late st Contact Info) Description 04/02/2005 Outpatient Historical [facility] Medicine [address] [place] [phone] Larry Patel, DO [address] [facility] [place] [phone] Social History Tobacco Use Types Packs/Day Years Used Date Smoking Tobacco: Never Assessed Sex and Gender Information Value Date Recorded Sex Assigned at Not on file Legal Sex Male 4:54 AM DISTRIBUTION SALES MANAGER Gender Identity Not on file Sexual Orientation Not on file documented as of this encounter Plan of Treatment Not on file documented as of this encounter Visit Diagnoses Not on filedocumented in this encounter
--- OUTSIDE RECORDS SUMMARY | 2025-01-08 12:15 | XMS_ITS | Encounter Summary ---
Author Organization [facility] Address [address] [place] [address] Care Team Providers Care Deputy Sheriff/Investigator Name Role Phone Unavailable Primary Care Provider Unavailabl e Encounter Details Date Type Department Care Team (Late st Contact Info) Description 01/29/2004 Outpatient Historical [facility] Medicine [address] [place] [phone] Larry Patel, DO [address] [facility] [place] [phone] Social History Tobacco Use Types Packs/Day Years Used Date Smoking Tobacco: Never Assessed Sex and Gender Information Value Date Recorded Sex Assigned at Not on file Legal Sex Male 4:54 AM FINANCIAL SALES ADVISOR Gender Identity Not on file Sexual Orientation Not on file documented as of this encounter Plan of Treatment Not on file documented as of this encounter Visit Diagnoses Not on filedocumented in this encounter
--- OUTSIDE RECORDS SUMMARY | 2025-01-08 12:15 | XMS_ITS | Encounter Summary ---
Author Organization [facility] Address [facility] [place] [address] Care Team Providers Care Distance Education Director Name Role Phone Sherri Fisher JYOTSNA Primary Care Provider [phone] Encounter Details Date Type Department Care Team (Late st Contact Info) Description 10/03/2024 Diligent Board Member Services Message Enc [facility] Medical Group Orthopedic & Sports Medicine - [place] [address] [place] [address] Raul Torres MD [address] [place] [address] Knee issues Social History Tobacco Use Types Packs/Day Years Used Date Smoking Tobacco: Former Cigarettes 1.5 22 1 984 - 04/18/2005 Passive Smoke Exposure: Past Smokeless Tobacco: Never Comments:no longer smoker//v apes, Provider to [place] Alcohol Use Standard Drinks/Week Comments Yes 6.7 [...] Sex Assigned at Male 06/06/2024 2:33 PM SHEET METAL WELDER Legal Sex Male 4:17 PM CDT Gender Identity Male 06/01/2021 4:37 AM SHEET METAL WELDER Sexual Orientation Straight 06/01/2021 4: 37 AM SHEET METAL WELDER documented as of this encounter Functional Status [...] PM CDT Lilliam Donnelly RN Active * Do you have serious difficulty walking or climbing stairs? Answer Date of Assessment Author Status Yes 10/13/2023 1:31 PM CDT Lilliam Donnelly RN Active * Do you [...] Date Author Status No 10/13/2023 1:31 PM CDT Lilliam Donnelly RN Active documented in this encounter Plan of Treatment Upcoming Encounters Date Type Department Care Team (Late st Contact Info) Description 04/05/2025 9:00 AM SHEET METAL WELDER Office Visit [facility] Medical Group Orthopedic & Sports Medicine - [place] [address] [place] [address] Raul Torres MD [address] [place] [address] documented as of this encounter Goals Goal [...] documented as of this encounter Care Teams Distance Education Director Relationship Specialty Start Date End Date Sherri Fisher FNP [address] [place] [address] PCP - General Nurse Practitioner Family 12/20/18 documented as of this encounter
--- OUTSIDE RECORDS SUMMARY | 2025-01-08 12:15 | XMS_ITS | Encounter Summary ---
Author Organization [facility] Address [facility] [place] [address] Care Team Providers Care Textile Machine Operator Name Role Phone Sherri Fisher JYOTSNA Primary Care Provider [phone] Encounter Details Date Type Department Care Team (Late st Contact Info) Description 11/14/2024 [email or web address] Message Enc [facility] Medical Group Orthopedic & Sports Medicine - [place] [address] [place] [address] Raul Torres MD [address] [place] [address] Knee/ankle issues Social History Tobacco Use Types Packs/Day Years Used Date Smoking Tobacco: Former Cigarettes 1.5 22 1 984 - 04/18/2005 Passive Smoke Exposure: Past Smokeless Tobacco: Never Comments:no longer smoker//v apes, Provider to [place] Alcohol Use Standard Drinks/Week Comments Yes 6.7 [...] Sex Assigned at Male 06/06/2024 2:33 PM MAIL PROCESSOR Legal Sex Male 4:17 PM CDT Gender Identity Male 06/01/2021 4:37 AM MAIL PROCESSOR Sexual Orientation Straight 06/01/2021 4: 37 AM MAIL PROCESSOR documented as of this encounter Functional Status [...] PM SUNGT Lilliam Donnelly RN Active documented as of [...] st Contact Info) Description 04/05/2025 9:00 AM MAIL PROCESSOR Office Visit [facility] Medical Group Orthopedic & Sports Medicine - [place] [address] [place] [address] Raul Torres MD [address] [place] [address] documented as of this encounter Goals Goal [...] documented as of this encounter Care Teams Textile Machine Operator Relationship Specialty Start Date End Date Sherri Fisher FNP [address] [place] [address] PCP - General Nurse Practitioner Family 12/20/18 documented as of this encounter
--- OUTSIDE RECORDS SUMMARY | 2025-01-08 12:15 | XMS_ITS | Encounter Summary ---
Author Organization [facility] Address [address] [place] [address] Care Team Providers Care Critical Care Cns Name Role Phone Unavailable Primary Care Provider Unavailabl e Encounter Details Date Type Department Care Team (Late st Contact Info) Description 10/14/2003 Outpatient Historical [facility] Medicine [address] [place] [address] [place] Social History Tobacco Use Types Packs/Day Years Used Date Smoking Tobacco: Never Assessed Sex and Gender Information Value Date Recorded Sex Assigned at Not on file Legal Sex Male 4:54 AM CLOCKMAKER APPRENTICE Gender Identity Not on file Sexual Orientation Not on file documented as of this encounter Plan of Treatment Not on file documented as of this encounter Visit Diagnoses Not on filedocumented in this encounter
--- OUTSIDE RECORDS SUMMARY | 2025-01-08 12:15 | XMS_ITS | Encounter Summary ---
Author Organization [facility] Address [facility] [place] [address] Care Team Providers Care Prison Librarian Name Role Phone Sherri Fisher Primary Care Provider [phone] Encounter Details Date Type Department Care Team (Late st Contact Info) Description 12/03/2024 [email or web address] Message Enc [facility] Medical Group Family & Internal Medicine [facility] [address] [place] [address] Sherri Fisher FNP [address] [place], [place] [phone] Tetanus shot Social History Tobacco Use Types Packs/Day Years Used Date Smoking Tobacco: Former Cigarettes 1.5 22 1 984 - 04/18/2005 Passive Smoke Exposure: Past Smokeless Tobacco: Never Comments:no longer smoker//v apes, Provider to [place] Alcohol Use Standard Drinks/Week Comments Yes 7.7 [...] Sex Assigned at Male 06/06/2024 2:33 PM AIRVEYOR OPERATOR Legal Sex Male 4:17 PM CDT Gender Identity Male 06/01/2021 4:37 AM AIRVEYOR OPERATOR Sexual Orientation Straight 06/01/2021 4: 37 AM AIRVEYOR OPERATOR documented as of this encounter Functional Status [...] st Contact Info) Description 04/05/2025 9:00 AM AIRVEYOR OPERATOR Office Visit [facility] Medical Group Orthopedic & Sports Medicine - [place] [address] [place] [address] Raul Torres MD [address] [place] [address] documented as of this encounter Goals Goal [...] documented as of this encounter Care Teams Prison Librarian Relationship Specialty Start Date End Date Sherri Fisher FNP [address] [place] [address] PCP - General Nurse Practitioner Family 12/20/18 documented as of this encounter
--- OUTSIDE RECORDS SUMMARY | 2025-01-08 12:15 | XMS_ITS | Encounter Summary ---
Author Organization [facility] Address [facility] [place] [address] Care Team Providers Care Bill Sorter Name Role Phone Sherri Fisher JYOTSNA Primary Care Provider [phone] Encounter Details Date Type Department Care Team (Late st Contact Info) Description 09/01/2023 Infoharmoni Message Enc [facility] [address] [address] Mychart, [facility] Provider APPT Social History Tobacco Use Types Packs/Day Years Used Date Smoking Tobacco: Former Cigarettes 1.5 22 1 984 - 04/18/2005 Passive Smoke Exposure: Past Smokeless Tobacco: Never Comments:no longer smoker//v apes, Provider to [place] Alcohol Use Standard Drinks/Week Comments Yes 6.7 [...] Sex Assigned at Male 06/06/2024 2:33 PM PRICK STITCHER Legal Sex Male 4:17 PM CDT Gender Identity Male 06/01/2021 4:37 AM PRICK STITCHER Sexual Orientation Straight 06/01/2021 4: 37 AM PRICK STITCHER documented as of this encounter Plan of Treatment Upcoming Encounters Date Type Department Care Team (Late st Contact Info) Description 04/05/2025 9:00 AM PRICK STITCHER Office Visit [facility] Medical Group Orthopedic & Sports Medicine - [place] [address] [place] [address] Raul Torres MD [address] [place] [address] documented as of this encounter Visit Diagnoses Not on filedocumented in this encounter Additional Health Concerns Assessment Noted Time PHQ-9 Depression Total Score: 5 07/12/19 24 12:13 PM CDT documented as of this encounter Care Teams Bill Sorter Relationship Specialty Start Date End Date Sherri Fisher FNP [address] [place] [address] PCP - General Nurse Practitioner Family 12/20/18 documented as of this encounter
--- OUTSIDE RECORDS SUMMARY | 2025-01-08 12:15 | XMS_ITS | Clinical Summary ---
Author Organization [facility] Address [address] [facility] Attn: Epic Prelude ADT [place] [address] Care Team Providers Care Celery Tier Name Role Phone Unavailable Primary Care Provider Unavailabl e Social History Tobacco Use Types Packs/Day Years Used Date Smoking Tobacco: Never Assessed Sex and Gender Information Value Date Recorded Sex Assigned at Not on file Legal Sex Male 4:54 AM SQL SERVER DBA Gender Identity Not on file Sexual Orientation [...]
--- OUTSIDE RECORDS SUMMARY | 2025-01-08 12:15 | XMS_ITS | Encounter Summary ---
Author Organization [facility] Address [facility] [place] [address] Care Team Providers Care Product Merchandiser Name Role Phone Sherri Fisher JYOTSNA Primary Care Provider [phone] Encounter Details Date Type Department Care Team (Late st Contact Info) Description 08/27/2024 Kaybus Message Enc [facility] Medical Group Orthopedic & Sports Medicine - [place] [address] [place], [place] [address] [phone] Branden Salgado MD [address] [place] [address] Upcoming hand Surgery Social History Tobacco Use Types Packs/Day Years Used Date Smoking Tobacco: Former Cigarettes 1.5 22 1 984 - 04/18/2005 Passive Smoke Exposure: Past Smokeless Tobacco: Never Comments:no longer smoker//v apes, Provider to [place] Alcohol Use Standard Drinks/Week Comments Yes 6.7 [...] Sex Assigned at Male 06/06/2024 2:33 PM WAREHOUSING TECHNICIAN Legal Sex Male 4:17 PM CDT Gender Identity Male 06/01/2021 4:37 AM WAREHOUSING TECHNICIAN Sexual Orientation Straight 06/01/2021 4: 37 AM WAREHOUSING TECHNICIAN documented as of this encounter Functional Status * Are you deaf or do you have serious difficulty hearing Answer Date of Assessment Author Status No 10/13/2023 1:31 PM Lilliam Garcia RN Active * Are you blind or do you have serious difficulty seeing, even when wearing glasses? Answer Date of Assessment Author Status No 10/13/2023 1:31 PM Lilliam Garcia RN Active * Do you have serious difficulty walking or climbing stairs? Answer Date of Assessment Author Status Yes 10/13/2023 1:31 PM Lilliam Garcia RN Active * Do you have difficulty dressing or bathing? Answer Date of Assessment Author Status No 10/13/2023 1:31 PM Lilliam Garcia RN Active * Because of a physical, mental, or emotional condition, do you have difficulty doing errands alone such as visiting a doctor's office or shopping? Answer Date of Assessment Author Status No 10/13/2023 1:31 PM Lilliam Garcia RN Active documented as of this encounter Mental Status * Because of a physical, mental, or emotional condition, do you have serious difficulty concentrating, remembering, or making decisions? Answer Entry Date Author Status No 10/13/2023 1:31 PM Lilliam Garcia RN Active documented in this encounter Plan of Treatment Upcoming Encounters Date Type Department Care Team (Late st Contact Info) Description 04/05/2025 9:00 AM WAREHOUSING TECHNICIAN Office Visit [facility] Medical Group Orthopedic & Sports Medicine - [place] [address] [place] [address] Raul Torres MD [address] [place] [address] documented as of this encounter Goals Goal [...] documented as of this encounter Care Teams Product Merchandiser Relationship Specialty Start Date End Date Sherri Fisher FNP [address] [place] [address] PCP - General Nurse Practitioner Family 12/20/18 documented as of this encounter
--- OUTSIDE RECORDS SUMMARY | 2025-01-08 12:15 | XMS_ITS | Encounter Summary ---
Author Organization [facility] Address [facility] [place] [address] Care Team Providers Care Ruby On Rails Engineer Name Role Phone Sherri Fisher JYOTSNA Primary Care Provider Encounter Details Date Type Department Care Team (Late st Contact Info) Description 09/19/2023 [employer] Message Enc [facility] Medical Group Orthopedic & Sports Medicine - [place] [address] [place] [address] Raul Torres MD [address] [place] [address] Appointment on Social History Tobacco Use Types Packs/Day Years Used Date Smoking Tobacco: Former Cigarettes 1.5 22 1 984 - 04/18/2005 Passive Smoke Exposure: Past Smokeless Tobacco: Never Comments:no longer smoker//v apdon, Provider to [place] Alcohol Use Standard Drinks/Week Comments Yes 6.7 [...] Sex Assigned at Male 06/06/2024 2:33 PM UTILIZATION SUPERVISOR Legal Sex Male 4:17 PM CDT Gender Identity Male 06/01/2021 4:37 AM UTILIZATION SUPERVISOR Sexual Orientation Straight 06/01/2021 4: 37 AM UTILIZATION SUPERVISOR documented as of this encounter Plan of Treatment Upcoming Encounters Date Type Department Care Team (Late st Contact Info) Description 04/05/2025 9:00 AM UTILIZATION SUPERVISOR Office Visit [facility] Medical Group Orthopedic & Sports Medicine - [place] [address] [place] [address] Raul Torres MD [address] [place] [address] documented as of this encounter Visit Diagnoses Not on filedocumented in this encounter Additional Health Concerns Assessment Noted Time PHQ-9 Depression Total Score: 5 07/12/19 24 12:13 PM CDT documented as of this encounter Care Teams Ruby On Rails Engineer Relationship Specialty Start Date End Date Sherri Fisher FNP [address] [place] [address] PCP - General Nurse Practitioner Family 12/20/18 documented as of this encounter
--- OUTSIDE RECORDS SUMMARY | 2025-01-08 12:15 | XMS_ITS | Encounter Summary ---
Author Organization [facility] Address [address] [place] [address] Care Team Providers Care Production Proofreader Name Role Phone Unavailable Primary Care Provider Unavailabl e Encounter Details Date Type Department Care Team (Late st Contact Info) Description 02/27/2004 Outpatient Historical [facility] Medicine [address] [place] [phone] Larry Patel, DO [address] [facility] [place] [phone] Social History Tobacco Use Types Packs/Day Years Used Date Smoking Tobacco: Never Assessed Sex and Gender Information Value Date Recorded Sex Assigned at Not on file Legal Sex Male 4:54 AM PARTS CLASSIFIER Gender Identity Not on file Sexual Orientation Not on file documented as of this encounter Plan of Treatment Not on file documented as of this encounter Visit Diagnoses Not on filedocumented in this encounter
--- OUTSIDE RECORDS SUMMARY | 2025-01-08 12:15 | XMS_ITS | Encounter Summary ---
Author Organization [facility] Address [facility] [place] [address] Care Team Providers Care Demolition Crane Operator Name Role Phone Sherri Fisher JYOTSNA Primary Care Provider [phone] Encounter Details Date Type Department Care Team (Late st Contact Info) Description 09/07/2024 EndoSpheret Message Enc [facility] Medical Group Orthopedic & Sports Medicine - [place] [address] [place] [address] Raul Torres MD [address] [place] [address] Upcoming appt Social History Tobacco Use Types Packs/Day Years Used Date Smoking Tobacco: Former Cigarettes 1.5 22 1 984 - 04/18/2005 Passive Smoke Exposure: Past Smokeless Tobacco: Never Comments:no longer smoker//v apes, Provider to [employer] Alcohol Use Standard Drinks/Week Comments Yes 6.7 [...] Sex Assigned at Male 06/06/2024 2:33 PM SOFT METALS ENGRAVER HAND Legal Sex Male 4:17 PM CDT Gender Identity Male 06/01/2021 4:37 AM SOFT METALS ENGRAVER HAND Sexual Orientation Straight 06/01/2021 4: 37 AM SOFT METALS ENGRAVER HAND documented as of this encounter Functional Status [...] st Contact Info) Description 04/05/2025 9:00 AM SOFT METALS ENGRAVER HAND Office Visit [facility] Medical Group Orthopedic & Sports Medicine - [place] [address] [place] [address] Raul Torres MD [address] [place] [address] documented as of this encounter Goals Goal [...] documented as of this encounter Care Teams Demolition Crane Operator Relationship Specialty Start Date End Date Sherri Fisher FNP [address] [place] [address] PCP - General Nurse Practitioner Family 12/20/18 documented as of this encounter
--- OUTSIDE RECORDS SUMMARY | 2025-01-08 12:15 | XMS_ITS | Clinical Summary ---
Author Organization [facility] Address [address] [place], [facility] [address] [place] [address] Phone Care Team Providers Care Harness Preparer Name Role Phone Sherri Fisher APRN, WIRING INSPECTOR Primary Care Provider Social History Tobacco Use Types Packs/Day Years Used Date Smoking Tobacco: Never Assessed Sex and Gender Information Value Date Recorded Sex Assigned at Not on file Legal Sex Male 10:11 AM ELECTRIC ACCOUNTING MACHINE OPERATOR Gender Identity Not on file [...] Recently Relevant to Health Maintenance Care Teams Harness Preparer Relationship Specialty Start Date End Date Sherri Fisher, CHRONIC SPECIALIST, WIRING INSPECTOR [address] [place] [address] PCP - General Internal Medicine 05/27/20
--- OUTSIDE RECORDS SUMMARY | 2025-01-08 12:15 | XMS_ITS | Encounter Summary ---
Author Organization [facility] Address [facility]6 [place] [address] Care Team Providers Care Carpenter Assistant Installer Name Role Phone Sherri Fisher JYOTSNA Primary Care Provider [phone] Encounter Details Date Type Department Care Team (Late st Contact Info) Description 11/21/2023 [employer] Message Enc [facility] Medical Group Orthopedic & Sports Medicine - [place] [address] [place], [place] [address] [phone] Branden Salgado MD [address] [place] [address] November 22 appt Social History Tobacco Use Types Packs/Day Years Used Date Smoking Tobacco: Former Cigarettes 1.5 22 1 984 - 04/18/2005 Passive Smoke Exposure: Past Smokeless Tobacco: Never Comments:no longer smoker//v apes, Provider to [employer] Alcohol Use Standard Drinks/Week Comments Yes 6.7 [...] Sex Assigned at Male 06/06/2024 2:33 PM RESEARCH AND DEVELOPMENT TECHNICIAN Legal Sex Male 4:17 PM CDT Gender Identity Male 06/01/2021 4:37 AM RESEARCH AND DEVELOPMENT TECHNICIAN Sexual Orientation Straight 06/01/2021 4: 37 AM RESEARCH AND DEVELOPMENT TECHNICIAN documented as of this encounter Functional [...] st Contact Info) Description 04/05/2025 9:00 AM RESEARCH AND DEVELOPMENT TECHNICIAN Office Visit [facility] Medical Group Orthopedic & Sports Medicine - [place] [address] [place] [address] Raul Torres MD [address] [place] [address] documented as of this encounter Goals Goal [...] documented as of this encounter Care Teams Carpenter Assistant Installer Relationship Specialty Start Date End Date Sherri Fisher FNP [address] [place] [address] PCP - General Nurse Practitioner Family 12/20/18 documented as of this encounter
--- OUTSIDE RECORDS SUMMARY | 2025-01-08 12:15 | XMS_ITS | Encounter Summary ---
Author Organization [facility] Address [facility] [place] [address] Care Team Providers Care Fruit Worker Name Role Phone Sherri Fisher Primary Care Provider [phone] Encounter Details Date Type Department Care Team (Late st Contact Info) Description 06/09/2022 Flow Traderst Message Enc [facility] Medical Group Family & Internal Medicine [facility] [address] [place] [address] Sherri Fisher FNP [address] [place], [place] [phone] Arthritis meds Social History Tobacco Use Types [...] Sex Assigned at Male 06/06/2024 2:33 PM OB TECH Legal Sex Male 4:17 PM CDT Gender Identity Male 06/01/2021 4:37 AM OB TECH Sexual Orientation Straight 06/01/2021 4: 37 AM OB TECH documented as of this encounter Plan of Treatment Upcoming Encounters Date Type Department Care Team (Late st Contact Info) Description 04/05/2025 9:00 AM OB TECH Office Visit [facility] Medical Group Orthopedic & Sports Medicine - [place] [address] [place] [address] Raul Torres MD [address] [place] [address] documented as of this encounter Visit Diagnoses Not on filedocumented in this encounter Additional Health Concerns Infection Onset Date Last Indicated Resolved Time COVID-19 Rule Out 04/20/2023 04/20/2023 04/20/2023 2:48 PM OB TECH Influenza - Seasonal 04/20/2023 04/20/2023 024 12:32 AM OB TECH Assessment Noted Time PHQ-9 Depression Total Score: 2 10/03/19 21 11:46 AM CDT documented as of this encounter Care Teams Fruit Worker Relationship Specialty Start Date End Date Sherri Fisher FNP [address] [place] [address] PCP - General Nurse Practitioner Family 12/20/18 documented as of this encounter
--- OUTSIDE RECORDS SUMMARY | 2025-01-08 12:15 | XMS_ITS | Encounter Summary ---
Author Organization [facility] Address [facility] [place] [address] Care Team Providers Care Carrier Loader Name Role Phone Sherri Fisher JYOTSNA Primary Care Provider [phone] Encounter Details Date Type Department Care Team (Late st Contact Info) Description 08/09/2023 Showkicker Message Enc [facility] Medical Group Orthopedic & Sports Medicine - [place] [address] [place] [address] Branden Salgado MD [address] [place] [address] Appointment for joint replacement Social History Tobacco Use Types Packs/Day Years Used Date Smoking Tobacco: Former Cigarettes 1.5 22 1 984 - 04/18/2005 Passive Smoke Exposure: Past Smokeless Tobacco: Never Comments:no longer smoker//v apes, Provider to [place] Alcohol Use Standard Drinks/Week Comments Yes 6.7 [...] Sex Assigned at Male 06/06/2024 2:33 PM BEADING SAWYER Legal Sex Male 4:17 PM CDT Gender Identity Male 06/01/2021 4:37 AM BEADING SAWYER Sexual Orientation Straight 06/01/2021 4: 37 AM BEADING SAWYER documented as of this encounter Progress Notes [...] st Contact Info) Description 04/05/2025 9:00 AM BEADING SAWYER Office Visit [facility] Medical Group Orthopedic & Sports Medicine - [place] [address] [place] [address] Raul Torres MD [address] [place] [address] documented as of this encounter Visit Diagnoses Not on filedocumented in this encounter Additional Health Concerns Assessment Noted Time PHQ-9 Depression Total Score: 5 07/12/19 24 12:13 PM CDT documented as of this encounter Care Teams Carrier Loader Relationship Specialty Start Date End Date Sherri Fisher FNP [address] [place] [address] PCP - General Nurse Practitioner Family 12/20/18 documented as of this encounter
== END 2025-01-08 11:33 | disposition home or self-care (01) ==
LOC: ANHLAB 11:33
PROVIDERS: Visit Provider Anesthesiology
DX: Z01.818 Encounter for other preprocedural examination (principal); I10 Essential (primary) hypertension; Z87.891 Personal history of nicotine dependence
CPT/HCPCS: 93005

== ENCOUNTER 2025-01-17 08:49 | Day surgery (SDC) | payer OTHER, SELFPAY ==
[2025-01-03 11:19] VITALS: BMI 30.2
[2025-01-17] VITALS (7 sets, daily range): BP systolic 98–128; BP diastolic 72–98; PULSE 40–64; RESP 14–20; TEMP 36.1–36.4; O2SAT 96–100; BMI 29.5
--- NOTE | ~2025-01-17 | XR_ITS ---
EXAMINATION: XR surgery orthopedic DATE: 01/17/2025 12:51 INDICATION: Right basal joint/first carpal metacarpal arthroplasty TECHNIQUE: Single fluoroscopic image of the metacarpal region of the right hand was obtained during procedure performed by Dr. Parkinson. Radiologist was not present for the imaging or procedure. The amount of fluoroscopy time used during this procedure was 0.3 minutes. Total DAP was 1.91 cGycm^2. COMPARISON: 06/19/2024 FINDINGS: Interval resection of the trapezium for first carpometacarpal suspension arthroplasty. Metallic buttons are seen in the metaphyseal regions of the first and second metacarpals likely for a tightrope type fixation. Expected lucent gas at the operative bed. No fractures identified. Moderate triscaphe osteoarthritis at the remaining articulations between the scaphoid and trapezoid. IMPRESSION: 1. Fluoroscopy utilized during first carpometacarpal suspension arthroplasty. Reviewed, dictated and finalized at location A.
--- NOTE | 2025-01-17 07:03 | WPDHPUPDATE1 ---
History and Physical Update Update Date/Time: 01/17/25 07:03 Patient seen and examined in pre-operative holding area. No interval change in medical history or symptoms. Patient recalls previous discussion of benefits and alternatives to procedure. Continues to desire to proceed with right endoscopic possible open carpal tunnel release, right cubital tunnel release and right basal joint arthroplasty with mini-tightrope . Reviewed procedure, post-op expectations and risks including but not limited to bleeding, infection, injury to tendon/nerve/vessel, decreased hand function, stiffness, RSD, no change or worsening of symptoms, hardware complication. I discussed the possible use of assistants and their participation in the case. Patient stated understanding and signed the consent form wishing to proceed.
--- NOTE | 2025-01-17 07:04 | P.OP_ITS ---
Procedure Note - Detailed Date of Procedure 01/17/25 Pre-op Diagnosis Osteoarthritis Carpometacarpal Joint RT. Thumb , right CTS and CuTS Post-op Diagnosis Same Procedure Performed right ectr, right CuTR and right basal joint arthroplasty Surgeon Maximo Parkinson MD Home Care Music Therapist Izzy Rosen PA-C Anesthesia MAC Description of Procedure INFORMED CONSENT: The patient was seen and examined and marked in the pre-op area.? The patient signed the consent form. PROCEDURE IN DETAIL:The patient taken back to OR on the stretcher in supine position. Time out performed with anesthesia, surgeon and staff agreeing on patient's name site and surgery to be performed SCDs were placed on the lower extremities and inflated. A tourniquet was placed on {right} upper extremity and antibiotics given IV After anesthesia administered sedation I injected {10}cc 1%lido with epi and 0.5% marcaine plain at the operative sites The?{right upper extremity}?was prepped and draped in sterile fashion the??{right upper extremity} was? exsanguinated with Esmarch bandage and tourniquet inflated to 250mmHg I made a transverse incision in the {right} volar distal wrist crease through skin and dermis with 15 blade scalpel.? Littler scissors spread down to antebrachial fascia. A small incision was made in antebrachial fascia allowing access to Carpal tunnel. I proceeded with sequential dilation staying in line with the ring finger and hugging the hook of the hamate.? I then used the synovial elevator to free any adhesions from the underside of the transverse carpal ligament. Next I was able to insert the Microaire endoscopic carpal tunnel device with direct visualization of the transverse fibers on the monitor and proceeded with complete segmental retrograde release of the ligament in its entirety.? I irrigated with normal saline and closed with 4-0 monocryl for dermis and subcuticular closure. I next proceeded with making a longitudinal incision between two heads for flexor carpi ulnaris at end of {right} cubital tunnel with 15 blade scalpel.? Littler scissors were used to spread down to FCU fascia.? An incision was made in FCU fascia and ulnar nerve identified exiting cubital tunnel.? I proceeded with complete retrograde release of the cubital tunnel including 7cm proximal for the intermuscular septum.? The nerve appeared healthy with visible vaso nervorum.? There was no subluxation on full elbow range of motion. ? I irrigated with normal saline and closure with 4-0 monocryl for dermis and subcuticular. Next I proceeded with making a longitudinal incision over the right thumb CMC joint between APL and EPL through skin and dermis with 15 blade scalpel. Littler scissors were used to spread through subcutaneous tissue down to the joint capsule. A branch of the dorsal radial sensory nerve was identified and protected throughout the procedure. I proceeded with making my capsular incision and reflecting this over the trapezium with 15 blade scalpel. [place] elevator was used to enter the carpal metacarpal space and verify location of trapezium on mini fluoroscopy. I then proceeded with trapezii ectomy using a combination of McG[place]ry elevator 15 blade rongeur is a and osteotome as it was significantly calcified to the capsule as well as around the flexor carpi radialis tendon and to the trapezoid. After near complete resection of the trapezium was verified on multiple views of fluoroscopy I irrigated with normal saline. The dorsal branch of the radial artery was also identified at the beginning of the procedure and retracted proximally and protected throughout the procedure. Next I proceeded with making a longitudinal incision over the base of the 2nd metacarpal through skin and dermis with a 15 blade scalpel. Littler scissors were used to spread down to periosteum. I made an incision on the periosteum on the ulnar aspect of the proximal 3rd of the 2nd metacarpal base and reflected interosseous with [place] elevator. Next using the Arthrex mini C ring guide I was able to place a variable gauge K-wire in a radial to ulnar fashion from the base of the thumb metacarpal out the ulnar side of the 2nd metacarpal base. Wire placement was verified on multiple views of fluoroscopy. I made a skin incision around the insertion of the K-wire on the radial aspect of the thumb and then spread down to periosteum. The mini tight rope was then placed in standard fashion using the loop on the K-wire coming out of the 2nd metacarpal. Fluoroscopy verified the thumb metacarpal button was on bone and there was good maintenance of the joint space. The 2nd metacarpal button was then placed and provisionally tied noting no subsidence on axial load or impingement on thumb range of motion so this was fully secured. We irrigated with normal saline. 3-0 Vicryl was used to repair capsule and periosteum. 3-0 Vicryl was used for dermis and 4-0 Monocryl for subcuticular closure. The incisions were covered with Dermabond then 4x4s, jordi, and a posterior elbow and volar wrist splint for patient safety, security and comfort and secured with bradley bandages after the tourniquet was let down noting the hand was warm and well perfused.? Patient awaken from anesthesia and transferred to recovery in stable condition Complications - none EBL- 1cc Disposition - home in stable condition Izzy Rosen PA-C was essential for positioning, retraction, closure and dressing placement [facility] Billing Surgery - Charge Forward: Surgery Billing ([id number] same for izzy suh )
[2025-01-17] MEDS: ACETAMINOPHEN 500 MG TABLET 1000 MG PO (09:42)
--- OUTSIDE RECORDS SUMMARY | 2025-01-17 09:44 | XMS_ITS | Encounter Summary ---
Author Organization [facility] Address [facility]6 [place] [address] Care Team Providers Care Body Builder Apprentice Name Role Phone Sherri Fisher JYOTSNA Primary Care Provider [phone] Encounter Details Date Type Department Care Team (Late st Contact Info) Description 10/03/2024 ClosetDasht Message Enc [facility] Medical Group Orthopedic & Sports Medicine - [place] [address] [place] [address] Raul Torres MD [address] [place] [address] Knee issues Social History Tobacco Use Types Packs/Day Years Used Date Smoking Tobacco: Former Cigarettes 1.5 22 1 984 - 04/18/2005 Passive Smoke Exposure: Past Smokeless Tobacco: Never Comments:no longer smoker//v apes, Provider to [place] Alcohol Use Standard Drinks/Week Comments Yes [...] Sex Assigned at Male 06/06/2024 2:33 PM SERVICE PARTS DRIVER Legal Sex Male 4:17 PM CDT Gender Identity Male 06/01/2021 4:37 AM SERVICE PARTS DRIVER Sexual Orientation Straight 06/01/2021 4: 37 AM SERVICE PARTS DRIVER documented as of this encounter Functional Status [...] st Contact Info) Description 04/05/2025 9:00 AM SERVICE PARTS DRIVER Office Visit [facility] Medical Group Orthopedic & Sports Medicine - [place] [address] [place] [address] Raul Torres MD [address] [place] [address] documented as of this encounter Goals Goal [...] documented as of this encounter Care Teams Body Builder Apprentice Relationship Specialty Start Date End Date Sherri Fisher FNP [address] [place] [address] PCP - General Nurse Practitioner Family 12/20/18 documented as of this encounter
--- OUTSIDE RECORDS SUMMARY | 2025-01-17 09:44 | XMS_ITS | Encounter Summary ---
Author Organization [facility] Address [address] [place] [address] Care Team Providers Care Cloud Developer Name Role Phone Unavailable Primary Care Provider Unavailabl e Encounter Details Date Type Department Care Team (Late st Contact Info) Description 01/29/2004 Outpatient Historical [facility] Medicine [address] [place] [phone] Larry Patel, DO [address] [facility] [place] [phone] Social History Tobacco Use Types Packs/Day Years Used Date Smoking Tobacco: Never Assessed Sex and Gender Information Value Date Recorded Sex Assigned at Not on file Legal Sex Male 4:54 AM TIN FLOPPER Gender Identity Not on file Sexual Orientation Not on file documented as of this encounter Plan of Treatment Not on file documented as of this encounter Visit Diagnoses Not on filedocumented in this encounter
--- OUTSIDE RECORDS SUMMARY | 2025-01-17 09:44 | XMS_ITS | Encounter Summary ---
Author Organization [facility] Address [facility] [place] [address] Care Team Providers Care Tube Winder Name Role Phone Sherri Fisher JYOTSNA Primary Care Provider [phone] Encounter Details Date Type Department Care Team (Late st Contact Info) Description 08/09/2023 Organic Motion Message Enc [facility] Medical Group Orthopedic & Sports Medicine - [place] [address] [place] [address] Branden Salgado MD [address] [place] [address] Appointment for joint replacement Social History Tobacco Use Types Packs/Day Years Used Date Smoking Tobacco: Former Cigarettes 1.5 22 1 984 - 04/18/2005 Passive Smoke Exposure: Past Smokeless Tobacco: Never Comments:no longer smoker//v apes, Provider to [place] Alcohol Use Standard Drinks/Week Comments Yes 6.7 [...] Sex Assigned at Male 06/06/2024 2:33 PM CATTLE DEALER Legal Sex Male 4:17 PM CDT Gender Identity Male 06/01/2021 4:37 AM CATTLE DEALER Sexual Orientation Straight 06/01/2021 4: 37 AM CATTLE DEALER documented as of this encounter Progress Notes [...] st Contact Info) Description 04/05/2025 9:00 AM CATTLE DEALER Office Visit [facility] Medical Group Orthopedic & Sports Medicine - [place] [address] [place] [address] Raul Torres MD [address] [place] [address] documented as of this encounter Visit Diagnoses Not on filedocumented in this encounter Additional Health Concerns Assessment Noted Time PHQ-9 Depression Total Score: 5 07/12/19 24 12:13 PM CDT documented as of this encounter Care Teams Tube Winder Relationship Specialty Start Date End Date Sherri Fisher FNP [address] [place] [address] PCP - General Nurse Practitioner Family 12/20/18 documented as of this encounter
--- OUTSIDE RECORDS SUMMARY | 2025-01-17 09:44 | XMS_ITS | Encounter Summary ---
Author Organization [facility] Address [facility] [place] [address] Care Team Providers Care Bank Sales And Service Manager Name Role Phone Sherri Fisher Primary Care Provider [phone] Encounter Details Date Type Department Care Team (Late st Contact Info) Description 06/09/2022 SongAftert Message Enc [facility] Medical Group Family & Internal Medicine [facility] [address] [place] [address] Sherri Fisher FNP [address] [place], [place] [phone] Arthritis meds Social History Tobacco Use Types [...] Sex Assigned at Male 06/06/2024 2:33 PM MOOSE HUNTER Legal Sex Male 4:17 PM CDT Gender Identity Male 06/01/2021 4:37 AM MOOSE HUNTER Sexual Orientation Straight 06/01/2021 4: 37 AM MOOSE HUNTER documented as of this encounter Plan of Treatment Upcoming Encounters Date Type Department Care Team (Late st Contact Info) Description 04/05/2025 9:00 AM MOOSE HUNTER Office Visit [facility] Medical Group Orthopedic & Sports Medicine - [place] [address] [place] [address] Raul Torres MD [address] [place] [address] documented as of this encounter Visit Diagnoses Not on filedocumented in this encounter Additional Health Concerns Infection Onset Date Last Indicated Resolved Time COVID-19 Rule Out 04/20/2023 04/20/2023 04/20/2023 2:48 PM MOOSE HUNTER Influenza - Seasonal 04/20/2023 04/20/2023 024 12:32 AM MOOSE HUNTER Assessment Noted Time PHQ-9 Depression Total Score: 2 10/03/19 21 11:46 AM CDT documented as of this encounter Care Teams Bank Sales And Service Manager Relationship Specialty Start Date End Date Sherri Fisher FNP [address] [place] [address] PCP - General Nurse Practitioner Family 12/20/18 documented as of this encounter
--- OUTSIDE RECORDS SUMMARY | 2025-01-17 09:44 | XMS_ITS | Clinical Summary ---
Author Organization [facility] Address [address] [facility] Attn: Epic Prelude ADT [place] [address] Care Team Providers Care Technician Helper Instrument Name Role Phone Unavailable Primary Care Provider Unavailabl e Social History Tobacco Use Types Packs/Day Years Used Date Smoking Tobacco: Never Assessed Sex and Gender Information Value Date Recorded Sex Assigned at Not on file Legal Sex Male 4:54 AM UNIVERSAL BANKER Gender Identity Not on file Sexual Orientation [...]
--- OUTSIDE RECORDS SUMMARY | 2025-01-17 09:44 | XMS_ITS | Encounter Summary ---
Author Organization [facility] Address [facility] [place] [address] Care Team Providers Care Starbucks Barista Name Role Phone Sherri Fisher JYOTSNA Primary Care Provider [phone] Encounter Details Date Type Department Care Team (Late st Contact Info) Description 09/01/2023 Sumavisos Message Enc [facility] [address] [address] Mychart, [facility] Provider APPT Social History Tobacco Use Types Packs/Day Years Used Date Smoking Tobacco: Former Cigarettes 1.5 22 1 984 - 04/18/2005 Passive Smoke Exposure: Past Smokeless Tobacco: Never Comments:no longer smoker//v apes, Provider to [place] Alcohol Use Standard Drinks/Week Comments Yes [...] Sex Assigned at Male 06/06/2024 2:33 PM FOOD PRODUCTS TESTER Legal Sex Male 4:17 PM CDT Gender Identity Male 06/01/2021 4:37 AM FOOD PRODUCTS TESTER Sexual Orientation Straight 06/01/2021 4: 37 AM FOOD PRODUCTS TESTER documented as of this encounter Plan of Treatment Upcoming Encounters Date Type Department Care Team (Late st Contact Info) Description 04/05/2025 9:00 AM FOOD PRODUCTS TESTER Office Visit [facility] Medical Group Orthopedic & Sports Medicine - [place] [address] [place] [address] Raul Torres MD [address] [place] [address] documented as of this encounter Visit Diagnoses Not on filedocumented in this encounter Additional Health Concerns Assessment Noted Time PHQ-9 Depression Total Score: 5 07/12/19 24 12:13 PM CDT documented as of this encounter Care Teams Starbucks Barista Relationship Specialty Start Date End Date Sherri Fisher FNP [address] [place] [address] PCP - General Nurse Practitioner Family 12/20/18 documented as of this encounter
--- OUTSIDE RECORDS SUMMARY | 2025-01-17 09:44 | XMS_ITS | Encounter Summary ---
Author Organization [facility] Address [facility] [place] [address] Care Team Providers Care Seafood Specialist Name Role Phone Sherri Fisher JYOTSNA Primary Care Provider [phone] Encounter Details Date Type Department Care Team (Late st Contact Info) Description 09/07/2024 iHealtht Message Enc [facility] Medical Group Orthopedic & Sports Medicine - [place] [address] [place] [address] Raul Torres MD [address] [place] [address] Upcoming appt Social History Tobacco Use Types Packs/Day Years Used Date Smoking Tobacco: Former Cigarettes 1.5 22 1 984 - 04/18/2005 Passive Smoke Exposure: Past Smokeless Tobacco: Never Comments:no longer smoker//v apes, Provider to [place] Alcohol Use Standard Drinks/Week Comments Yes 6.7 [...] Sex Assigned at Male 06/06/2024 2:33 PM CANAL EQUIPMENT MAINTENANCE SUPERVISOR Legal Sex Male 4:17 PM CDT Gender Identity Male 06/01/2021 4:37 AM CANAL EQUIPMENT MAINTENANCE SUPERVISOR Sexual Orientation Straight 06/01/2021 4: 37 AM CANAL EQUIPMENT MAINTENANCE SUPERVISOR documented as of this encounter Functional Status [...] st Contact Info) Description 04/05/2025 9:00 AM CANAL EQUIPMENT MAINTENANCE SUPERVISOR Office Visit [facility] Medical Group Orthopedic & Sports Medicine - [place] [address] [place] [address] Raul Torres MD [address] [place] [address] documented as of this encounter Goals Goal [...] documented as of this encounter Care Teams Seafood Specialist Relationship Specialty Start Date End Date Sherri Fisher FNP [address] [place] [address] PCP - General Nurse Practitioner Family 12/20/18 documented as of this encounter
--- OUTSIDE RECORDS SUMMARY | 2025-01-17 09:44 | XMS_ITS | Encounter Summary ---
Author Organization [facility] Address [address] [place] [address] Care Team Providers Care Stunner Name Role Phone Unavailable Primary Care Provider Unavailabl e Encounter Details Date Type Department Care Team (Late st Contact Info) Description 07/02/2004 Outpatient Historical [facility] Medicine [address] [place] [phone] Larry Patel, DO [address] [facility] [place] [phone] Social History Tobacco Use Types Packs/Day Years Used Date Smoking Tobacco: Never Assessed Sex and Gender Information Value Date Recorded Sex Assigned at Not on file Legal Sex Male 4:54 AM DEHYDRATOR TENDER Gender Identity Not on file Sexual Orientation Not on file documented as of this encounter Plan of Treatment Not on file documented as of this encounter Visit Diagnoses Not on filedocumented in this encounter
--- OUTSIDE RECORDS SUMMARY | 2025-01-17 09:44 | XMS_ITS | Clinical Summary ---
Author Organization [facility] Address [address] [place], [facility] [address] [place] [address] Phone Care Team Providers Care Veneer Jointer Offbearer Name Role Phone Sherri Fisher APRN, AUTOMATIC LATHE OPERATOR Primary Care Provider Social History Tobacco Use Types Packs/Day Years Used Date Smoking Tobacco: Never Assessed Sex and Gender Information Value Date Recorded Sex Assigned at Not on file Legal Sex Male 10:11 AM FIRE MANAGEMENT OFFICER Gender Identity Not on file Sexual [...] (1 of 2) 2019 Influenza Immunization (#1) 2024 SARS-COV-2 Immunization ( season) 2024 Colonoscopy 07/07/2030 07/07/2020 Colorectal Cancer Screening [...] Recently Relevant to Health Maintenance Care Teams Veneer Jointer Offbearer Relationship Specialty Start Date End Date Sherri Fisher, CHIEF OF HARBOR PATROL, AUTOMATIC LATHE OPERATOR [address] [place] [address] PCP - General Internal Medicine 05/27/20
--- OUTSIDE RECORDS SUMMARY | 2025-01-17 09:44 | XMS_ITS | Encounter Summary ---
Author Organization [facility] Address [address] [place] [address] Care Team Providers Care Conditioner Tumbler Operator Name Role Phone Unavailable Primary Care Provider Unavailabl e Encounter Details Date Type Department Care Team (Late st Contact Info) Description 11/30/2004 Outpatient Historical [facility] Medicine [address] [place] [phone] Larry Patel, DO [address] [facility] [place] [phone] Social History Tobacco Use Types Packs/Day Years Used Date Smoking Tobacco: Never Assessed Sex and Gender Information Value Date Recorded Sex Assigned at Not on file Legal Sex Male 4:54 AM CHRISTMAS BELL RINGER Gender Identity Not on file Sexual Orientation Not on file documented as of this encounter Plan of Treatment Not on file documented as of this encounter Visit Diagnoses Not on filedocumented in this encounter
--- OUTSIDE RECORDS SUMMARY | 2025-01-17 09:44 | XMS_ITS | Encounter Summary ---
Author Organization [facility] Address [facility] [place] [address] Care Team Providers Care Pressure Sealer And Tester Name Role Phone Sherri Fisher JYOTSNA Primary Care Provider [phone] Encounter Details Date Type Department Care Team (Late st Contact Info) Description 11/21/2023 Drop 'til you Shopt Message Enc [facility] Medical Group Orthopedic & Sports Medicine - [place] [address] [place], [place] [phone] Branden Salgado MD [address] [place] [address] November 22 appt Social History Tobacco Use Types Packs/Day Years Used Date Smoking Tobacco: Former Cigarettes 1.5 22 1 984 - 04/18/2005 Passive Smoke Exposure: Past Smokeless Tobacco: Never Comments:no longer smoker//v apes, Provider to [employer] Alcohol Use Standard Drinks/Week Comments Yes 6.7 [...] Sex Assigned at Male 06/06/2024 2:33 PM TANK TERMINAL GAUGER Legal Sex Male 4:17 PM CDT Gender Identity Male 06/01/2021 4:37 AM TANK TERMINAL GAUGER Sexual Orientation Straight 06/01/2021 4: 37 AM TANK TERMINAL GAUGER documented as of this encounter Functional Status [...] st Contact Info) Description 04/05/2025 9:00 AM TANK TERMINAL GAUGER Office Visit [facility] Medical Group Orthopedic & Sports Medicine - [place] [address] [place] [address] Raul Torres MD [address] [place] [address] documented as of this encounter Goals Goal [...] documented as of this encounter Care Teams Pressure Sealer And Tester Relationship Specialty Start Date End Date Sherri Fisher FNP [address] [place] [address] PCP - General Nurse Practitioner Family 12/20/18 documented as of this encounter
--- OUTSIDE RECORDS SUMMARY | 2025-01-17 09:44 | XMS_ITS | Encounter Summary ---
Author Organization [facility] Address [facility] [place] [address] Care Team Providers Care Signals Intelligence Analyst Name Role Phone Sherri Fisher JYOTSNA Primary Care Provider [phone] Encounter Details Date Type Department Care Team (Latest Contact Info) Description 01/15/2025 OBMedical Message Enc [facility] hayes [address] [facility] [place] [address] [place], [place] [phone] Nguyen Goncalves MD Three [facility] [address] [place] [address] EKG /low heart rate upcoming arthroplasty Social History Tobacco Use Types Packs/Day Years Used Date Smoking Tobacco: Former Cigarettes 1.5 22 1 984 - 04/18/2005 Passive Smoke Exposure: Past Smokeless Tobacco: Never Comments:no longer smoker//v apdon, Provider to [facility] Alcohol Use Standard Drinks/Week Comments Yes 7.7 [...] Sex Assigned at Male 06/06/2024 2:33 PM PERSONAL CHEF Legal Sex Male 4:17 PM CDT Gender Identity Male 06/01/2021 4:37 AM PERSONAL CHEF Sexual Orientation Straight 06/01/2021 4: 37 AM PERSONAL CHEF documented as of this encounter Functional Status [...] st Contact Info) Description 04/05/2025 9:00 AM PERSONAL CHEF Office Visit [facility] Medical Group Orthopedic & Sports Medicine - [place] [address] [place] [address] Raul Torres MD [address] [place] [address] documented as of this encounter Goals Goal [...] documented as of this encounter Care Teams Signals Intelligence Analyst Relationship Specialty Start Date End Date Sherri Fisher FNP [address] [place] [address] PCP - General Nurse Practitioner Family 12/20/18 documented as of this encounter
--- OUTSIDE RECORDS SUMMARY | 2025-01-17 09:44 | XMS_ITS | Encounter Summary ---
Author Organization [facility] Address [facility] [place] [address] Care Team Providers Care Wet Chemistry Analyst Name Role Phone Sherri Fisher JYOTSNA Primary Care Provider [phone] Encounter Details Date Type Department Care Team (Late st Contact Info) Description 11/14/2024 [employer] Message Enc [facility] Medical Group Orthopedic & Sports Medicine - [place] [address] [place] [address] Raul Torres MD [address] [place] [address] Knee/ankle issues Social History Tobacco Use Types Packs/Day Years Used Date Smoking Tobacco: Former Cigarettes 1.5 22 1 984 - 04/18/2005 Passive Smoke Exposure: Past Smokeless Tobacco: Never Comments:no longer smoker//v apes, Provider to [place] Alcohol Use Standard Drinks/Week Comments Yes 6.7 [...] Sex Assigned at Male 06/06/2024 2:33 PM PSYCHIATRIC ARNP Legal Sex Male 4:17 PM CDT Gender Identity Male 06/01/2021 4:37 AM PSYCHIATRIC ARNP Sexual Orientation Straight 06/01/2021 4: 37 AM PSYCHIATRIC ARNP documented as of this encounter Functional Status [...] st Contact Info) Description 04/05/2025 9:00 AM PSYCHIATRIC ARNP Office Visit [facility] Medical Group Orthopedic & Sports Medicine - [place] [address] [place] [address] Raul Torres MD [address] [place] [address] documented as of this encounter Goals Goal [...] documented as of this encounter Care Teams Wet Chemistry Analyst Relationship Specialty Start Date End Date Sherri Fisher FNP [address] [place] [address] PCP - General Nurse Practitioner Family 12/20/18 documented as of this encounter
--- OUTSIDE RECORDS SUMMARY | 2025-01-17 09:44 | XMS_ITS | Encounter Summary ---
Author Organization [facility] Address [facility] [place] [address] Care Team Providers Care Steam Trap Man Name Role Phone Sherri Fisher JYOTSNA Primary Care Provider [phone] Reason for Visit * Reason Onset Date Comments Surgical Clearance 01/15/2025 Encounter Details Date Type Department Care Team (Late st Contact Info) Description 01/15/2025 Telephone [facility] THREE [facility] [place] [address] [place], [place] [phone] Nguyen Goncalves MD Three [facility] [address] [place] [address] Surgical Clearance Social History Tobacco Use Types Packs/Day Years Used Date Smoking Tobacco: Former Cigarettes 1.5 22 1 984 - 04/18/2005 Passive Smoke Exposure: Past Smokeless Tobacco: Never Comments:no longer smoker//v apes, Provider to [place] Alcohol Use Standard Drinks/Week Comments Yes 7.7 [...] Sex Assigned at Male 06/06/2024 2:33 PM SUPERVISOR HOME RESTORATION SERVICE Legal Sex Male 4:17 PM CDT Gender Identity Male 06/01/2021 4:37 AM SUPERVISOR HOME RESTORATION SERVICE Sexual Orientation Straight 06/01/2021 4: 37 AM SUPERVISOR HOME RESTORATION SERVICE documented as of this encounter Functional Status [...] Donnelly RN Active documented in this encounter Progress Notes * Isabel Abel - 01/16/2025 8:19 AM CDT Letter Faxed. * Kit Mora NP - 01/15/2025 6:51 PM CDT EKG reviewed, Sinus bradycardia Called patient, he denies any concerning symptoms Able to achieve >4 mets activity Low cardiac risk * Mariah Troncoso RN - 01/15/2025 2:26 PM CDT EKG result sent to Aide to scan into patient chart. * Isabel Abel - 01/15/2025 12:23 PM CDT Received a fax requesting clearance for Right Endoscopic Carpal Tunnnel Release and Possible Open Right Cubital Tunnel Arthroplasty scheduled on 01/17/25. EKG Results from [facility] emailed to Mariah. Pt is scheduled for 01/18 to come in and see Dr. Goncalves and told me on the phone he would have to push surgery back until he saw her. Message to MANAGER EMPLOYMENT Fax Letter to [phone] documented in this encounter Plan of Treatment Upcoming Encounters Date Type Department Care Team (Late st Contact Info) Description 04/05/2025 9:00 AM SUPERVISOR HOME RESTORATION SERVICE Office Visit [facility] Medical Group Orthopedic & Sports Medicine - [place] [address] [place] [address] Raul Torres MD [address] [place] [address] documented as of this encounter Goals Goal [...] documented as of this encounter Care Teams Steam Trap Man Relationship Specialty Start Date End Date Sherri Fisher FNP [address] [place] [address] PCP - General Nurse Practitioner Family 12/20/18 documented as of this encounter
--- OUTSIDE RECORDS SUMMARY | 2025-01-17 09:44 | XMS_ITS | Encounter Summary ---
Author Organization [facility] Address [facility] [place] [address] Care Team Providers Care Upfitter Name Role Phone Sherri Fisher Primary Care Provider [phone] Encounter Details Date Type Department Care Team (Late st Contact Info) Description 12/03/2024 [employer] Message Enc [facility] Medical Group Family & Internal Medicine [facility] [address] [place] [address] Sherri Fisher FNP [address] [place], [place] [phone] Tetanus shot Social History Tobacco Use Types Packs/Day Years Used Date Smoking Tobacco: Former Cigarettes 1.5 22 1 984 - 04/18/2005 Passive Smoke Exposure: Past Smokeless Tobacco: Never Comments:no longer smoker//v apes, Provider to [place] Alcohol Use Standard Drinks/Week Comments Yes 7.7 [...] Sex Assigned at Male 06/06/2024 2:33 PM COIN MACHINE SERVICER REPAIRER Legal Sex Male 4:17 PM CDT Gender Identity Male 06/01/2021 4:37 AM COIN MACHINE SERVICER REPAIRER Sexual Orientation Straight 06/01/2021 4: 37 AM COIN MACHINE SERVICER REPAIRER documented as of this encounter Functional Status [...] st Contact Info) Description 04/05/2025 9:00 AM COIN MACHINE SERVICER REPAIRER Office Visit [facility] Medical Group Orthopedic & Sports Medicine - [place] [address] [place] [address] Raul Torres MD [address] [place] [address] documented as of this encounter Goals Goal [...] documented as of this encounter Care Teams Upfitter Relationship Specialty Start Date End Date Sherri Fisher FNP [address] [place] [address] PCP - General Nurse Practitioner Family 12/20/18 documented as of this encounter
--- OUTSIDE RECORDS SUMMARY | 2025-01-17 09:44 | XMS_ITS | Encounter Summary ---
Author Organization [facility] Address [facility] [place] [address] Care Team Providers Care Shank Maker Name Role Phone Sherri Fisher JYOTSNA Primary Care Provider [phone] Encounter Details Date Type Department Care Team (Late st Contact Info) Description 09/19/2023 [employer] Message Enc [facility] Medical Group Orthopedic & Sports Medicine - [place] [address] [place] [address] Raul Torres MD [address] [place] [address] Appointment on Social History Tobacco Use Types Packs/Day Years Used Date Smoking Tobacco: Former Cigarettes 1.5 22 1 984 - 04/18/2005 Passive Smoke Exposure: Past Smokeless Tobacco: Never Comments:no longer smoker//v apdon, Provider to [place] Alcohol Use Standard Drinks/Week Comments Yes 6.7 [...] Sex Assigned at Male 06/06/2024 2:33 PM MORTGAGE CLERK Legal Sex Male 4:17 PM CDT Gender Identity Male 06/01/2021 4:37 AM MORTGAGE CLERK Sexual Orientation Straight 06/01/2021 4: 37 AM MORTGAGE CLERK documented as of this encounter Plan of Treatment Upcoming Encounters Date Type Department Care Team (Late st Contact Info) Description 04/05/2025 9:00 AM MORTGAGE CLERK Office Visit [facility] Medical Group Orthopedic & Sports Medicine - [place] [address] [place] [address] Raul Torres MD [address] [place] [address] documented as of this encounter Visit Diagnoses Not on filedocumented in this encounter Additional Health Concerns Assessment Noted Time PHQ-9 Depression Total Score: 5 07/12/19 24 12:13 PM CDT documented as of this encounter Care Teams Shank Maker Relationship Specialty Start Date End Date Sherri Fisher FNP [address] [place] [address] PCP - General Nurse Practitioner Family 12/20/18 documented as of this encounter
--- OUTSIDE RECORDS SUMMARY | 2025-01-17 09:44 | XMS_ITS | Encounter Summary ---
Author Organization [facility] Address [address] [place] [address] Care Team Providers Care Stake Driver Name Role Phone Unavailable Primary Care Provider Unavailabl e Encounter Details Date Type Department Care Team (Late st Contact Info) Description 04/02/2005 Outpatient Historical [facility] Medicine [address] [place] [phone] Larry Patel, DO [address] [facility] [place] [phone] Social History Tobacco Use Types Packs/Day Years Used Date Smoking Tobacco: Never Assessed Sex and Gender Information Value Date Recorded Sex Assigned at Not on file Legal Sex Male 4:54 AM AIRCRAFT ENGINE TECHNICIAN Gender Identity Not on file Sexual Orientation Not on file documented as of this encounter Plan of Treatment Not on file documented as of this encounter Visit Diagnoses Not on filedocumented in this encounter
--- OUTSIDE RECORDS SUMMARY | 2025-01-17 09:44 | XMS_ITS | Encounter Summary ---
Author Organization [facility] Address [address] [place] [address] Care Team Providers Care Black Studies Professor Name Role Phone Unavailable Primary Care Provider Unavailabl e Encounter Details Date Type Department Care Team (Late st Contact Info) Description 10/14/2003 Outpatient Historical [facility] Medicine [address] [place] [address] [place] Social History Tobacco Use Types Packs/Day Years Used Date Smoking Tobacco: Never Assessed Sex and Gender Information Value Date Recorded Sex Assigned at Not on file Legal Sex Male 4:54 AM CRIMINAL PSYCHOLOGIST Gender Identity Not on file Sexual Orientation Not on file documented as of this encounter Plan of Treatment Not on file documented as of this encounter Visit Diagnoses Not on filedocumented in this encounter
--- OUTSIDE RECORDS SUMMARY | 2025-01-17 09:44 | XMS_ITS | Encounter Summary ---
Author Organization [facility] Address [address] [place] [address] Care Team Providers Care Diabetes Solutions Specialist Name Role Phone Unavailable Primary Care Provider Unavailabl e Encounter Details Date Type Department Care Team (Late st Contact Info) Description 02/27/2004 Outpatient Historical [facility] Medicine [address] [place] [phone] Larry Patel, DO 1237 [facility] [place] [phone] Social History Tobacco Use Types Packs/Day Years Used Date Smoking Tobacco: Never Assessed Sex and Gender Information Value Date Recorded Sex Assigned at Not on file Legal Sex Male 4:54 AM CHIEF CATALYST OPERATOR Gender Identity Not on file Sexual Orientation Not on file documented as of this encounter Plan of Treatment Not on file documented as of this encounter Visit Diagnoses Not on filedocumented in this encounter
--- OUTSIDE RECORDS SUMMARY | 2025-01-17 09:44 | XMS_ITS | Encounter Summary ---
Author Organization [facility] Address [facility] [place] [address] Care Team Providers Care Equipment Maintenance Technician Name Role Phone Sherri Fisher JYOTSNA Primary Care Provider [phone] Encounter Details Date Type Department Care Team (Late st Contact Info) Description 07/09/2023 Fisher Coachworkst Message Enc [facility] Orthopedic & Sports Medicine - [place] [address] [place] [address] Raul Torres MD [address] [place] [address] Left leg pain Social History Tobacco Use [...] Sex Assigned at Male 06/06/2024 2:33 PM PARTS SALES REPRESENTATIVE Legal Sex Male 4:17 PM CDT Gender Identity Male 06/01/2021 4:37 AM PARTS SALES REPRESENTATIVE Sexual Orientation Straight 06/01/2021 4: 37 AM PARTS SALES REPRESENTATIVE documented as of this encounter Functional Status * Over the past 2 weeks, how often have you been bothered by any of the following problems? Question Answer Date of Assessment Author Status Little interest or pleasure in doing things Several days 07/12/2023 12:13 PM CDT Sherri Fisher, DIVISION PLANT ENGINEER Acti ve Feeling down, depressed, or hopeless Not at all 07/12/2023 12:13 PM CDT Sherri Fisher, F SPRINKLER DRIVER Active Patient Health Questionnaire-2 Score 1 07/12/2023 12:13 PM CDT Sherri Fisher FN P Active * Question Answer Date of Assessment Author Status Trouble falling or staying asleep, or sleeping too much Several days 07/12/2023 12:13 PM CDT Sherri Fisher, DIVISION PLANT ENGINEER Active Feeling tired or having little energy Several days 07/12/2023 12:13 PM CDT Eliud Fisheranda, DIVISION PLANT ENGINEER Active Poor appetite or overeating Not at all 07/12/2023 12:13 PM CDT Sherri Fisher, DIVISION PLANT ENGINEER Active Feeling bad about yourself - or that you are a failure or have let yourself or your family down Several days 07/12/2023 12:13 PM CDT Eliud Fisheranda, DIVISION PLANT ENGINEER Active Trouble concentrating on things, such as reading the newspaper or watching television Several days 07/12/2023 12:13 PM CDT Eliud Fisheranda, DIVISION PLANT ENGINEER Active Moving or speaking so slowly that other people could have noticed? Or the opposite - being so fidgety or restless that you have been moving around a lot more than usual. Not at all 07/12/2023 12:13 PM CDT Sherri Fisher, DIVISION PLANT ENGINEER Active Thoughts that you would be better off or hurting yourself in some way Not at all 07/12/2023 12:13 PM CDT Sherri Fisher, DIVISION PLANT ENGINEER Active Patient Health Questionnaire-9 Score 5 07/12/2023 12:13 PM CDT Sherri Fisher, DIVISION PLANT ENGINEER Active * If you checked off any [...] st Contact Info) Description 04/05/2025 9:00 AM PARTS SALES REPRESENTATIVE Office Visit [facility] - [place] [address] [place] [address] Raul Torres MD [address] [place] [address] documented as of this encounter Visit Diagnoses Not on filedocumented in this encounter Additional Health Concerns Assessment Noted Time PHQ-9 Depression Total Score: 2 10/03/19 21 11:46 AM CDT documented as of this encounter Care Teams Equipment Maintenance Technician Relationship Specialty Start Date End Date Sherri Fisher FNP [address] [place] [address] PCP - General Nurse Practitioner Family 12/20/18 documented as of this encounter
--- OUTSIDE RECORDS SUMMARY | 2025-01-17 09:44 | XMS_ITS | Clinical Summary ---
Author Organization [facility] Address [address] [place] [address] Care Team Providers Care Customer Counter Associate Name Role Phone Sherri Fisher JYOTSNA Primary Care Provider [phone] Allergies No known active allergies Medications lansoprazole [...] Encounters Date Type Department Care Team Description 01/15/2025 Telephone [facility] [address] [address] Nguyen Goncalves MD Surgical Clearance 01/15/2025 MyChart Message Enc [facility] [address] Nguyen Goncalves MD EKG /low heart rate upcoming arthroplasty 01/14/2025 MyChart Message Enc [facility] Family & Internal Medicine [address] [phone] Sherri Fisher, JYOTSNA EKG before surgery 01/08/2025 Scan [facility] [address] Scanned, Doc Pccl 12/18/2024 Scan [facility] Scanned, Doc Med Group EMG (SCAN) 12/03/2024 MyChart Message Enc [facility] Medicine [address] [phone] Sherri Fisher, SUPERVISOR DISPLAY FABRICATION Tetanus shot 11/30/2024 10:00 AM CDT Office Visit [facility] Orthopedic [facility] Sports Medicine [facility] [address] [place] [address] Raul Torres MD Follow Up (Bilateral ankle ) 11/30/2024 Travel 11/28/2024 Orders Only [facility] [address] [place] [address] Raul Torres MD 11/27/2024 10:20 AM CDT Office Visit [facility] Internal Medicine [address] [phone] Sherri Fisher FNP Hand Pain (Patient presenting to the office today c/o B/L hand pain has been going for awhile but recently going into the wrist - throbbing uses ice and Voltaren to help with the pain ) 11/27/2024 Travel 11/16/2024 MyChart Message Enc [facility] Medicine [address] [phone] Sherri Fisher FNP Sinus infection/ Covid 11/15/2024 Scan [facility] Scanned, Doc Med Group 11/14/2024 MyChart Message Enc [facility] Orthopedic [facility] Sports Medicine [facility] [address] [place] [address] Raul Torres MD Knee/ankle issues from Last 3 Months Immunizations Immunization Administration [...] Given: Yes Comments:no longer smoker//vapes, Provider to [facility] Alcohol Use Standard Drinks/Week Comments Yes 7.7 [...] Sex Assigned at Male 06/06/2024 2:33 PM SNUFF GRINDER Legal Sex Male 4:17 PM CDT Gender Identity Male 06/01/2021 4:37 AM SNUFF GRINDER Sexual Orientation Straight 06/01/2021 4: 37 AM SNUFF GRINDER Last Filed Vital Signs Vital Sign Reading [...] st Contact Info) Description 04/05/2025 9:00 AM SNUFF GRINDER Office Visit [facility] - [place] [address] [place] [address] Raul Torres MD [address] [place] [address] Health Maintenance Due Date Last Done Comments Hepatitis B Vaccines (1 of 3 - 19+ 3-dose series) 1989 COVID-19 Vaccine (2024-2 6 season) 2024 07/06/2020, 06/15/2020 Influenza Adult (#1) 2025 03/26/2022, 03/30/2021, 05/15/2020 Annual Physical 07/13/2025 07/13/2024, 07/26/2022, 03/30/2021 Colorectal Cancer Screening Colonoscopy (10 Years) 07/07/2030 07/07/2020 DTaP, Tdap and Td Vaccines ( 2 - Td or Tdap) 10/02/2030 10/02/2020 Hepatitis C Completed 03/30/2021 Zoster Vaccines Completed 06/26/2022, 03/26/2022 PHQ-2 (Physician [place]) Completed 09/27/2024 Pneumococcal Vaccine: 50+ Years Completed [...] Spann, RN Medical Devices Implanted Type Area Steam Press Operator Device Identifier Shelf Expiration Date Model / Serial / Lot Attune Tibial Base Affixium Fixed Bearing Implanted:Qty : 1 on 10/13/2023 by Branden Salgado MD at [facility] Knee Components Left: Knee DEPUY SYNTHES [id number] 09/15/2032 1506-21- 010 / / [id number] Attune Femoral Porocoat Cruciate Retaining Implanted:Qty : 1 on 10/13/2023 by Branden Salgado MD at [facility] Knee Components Left: Knee DEPUY SYNTHES [id number] 08/15/2032 1504-01- 109 / / [id number] Attune Tibial Insert Fixed Bearing Medial Stabilized Implanted:Qty : 1 on 10/13/2023 by Branden Salgado MD at [facility] Knee Components Left: Knee DEPUY SYNTHES [id number] 08/15/2030 1518-20- 910 / / [id number] Procedures Procedure Name Priority Date/Time Associated Diagnosis Comments ECG GENERIC (SCAN ORDER) Routine 01/08/2025 EMG GENERIC (SCAN ORDER) 12/18/2024 OXR RT ANKLE M3V Routine 11/30/2024 10:1 5 AM CDT Bilateral ankle pain, unspecified chronicity OXR LT ANKLE M3V Routine 11/30/2024 10:1 5 AM CDT Bilateral ankle pain, unspecified chronicity HEMOGLOBIN, GLYCOSYLATED Routine 11/27/2024 10:47 AM CDT Elevated fasting glucose COLLECT.CAPILLARY (FNGR,HEEL,EAR) Routine 11/27/2024 10:19 AM CDT Elevated fasting glucose HEPATITIS C ANTIBODY Routine 03/30/2021 12:03 PM SNUFF GRINDER Need for hepatitis C screening test COLONOSCOPY GENERIC (SCAN ORDER) 07/07/2020 from Last 3 Months or Most Recently Relevant to Health Maintenance Results * ECG (01/08/2025) us Doc Pccl Scanned SCANNING Final Result [facility] * EMG GENERIC (SCAN ORDER) (12/18/2024) 12/18/2024 [...] and Achilles insertion. Mortise joint spacing well-preserved us Raul Torres MD GENERAL IMAGING Final Result [...] and Achilles insertion. Mortise joint spacing well-preserved us Raul Torres MD GENERAL IMAGING Final Result * HEMOGLOBIN, GLYCOSYLATED (11/27/2024 10:47 AM CDT) HGB A1C 5.5 % [facility] 11/27/2024 10:4 7 AM CDT Sherri Fisher [facility] Final Result Performing Organization Address City/[facility]/ZIP Co de Phone Number [facility] [address] [place] [address], * HEPATITIS C ANTIBODY (03/30/2021 12:03 PM SNUFF GRINDER) HEPATITIS C AB NON-REACTI VE NON-REACT STEFFI 03/30/2021 10:02 PM SNUFF GRINDER [facility] Comment: ANTIBODIES TO HCV NOT DETECTED. DOES NOT EXCLUDE THE POSSIBILITY OF EXPOSURE TO HCV. 03/30/2021 12:0 3 PM SNUFF GRINDER Sherri Cooper[employer] [facility] Final Result [facility] [address] [place] [address], [id number] * COLONOSCOPY GENERIC (07/07/2020) 07/07/2020 Narrative 07/07/2020 Ordered by an unspecified provider. us Documents Scanned SCANNING Final Result from Last 3 Months or Most Recently Relevant to Health Maintenance Insurance [employer] Advance Directives * Full Code (Latest Code Status on File) Date Activated Date Inactivated Comments 10/15/2023 8:52 AM Care Teams Customer Counter Associate Relationship Specialty Start Date End Date Sherri Fisher FNP [facility] [place] [address] PCP - General Nurse Practitioner Family 12/20/18
--- OUTSIDE RECORDS SUMMARY | 2025-01-17 09:44 | XMS_ITS | Encounter Summary ---
Author Organization [facility] Address [facility] [place] [address] Care Team Providers Care Housekeeping Staff Name Role Phone Sherri Fisher JYOTSNA Primary Care Provider [phone] Encounter Details Date Type Department Care Team (Late st Contact Info) Description 08/27/2024 [email or web address] Message Enc [facility] Orthopedic & Sports Medicine - [place] [address] [place], [place] [phone] Branden Salgado MD [address] [place] [address] Upcoming hand Surgery Social History Tobacco Use Types Packs/Day Years Used Date Smoking Tobacco: Former Cigarettes 1.5 22 1 984 - 04/18/2005 Passive Smoke Exposure: Past Smokeless Tobacco: Never Comments:no longer smoker//v apes, Provider to [place] Alcohol Use Standard Drinks/Week Comments Yes 6.7 [...] Sex Assigned at Male 06/06/2024 2:[address] JUDGE Legal Sex Male 4:17 PM CDT Gender Identity Male 06/01/2021 4:[address] JUDGE Sexual Orientation Straight 06/01/2021 4: [address] JUDGE documented as of this encounter Functional Status [...] st Contact Info) Description 04/05/2025 9:[address] JUDGE Office Visit [facility] Orthopedic & Sports Medicine - [place] [address] [place] [address] Raul Torres MD [address] [place] [address] documented as of this encounter Goals Goal [...] documented as of this encounter Care Teams Housekeeping Staff Relationship Specialty Start Date End Date Sherri Fisher FNP [address] [place] [address] PCP - General Nurse Practitioner Family 12/20/18 documented as of this encounter
--- OUTSIDE RECORDS SUMMARY | 2025-01-17 09:44 | XMS_ITS | Encounter Summary ---
Author Organization [facility] Address [facility] [place] [address] Care Team Providers Care Division Traffic Superintendent Name Role Phone Sherri Fisher JYOTSNA Primary Care Provider [phone] Encounter Details Date Type Department Care Team (Late st Contact Info) Description 01/08/2025 Scan [facility], [address] [address] Scanned, Doc Pccl Social History Tobacco Use Types Packs/Day Years Used Date Smoking Tobacco: Former Cigarettes 1.5 22 1 984 - 04/18/2005 Passive Smoke Exposure: Past Smokeless Tobacco: Never Comments:no longer smoker//v apes, Provider to [employer] Alcohol Use Standard Drinks/Week Comments Yes 7.7 [...] Sex Assigned at Male 06/06/2024 2:33 PM WOODS LABORER Legal Sex Male 4:17 PM CDT Gender Identity Male 06/01/2021 4:37 AM WOODS LABORER Sexual Orientation Straight 06/01/2021 4: 37 AM WOODS LABORER documented as of this encounter Functional Status [...] st Contact Info) Description 04/05/2025 9:00 AM WOODS LABORER Office Visit [facility] Orthopedic & Sports Medicine - [place] [address] [place] [address] Raul Torres MD [address] [place] [address] documented as of this encounter Goals Goal Patient Goal Type Associated Problems Recent Progress Patient-Stated? Author Family - family caregiver with be involved in care transitions and discharge planning Lifestyle No Wiley Spann, RN documented as of this encounter Procedures Procedure Name Priority Date/Time Associated Diagnosis Comments ECG GENERIC (SCAN ORDER) Routine 01/08/2025 documented in this encounter Results * ECG (01/08/2025) us Doc Pccl Scanned SCANNING Final Result [facility] documented in this encounter Visit Diagnoses Not on filedocumented in this encounter Additional Health Concerns Assessment Noted Time PHQ-9 Depression Total Score: 5 07/12/19 24 12:13 PM CDT documented as of this encounter Care Teams Division Traffic Superintendent Relationship Specialty Start Date End Date Sherri Fisher FNP [facility] [place] [address] PCP - General Nurse Practitioner Family 12/20/18 documented as of this encounter
[2025-01-17] MEDS: LACTATED RINGERS 1,000 ML 30 ML IV CONT (09:58)
--- NOTE | 2025-01-17 10:18 | WPDANESEPPF ---
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 Patient Data Age: 54 Gender: M Height: 1.98 m Weight: 115.7 kg Last Vital Signs Temp 97 F L 01/17/25 09:38 Pulse 50 L 01/17/25 09:38 Resp 20 01/17/25 09:38 BP 116/98 H 01/17/25 09:38 Pulse Ox 99 01/17/25 09:38 O2 Del Method Room Air 01/17/25 09:38 Allergies Allergy/AdvReac Type Severity Reaction Status Date / Time No Known Allergies Allergy Mild Verified 01/14/25 15:44 Home Medications ?Medication ?Instructions ?Recorded ?Confirmed ?Type bupropion HCl 150 mg tablet,12 hr 150 mg PO Q12H 06/20/20 01/17/25 History sustained-release famotidine 20 mg tablet (Pepcid) 20 mg PO DAILY PRN acid reflux 06/20/20 01/17/25 History diclofenac potassium 50 mg tablet 50 mg PO TID 08/20/24 01/17/25 History losartan 50 mg tablet 50 mg PO DAILY 08/20/24 01/17/25 History tramadol 50 mg tablet 50 mg PO Q6H PRN pain #12 tabs 09/06/24 01/17/25 Rx ECG: sinus bradycardia Patient hx anesthesia problems: none Family hx anesthesia problems: none Results Review: All pre-operative results and documents have been reviewed as part of the pre-operative evaluation. [facility] Past Medical History Medical History Depression Anxiety Social History Social History (Updated 11/12/24 @ 13:03 by Estefany Dean) Social History: Caffeine-coffee Smoking packs per day: 1.5 Smoking cigarettes per day: 30.0 Years smoked: 20 Smoking pack-years: 30.00 Smoking status: Former smoker Tobacco type: cigarettes Second hand tobacco smoke exposure: Yes Smoking end date: 04/18/04 Alcohol intake: current Drinks per week: 6 Substance use: current Substance use type: marijuana Other substance usage details: Gummies for sleep-occasionally Living arrangements: with family Spiritual care concerns: No Anes - Eval Final PreProcedure Day of Procedure 01/17/25 10:18 Heart: regular rate and rhythm Lungs: clear to auscultation Airway: Mallampati scale class II Neurological: alert and oriented Last oral intake: >/= 8 hours ASA classification: III Anesthetic plan: proceed Anesthesia type and monitoring: monitored anesthesia care Results Review: All pre-operative results and documents have been reviewed as part of the pre-operative evaluation. Informed Consent: The patient's anesthetic plan and its attendant risks and benefits were discussed with the patient/family/POA. Questions were solicited and answers provided to the satisfaction of the patient/family/POA.
[2025-01-17] MEDS: ceFAZolin SODIUM 2 GM/20 ML SW SYRINGE IV PUSH (10:45)
[2025-01-17] MEDS: LIDO 1%/EPINEPHRINE 1:100,000 20 ML VIAL 10 ML INFILTRATE (11:07)
[2025-01-17] MEDS: BUPivacaine HCL 0.5% 10 ML AMP INFILTRATE (11:08)
--- NOTE | 2025-01-17 12:41 | WPDANESPN ---
Anes - Prog Note Post-Op Date/Time: 01/17/25 12:41 Vital Signs: Last Vital Signs Temp 97 F L 01/17/25 09:38 Pulse 50 L 01/17/25 09:38 Resp 20 01/17/25 09:38 BP 116/98 H 01/17/25 09:38 Pulse Ox 99 01/17/25 09:38 O2 Del Method Room Air 01/17/25 09:38 Pain Score (VAS): no Patient Feedback: Patient satisfied with anesthetic care.
--- NOTE | 2025-01-17 13:33 | SUR.PHASEI ---
PT AWAKE AND ALERT. CUSSING A LOT. C/O PAIN TO RT FOREARM ONLY. PT STATES HE DOES NOT WANT FENTANYL
[2025-01-17] MEDS: oxyCODONE HCL (*CRX) 5 MG TAB IR PO (13:46)
--- NOTE | 2025-01-17 14:06 | SUR.PHASEII ---
PT STILL C/O PAIN AT 01/25 TO RT FOREARM. RT FOREARM AREA IS P/W/D, AREA IS SOFT. DRESSING IS D/I. NOT TIGHT. 4 FINGERS FIT EASILY IN ANUP WRAP/SPLINT. CALLED DR MOODY. PT MAY UNWRAP ANUP WRAP AND REWRAP LOOSELY. PT TO KEEP RT ARM ELEVATED AND USE AN ICE PACK FOR COMFORT. NOTIFIED SUMAN QUINTERO RN, PT'S CURRENT POST OP RN
--- NOTE | 2025-01-17 14:21 | SUR.PHASEII ---
This RN called Dr. Brothers to notify her that pt continued to be bradycardic in OP recovery with HR in 40's and sometimes high 30's. Dr. 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
== END 2025-01-17 14:32 | disposition home or self-care (01) ==
LOC: ASC 09:18
PROVIDERS: PCP Nurse Practitioner Family; Visit Provider Plastic Surgery
PROC: (CPT 25447; principal; 2025-01-17 11:15)
PROC: 01N54ZZ Release Median Nerve, Percutaneous Endoscopic Approach (ICD-10-PCS; CPT 29848; 2025-01-17 11:15)
PROC: (CPT 64718; 2025-01-17 11:15)
DX: M18.11 Unilateral primary osteoarthritis of first carpometacarpal joint, right hand (principal); G56.01 Carpal tunnel syndrome, right upper limb; G56.21 Lesion of ulnar nerve, right upper limb
CPT/HCPCS: 25447; 29848; 64718; 99199

== ENCOUNTER 2025-01-18 13:10 | Outpatient (NON) | payer OTHER, SELFPAY ==
--- NOTE | 2025-01-17 | S_PTH ---
PATIENT: Moshe Haq LOC: ANAB #:[id number] AGE/SX: 54/M ROOM: RE01/18/[address]: Maximo Parkinson MD : 1970 BED: DIS: 01/18/2025 SPEC #: [id number] RECD: 01/18/25 11:04 STATUS: [place] REQ #: [id number] JESUS: 01/17/25 00:[address]: Maximo Parkinson DEPT: [facility] Surgical RECD BY: Nayana Washburn ENTERED: 01/18/25 11:04 SP TYPE: Surgical OTHR DR: OZIEL GONZALEZ, SUBASSEMBLER Tissues: A - Bone Procedures: Hematoxylin and Eosin Stain Gross and Microscopic Level 6 Decalcification Comments: @ Originally on account #[id number] Req #[id number]
--- OUTSIDE RECORDS SUMMARY | 2025-01-18 13:13 | XMS_ITS | Encounter Summary ---
Author Organization [facility] Address [address] [place] [address] Care Team Providers Care Newspaper Copy Editor Name Role Phone Unavailable Primary Care Provider Unavailabl e Encounter Details Date Type Department Care Team (Late st Contact Info) Description 07/02/2004 Outpatient Historical [facility] Medicine [address] [place] [phone] Larry Patel, DO [address] [facility] [place] [phone] Social History Tobacco Use Types Packs/Day Years Used Date Smoking Tobacco: Never Assessed Sex and Gender Information Value Date Recorded Sex Assigned at Not on file Legal Sex Male 4:54 AM SEED PACKER Gender Identity Not on file Sexual Orientation Not on file documented as of this encounter Plan of Treatment Not on file documented as of this encounter Visit Diagnoses Not on filedocumented in this encounter
--- OUTSIDE RECORDS SUMMARY | 2025-01-18 13:13 | XMS_ITS | Encounter Summary ---
Author Organization [facility] Address [address] [place] [address] Care Team Providers Care Cane Feeder Name Role Phone Unavailable Primary Care Provider Unavailabl e Encounter Details Date Type Department Care Team (Late st Contact Info) Description 01/29/2004 Outpatient Historical [facility] Medicine [address] [place] [phone] Larry Patel, DO [address] [facility] [place] [phone] Social History Tobacco Use Types Packs/Day Years Used Date Smoking Tobacco: Never Assessed Sex and Gender Information Value Date Recorded Sex Assigned at Not on file Legal Sex Male 4:54 AM MEDICAL TERRITORY MANAGER Gender Identity Not on file Sexual Orientation Not on file documented as of this encounter Plan of Treatment Not on file documented as of this encounter Visit Diagnoses Not on filedocumented in this encounter
--- OUTSIDE RECORDS SUMMARY | 2025-01-18 13:13 | XMS_ITS | Encounter Summary ---
Author Organization [facility] Address [address] [place] [address] Care Team Providers Care Java Application Developer Name Role Phone Unavailable Primary Care Provider Unavailabl e Encounter Details Date Type Department Care Team (Late st Contact Info) Description 04/02/2005 Outpatient Historical [facility] Medicine [address] [place] [phone] Larry Patel, DO [address] [facility] [place] [phone] Social History Tobacco Use Types Packs/Day Years Used Date Smoking Tobacco: Never Assessed Sex and Gender Information Value Date Recorded Sex Assigned at Not on file Legal Sex Male 4:54 AM DENTAL SCHEDULING COORDINATOR Gender Identity Not on file Sexual Orientation Not on file documented as of this encounter Plan of Treatment Not on file documented as of this encounter Visit Diagnoses Not on filedocumented in this encounter
--- OUTSIDE RECORDS SUMMARY | 2025-01-18 13:13 | XMS_ITS | Encounter Summary ---
Author Organization [facility] Address [address] [place] [address] Care Team Providers Care Teacher Private Name Role Phone Unavailable Primary Care Provider Unavailabl e Encounter Details Date Type Department Care Team (Late st Contact Info) Description 10/14/2003 Outpatient Historical [facility] Medicine [address] [place] [address] [place] Social History Tobacco Use Types Packs/Day Years Used Date Smoking Tobacco: Never Assessed Sex and Gender Information Value Date Recorded Sex Assigned at Not on file Legal Sex Male 4:54 AM WELLNESS INSTRUCTOR Gender Identity Not on file Sexual Orientation Not on file documented as of this encounter Plan of Treatment Not on file documented as of this encounter Visit Diagnoses Not on filedocumented in this encounter
--- OUTSIDE RECORDS SUMMARY | 2025-01-18 13:13 | XMS_ITS | Encounter Summary ---
Author Organization [facility] Address [address] [place] [address] Care Team Providers Care Phlebotomist Lab Assistant Name Role Phone Unavailable Primary Care Provider Unavailabl e Encounter Details Date Type Department Care Team (Late st Contact Info) Description 02/27/2004 Outpatient Historical [facility] Medicine [address] [place] [phone] Larry Patel, DO [address] [facility] [place] [phone] Social History Tobacco Use Types Packs/Day Years Used Date Smoking Tobacco: Never Assessed Sex and Gender Information Value Date Recorded Sex Assigned at Not on file Legal Sex Male 4:54 AM CONSUMER AFFAIRS DIRECTOR Gender Identity Not on file Sexual Orientation Not on file documented as of this encounter Plan of Treatment Not on file documented as of this encounter Visit Diagnoses Not on filedocumented in this encounter
--- OUTSIDE RECORDS SUMMARY | 2025-01-18 13:13 | XMS_ITS | Clinical Summary ---
Author Organization [facility] Address [address] [place] [address] Phone Care Team Providers Care Central Station Operator Name Role Phone Sherri Fisher APRN, DECK AND HULL ASSEMBLER Primary Care Provider Social History Tobacco Use Types Packs/Day Years Used Date Smoking Tobacco: Never Assessed Sex and Gender Information Value Date Recorded Sex Assigned at Not on file Legal Sex Male 10:11 AM POT LINER Gender Identity Not on file Sexual Orientation [...] Recently Relevant to Health Maintenance Care Teams Central Station Operator Relationship Specialty Start Date End Date Sherri Fisher, PLASTICS DESIGN ENGINEER, DECK AND HULL ASSEMBLER [address] [place] [address] PCP - General Internal Medicine 05/27/20
--- OUTSIDE RECORDS SUMMARY | 2025-01-18 13:13 | XMS_ITS | Clinical Summary ---
Author Organization [facility] Address [address] [facility] Attn: Epic Prelude ADT [place] [address] Care Team Providers Care Highway Patrol Pilot Name Role Phone Unavailable Primary Care Provider Unavailabl e Social History Tobacco Use Types Packs/Day Years Used Date Smoking Tobacco: Never Assessed Sex and Gender Information Value Date Recorded Sex Assigned at Not on file Legal Sex Male 4:54 AM PPAP COORDINATOR Gender Identity Not on file Sexual [...]
== END 2025-01-18 13:11 | disposition home or self-care (01) ==
LOC: ANHLAB 13:11
PROVIDERS: PCP Nurse Practitioner Family; Visit Provider Plastic Surgery
DX: G56.20 Lesion of ulnar nerve, unspecified upper limb (principal); M18.11 Unilateral primary osteoarthritis of first carpometacarpal joint, right hand
CPT/HCPCS: 88309; 88311

== ENCOUNTER 2025-01-30 13:40 | Outpatient (CLI) | payer OTHER, SELFPAY ==
--- NOTE | ~2025-01-30 | XR_ITS ---
EXAMINATION: XR hand RT min 3V, 01/30/2025 13:45 CDT HISTORY: M18.11 - Unilateral primary osteoarthritis of first carpo... COMPARISON: No comparisons available. Findings: Postsurgical changes of the first and second metacarpal carpal joints with fragmentation. Soft tissues unremarkable. Impression: No acute fracture or malalignment. Reviewed, dictated and finalized at location P. Impression: No acute fracture or malalignment.
--- OUTSIDE RECORDS SUMMARY | 2025-01-30 15:44 | XMS_ITS | Encounter Summary ---
Author Organization [facility] Address [facility] [place] [address] Care Team Providers Care Wheel And Axle Inspector Name Role Phone Sherri Fisher JYOTSNA Primary Care Provider [phone] Encounter Details Date Type Department Care Team (Late st Contact Info) Description 09/01/2023 FitVia Message Enc [facility] [address] [address] Mychart, [facility] Provider APPT Social History Tobacco Use Types Packs/Day Years Used Date Smoking Tobacco: Former Cigarettes 1.5 22 1 984 - 04/18/2005 Passive Smoke Exposure: Past Smokeless Tobacco: Never Comments:no longer smoker//v apes, Provider to [facility] Alcohol Use Standard Drinks/Week Comments Yes 6.7 [...] Sex Assigned at Male 06/06/2024 2:33 PM RETOUCHER PHOTOENGRAVING Legal Sex Male 4:17 PM CDT Gender Identity Male 06/01/2021 4:37 AM RETOUCHER PHOTOENGRAVING Sexual Orientation Straight 06/01/2021 4: 37 AM RETOUCHER PHOTOENGRAVING documented as of this encounter Plan of Treatment Upcoming Encounters Date Type Department Care Team (Late st Contact Info) Description 02/14/2025 12:45 PM CDT Office Visit [facility] [address] [facility] [place] [address] [place] [address] Nguyen Goncalves MD Three [facility] [address] [place] [address] 04/05/2025 9:00 AM RETOUCHER PHOTOENGRAVING Office Visit [facility] - [place] [address] [place], [place] [address] Raul Torres MD [address] [place] [address] documented as of this encounter Visit Diagnoses Not on filedocumented in this encounter Additional Health Concerns Assessment Noted Time PHQ-9 Depression Total Score: 5 07/12/19 24 12:13 PM CDT documented as of this encounter Care Teams Wheel And Axle Inspector Relationship Specialty Start Date End Date Sherri Fisher FNP [address] [place] [address] PCP - General Nurse Practitioner Family 12/20/18 documented as of this encounter
--- OUTSIDE RECORDS SUMMARY | 2025-01-30 15:44 | XMS_ITS | Encounter Summary ---
Author Organization [facility] Address [facility] [place] [address] Care Team Providers Care Paintings Conservator Name Role Phone Sherri Fisher JYOTSNA Primary Care Provider [phone] Encounter Details Date Type Department Care Team (Late st Contact Info) Description 08/09/2023 TRANSCORP Message Enc [facility] [place] [address] [place] [address] Branden Salgado MD [address] [place] [address] Appointment for joint replacement Social History Tobacco Use Types Packs/Day Years Used Date Smoking Tobacco: Former Cigarettes 1.5 22 1 984 - 04/18/2005 Passive Smoke Exposure: Past Smokeless Tobacco: Never Comments:no longer smoker//v apes, Provider to [facility] [place] Alcohol Use Standard Drinks/Week Comments Yes 6.7 [...] Sex Assigned at Male 06/06/2024 2:33 PM OYSTER SHUCKER Legal Sex Male 4:17 PM CDT Gender Identity Male 06/01/2021 4:37 AM OYSTER SHUCKER Sexual Orientation Straight 06/01/2021 4: 37 AM OYSTER SHUCKER documented as of this encounter Progress Notes [...] Description 02/14/2025 12:45 PM CDT Office Visit [facility] [address] [facility], [place] [address] [place] [address] Nguyen Goncalves MD Three [facility] [address] [place] [address] 04/05/2025 9:00 AM OYSTER SHUCKER Office Visit [facility] [place] [address] [place] [address] Raul Torres MD [address] [place] [address] documented as of this encounter Visit Diagnoses Not on filedocumented in this encounter Additional Health Concerns Assessment Noted Time PHQ-9 Depression Total Score: 5 07/12/19 24 12:13 PM CDT documented as of this encounter Care Teams Paintings Conservator Relationship Specialty Start Date End Date Sherri Fisher FNP [address] [place] [address] PCP - General Nurse Practitioner Family 12/20/18 documented as of this encounter
--- OUTSIDE RECORDS SUMMARY | 2025-01-30 15:44 | XMS_ITS | Encounter Summary ---
Author Organization [facility] Address [facility] [place] [address] Care Team Providers Care Software Quality Automation Engineer Name Role Phone Sherri Fisher JYOTSNA Primary Care Provider [phone] Encounter Details Date Type Department Care Team (Latest Contact Info) Description 01/15/2025 [employer] Message Enc [facility] THREE [facility], [place] [address] [place], [place] [id number] Nguyen Goncalves MD Three [facility] [address] [place] [address] EKG /low heart rate upcoming arthroplasty Social History Tobacco Use Types Packs/Day Years Used Date Smoking Tobacco: Former Cigarettes 1.5 22 1 984 - 04/18/2005 Passive Smoke Exposure: Past Smokeless Tobacco: Never Comments:no longer smoker//v apdon, Provider to [facility] Alcohol Use Standard Drinks/Week Comments Yes 7.7 [...] Sex Assigned at Male 06/06/2024 2:33 PM ENTRY ANALYST Legal Sex Male 4:17 PM CDT Gender Identity Male 06/01/2021 4:37 AM ENTRY ANALYST Sexual Orientation Straight 06/01/2021 4: 37 AM ENTRY ANALYST documented as of this encounter Functional Status [...] Description 02/14/2025 12:45 PM CDT Office Visit [facility] THREE [facility], [place] [place] [address] Nguyen Goncalves MD Three [facility] [address] [place] [address] 04/05/2025 9:00 AM ENTRY ANALYST Office Visit [facility] - [place] [address] [place] [address] Raul Torres MD [address] [place] [address] documented as of this encounter Goals Goal Patient Goal Type Associated Problems Recent Progress Patient-Stated? Author Family - family caregiver with be involved in care transitions and discharge planning Lifestyle No Wiley Spann, RN documented as of this encounter Visit Diagnoses Not on filedocumented in this encounter Additional Health Concerns Assessment Noted Time PHQ-9 Depression Total Score: 5 07/12/19 24 12:13 PM CDT documented as of this encounter Care Teams Software Quality Automation Engineer Relationship Specialty Start Date End Date Sherri Fisher FNP [address] [place] [address] PCP - General Nurse Practitioner Family 12/20/18 documented as of this encounter
--- OUTSIDE RECORDS SUMMARY | 2025-01-30 15:44 | XMS_ITS | Encounter Summary ---
Author Organization [facility] Address [facility] [place] [address] Care Team Providers Care Casing Fluid Tender Name Role Phone Sherri Fisher JYOTSNA Primary Care Provider [phone] Encounter Details Date Type Department Care Team (Late st Contact Info) Description 09/07/2024 Bit9t Message Enc [facility] - [place] [address] [place] [address] Raul Torres MD [address] [place] [address] Upcoming appt Social History Tobacco Use Types Packs/Day Years Used Date Smoking Tobacco: Former Cigarettes 1.5 22 1 984 - 04/18/2005 Passive Smoke Exposure: Past Smokeless Tobacco: Never Comments:no longer smoker//v apes, Provider to [facility] [place] Alcohol Use Standard Drinks/Week Comments Yes 6.7 [...] Sex Assigned at Male 06/06/2024 2:33 PM SPRAY GUN OPERATOR Legal Sex Male 4:17 PM CDT Gender Identity Male 06/01/2021 4:37 AM SPRAY GUN OPERATOR Sexual Orientation Straight 06/01/2021 4: 37 AM SPRAY GUN OPERATOR documented as of this encounter Functional [...] 02/14/2025 12:45 PM CDT Office Visit [facility] THREE [facility], [place] [address] [place] [address] Nguyen Goncalves MD Three [facility] [address] [place], [place] [address] 04/05/2025 9:00 AM SPRAY GUN OPERATOR Office Visit [facility] - [place] [address] [place], [place] [address] Raul Torres MD [address] [place] [address] documented as of this encounter Goals Goal [...] documented as of this encounter Care Teams Casing Fluid Tender Relationship Specialty Start Date End Date Sherri Fisher FNP [address] [place] [address] PCP - General Nurse Practitioner Family 12/20/18 documented as of this encounter
--- OUTSIDE RECORDS SUMMARY | 2025-01-30 15:44 | XMS_ITS | Encounter Summary ---
Author Organization [facility] Address [address] [place] [address] Care Team Providers Care Guest Service Agent Name Role Phone Unavailable Primary Care Provider Unavailabl e Encounter Details Date Type Department Care Team (Late st Contact Info) Description 10/14/2003 Outpatient Historical [facility] Medicine [address] [place] [address] [place] Social History Tobacco Use Types Packs/Day Years Used Date Smoking Tobacco: Never Assessed Sex and Gender Information Value Date Recorded Sex Assigned at Not on file Legal Sex Male 4:54 AM EYEGLASS FITTER Gender Identity Not on file Sexual Orientation Not on file documented as of this encounter Plan of Treatment Not on file documented as of this encounter Visit Diagnoses Not on filedocumented in this encounter
--- OUTSIDE RECORDS SUMMARY | 2025-01-30 15:44 | XMS_ITS | Clinical Summary ---
Author Organization [facility] Address [address] [facility] Attn: Epic Prelude ADT [place] [address] Care Team Providers Care Gallery Assistant Name Role Phone Unavailable Primary Care Provider Unavailabl e Social History Tobacco Use Types Packs/Day Years Used Date Smoking Tobacco: Never Assessed Sex and Gender Information Value Date Recorded Sex Assigned at Not on file Legal Sex Male 4:54 AM COUNTER TOP ASSEMBLER Gender Identity Not on file Sexual Orientation [...]
--- OUTSIDE RECORDS SUMMARY | 2025-01-30 15:44 | XMS_ITS | Encounter Summary ---
Author Organization [facility] Address [facility] [place] [address] Care Team Providers Care Timber Management Assistant Name Role Phone Sherri Fisher Primary Care Provider [phone] Encounter Details Date Type Department Care Team (Late st Contact Info) Description 12/03/2024 PhoneGuardt Message Enc [facility] Medical Group Family & Internal Medicine [facility] [address] [place] [address] Sherri Fisher FNP [address] [place], [place] [id number] Tetanus shot Social History Tobacco Use Types Packs/Day Years Used Date Smoking Tobacco: Former Cigarettes 1.5 22 1 984 - 04/18/2005 Passive Smoke Exposure: Past Smokeless Tobacco: Never Comments:no longer smoker//v apes, Provider to [facility] Alcohol Use Standard Drinks/Week Comments Yes 7.7 [...] Assigned at Male 06/06/2024 2:33 PM SHEET COMBINING OPERATOR Legal Sex Male 4:17 PM CDT Gender Identity Male 06/01/2021 4:37 AM SHEET COMBINING OPERATOR Sexual Orientation Straight 06/01/2021 4: 37 AM SHEET COMBINING OPERATOR documented as of this encounter Functional [...] 02/14/2025 12:45 PM CDT Office Visit [facility] [facility], [address] [place] [address] Nguyen Goncalves MD Three [facility] [address] [place] [address] 04/05/2025 9:00 AM SHEET COMBINING OPERATOR Office Visit [facility] Medical [facility] - [place] [address] [place] [address] Raul Torres MD [address] [place] [address] documented as of this encounter Goals Goal [...] documented as of this encounter Care Teams Timber Management Assistant Relationship Specialty Start Date End Date Sherri Fisher FNP [address] [place] [address] PCP - General Nurse Practitioner Family 12/20/18 documented as of this encounter
--- OUTSIDE RECORDS SUMMARY | 2025-01-30 15:44 | XMS_ITS | Encounter Summary ---
Author Organization [facility] Address [address] [place] [address] Care Team Providers Care Wood Gluer Name Role Phone Unavailable Primary Care Provider Unavailabl e Encounter Details Date Type Department Care Team (Late st Contact Info) Description 01/29/2004 Outpatient Historical [facility] Medicine [address] [place] [phone] Larry Patel, DO [address] [facility] [place] [phone] Social History Tobacco Use Types Packs/Day Years Used Date Smoking Tobacco: Never Assessed Sex and Gender Information Value Date Recorded Sex Assigned at Not on file Legal Sex Male 4:54 AM BILINGUAL MEDICAL ASSISTANT Gender Identity Not on file Sexual Orientation Not on file documented as of this encounter Plan of Treatment Not on file documented as of this encounter Visit Diagnoses Not on filedocumented in this encounter
--- OUTSIDE RECORDS SUMMARY | 2025-01-30 15:44 | XMS_ITS | Encounter Summary ---
Author Organization [facility] Address [facility] [place] [address] Care Team Providers Care Barrer And Tacker Name Role Phone Sherri Fisher JYOTSNA Primary Care Provider [phone] Encounter Details Date Type Department Care Team (Late st Contact Info) Description 11/21/2023 CorkCRMt Message Enc [facility] Medical [facility] Sports [facility] - [place] [address] [place], [place] [address] [phone] Branden Salgado MD [address] [place] [address] November 22 appt Social History Tobacco Use [...] Sex Assigned at Male 06/06/2024 2:33 PM OFFICE MANAGER EXECUTIVE ASSISTANT Legal Sex Male 4:17 PM CDT Gender Identity Male 06/01/2021 4:37 AM OFFICE MANAGER EXECUTIVE ASSISTANT Sexual Orientation Straight 06/01/2021 4: 37 AM OFFICE MANAGER EXECUTIVE ASSISTANT documented as of this encounter Functional Status [...] 02/14/2025 12:45 PM CDT Office Visit [facility] THREE [facility], [place] [address] [place] [address] Nguyen Goncalves MD Three [facility] [address] [place], [place] [address] 04/05/2025 9:00 AM OFFICE MANAGER EXECUTIVE ASSISTANT Office Visit [facility] - [place] [address] [place], [place] [phone] Raul Torres MD [address] [place], [place] [address] documented as of this encounter Goals Goal [...] documented as of this encounter Care Teams Barrer And Tacker Relationship Specialty Start Date End Date Sherri Fisher FNP [address] [place] [address] PCP - General Nurse Practitioner Family 12/20/18 documented as of this encounter
--- OUTSIDE RECORDS SUMMARY | 2025-01-30 15:44 | XMS_ITS | Encounter Summary ---
Author Organization [facility] Address [facility] [place] [address] Care Team Providers Care Grounds Worker Name Role Phone Sherri Fisher Primary Care Provider [phone] Encounter Details Date Type Department Care Team (Late st Contact Info) Description 06/09/2022 [employer] Message Enc [facility] Medical Group Family & Internal Medicine [facility] [address] [place] [address] Sherri Fisher FNP [address] [place], [place] [phone] Arthritis meds Social History Tobacco Use Types [...] at Male 06/06/2024 2:33 PM PRODUCT DEVELOPMENT ACTUARY Legal Sex Male 4:17 PM CDT Gender Identity Male 06/01/2021 4:37 AM PRODUCT DEVELOPMENT ACTUARY Sexual Orientation Straight 06/01/2021 4: 37 AM PRODUCT DEVELOPMENT ACTUARY documented as of this encounter Plan of Treatment Upcoming Encounters Date Type Department Care Team (Late st Contact Info) Description 02/14/2025 12:45 PM CDT Office Visit [facility] [facility] [place] [address] [place] [address] Nguyen Goncalves MD Three [facility] [address] [place] [address] 04/05/2025 9:00 AM PRODUCT DEVELOPMENT ACTUARY Office Visit [facility] Medical [facility] - [place] [address] [place] [address] Raul Torres MD [address] [place] [address] documented as of this encounter Visit Diagnoses Not on filedocumented in this encounter Additional Health Concerns Infection Onset Date Last Indicated Resolved Time COVID-19 Rule Out 04/20/2023 04/20/2023 04/20/2023 2:48 PM PRODUCT DEVELOPMENT ACTUARY Influenza - Seasonal 04/20/2023 04/20/2023 024 12:32 AM PRODUCT DEVELOPMENT ACTUARY Assessment Noted Time PHQ-9 Depression Total Score: 2 10/03/19 21 11:46 AM CDT documented as of this encounter Care Teams Grounds Worker Relationship Specialty Start Date End Date Sherri Fisher FNP [address] [place] [address] PCP - General Nurse Practitioner Family 12/20/18 documented as of this encounter
--- OUTSIDE RECORDS SUMMARY | 2025-01-30 15:44 | XMS_ITS | Encounter Summary ---
Author Organization [facility] Address [address] [place] [address] Care Team Providers Care Truck Striker Name Role Phone Unavailable Primary Care Provider Unavailabl e Encounter Details Date Type Department Care Team (Late st Contact Info) Description 11/30/2004 Outpatient Historical [facility] Medicine [address] [place] [phone] Larry Ptael, DO [address] [facility] [place] [phone] Social History Tobacco Use Types Packs/Day Years Used Date Smoking Tobacco: Never Assessed Sex and Gender Information Value Date Recorded Sex Assigned at Not on file Legal Sex Male 4:54 AM CHUTE TAPPER Gender Identity Not on file Sexual Orientation Not on file documented as of this encounter Plan of Treatment Not on file documented as of this encounter Visit Diagnoses Not on filedocumented in this encounter
--- OUTSIDE RECORDS SUMMARY | 2025-01-30 15:44 | XMS_ITS | Clinical Summary ---
Author Organization [facility] Address [address], [facility] [address] [place] [address] Phone Care Team Providers Care Pump Mechanic Name Role Phone Sherri Fisher APRN, MACHINE TENDER Primary Care Provider Social History Tobacco Use Types Packs/Day Years Used Date Smoking Tobacco: Never Assessed Sex and Gender Information Value Date Recorded Sex Assigned at Not on file Legal Sex Male 10:11 AM BENDER MACHINE Gender Identity Not on file Sexual Orientation [...] Recently Relevant to Health Maintenance Care Teams Pump Mechanic Relationship Specialty Start Date End Date Sherri Fisher, FRUIT II FARMWORKER, MACHINE TENDER [address] [place] [address] PCP - General Internal Medicine 05/27/20
--- OUTSIDE RECORDS SUMMARY | 2025-01-30 15:44 | XMS_ITS | Encounter Summary ---
Author Organization [facility] Address [facility] [place] [address] Care Team Providers Care Slab Conditioner Supervisor Name Role Phone Sherri Fisher JYOTSNA Primary Care Provider [phone] Encounter Details Date Type Department Care Team (Late st Contact Info) Description 09/19/2023 Airtime Message Enc [facility] Medical Group Orthopedic & Sports Medicine - [place] [address] [place] [address] Raul Torres MD [address] [place] [address] Appointment on Social History Tobacco Use Types Packs/Day Years Used Date Smoking Tobacco: Former Cigarettes 1.5 22 1 984 - 04/18/2005 Passive Smoke Exposure: Past Smokeless Tobacco: Never Comments:no longer smoker//v apdon, Provider to [place] Alcohol Use Standard Drinks/Week Comments Yes 6.7 [...] Sex Assigned at Male 06/06/2024 2:33 PM MOLDER TRIMMER Legal Sex Male 4:17 PM CDT Gender Identity Male 06/01/2021 4:37 AM MOLDER TRIMMER Sexual Orientation Straight 06/01/2021 4: 37 AM MOLDER TRIMMER documented as of this encounter Plan of Treatment Upcoming Encounters Date Type Department Care Team (Late st Contact Info) Description 02/14/2025 12:45 PM CDT Office Visit [facility] [facility] [facility] [address] [place] [address] Nguyen Goncalves MD Three [facility] [address] [place] [address] 04/05/2025 9:00 AM MOLDER TRIMMER Office Visit [facility] Medical Group Orthopedic & Sports Medicine - [place] [address] [place] [address] Raul Torres MD [address] [place] [address] documented as of this encounter Visit Diagnoses Not on filedocumented in this encounter Additional Health Concerns Assessment Noted Time PHQ-9 Depression Total Score: 5 07/12/19 24 12:13 PM CDT documented as of this encounter Care Teams Slab Conditioner Supervisor Relationship Specialty Start Date End Date Sherri Fisher FNP [address] [place] [address] PCP - General Nurse Practitioner Family 12/20/18 documented as of this encounter
--- OUTSIDE RECORDS SUMMARY | 2025-01-30 15:44 | XMS_ITS | Encounter Summary ---
Author Organization [facility] Address [address] [place] [address] Care Team Providers Care Sap Analyst Name Role Phone Unavailable Primary Care Provider Unavailabl e Encounter Details Date Type Department Care Team (Late st Contact Info) Description 07/02/2004 Outpatient Historical [facility] Medicine [address] [place] [phone] Larry Patel, DO [address] [facility] [place] [phone] Social History Tobacco Use Types Packs/Day Years Used Date Smoking Tobacco: Never Assessed Sex and Gender Information Value Date Recorded Sex Assigned at Not on file Legal Sex Male 4:54 AM TANKERMAN Gender Identity Not on file Sexual Orientation Not on file documented as of this encounter Plan of Treatment Not on file documented as of this encounter Visit Diagnoses Not on filedocumented in this encounter
--- OUTSIDE RECORDS SUMMARY | 2025-01-30 15:44 | XMS_ITS | Encounter Summary ---
Author Organization [facility] Address [facility] [place] [address] Care Team Providers Care Industrial Design Intern Name Role Phone Sherri Fisher JYOTSNA Primary Care Provider [phone] Encounter Details Date Type Department Care Team (Late st Contact Info) Description 08/27/2024 Xagenic Message Enc [facility] Orthopedic [facility] Medicine - [place] [address] [place], [place] [phone] Branden Salgado MD [address] [place] [address] Upcoming hand Surgery Social History Tobacco Use Types Packs/Day Years Used Date Smoking Tobacco: Former Cigarettes 1.5 22 1 984 - 04/18/2005 Passive Smoke Exposure: Past Smokeless Tobacco: Never Comments:no longer smoker//v apes, Provider to [place] Alcohol Use Standard Drinks/Week Comments Yes 6.7 [...] Sex Assigned at Male 06/06/2024 2:33 PM MERCHANDISE MARKER Legal Sex Male 4:17 PM CDT Gender Identity Male 06/01/2021 4:37 AM MERCHANDISE MARKER Sexual Orientation Straight 06/01/2021 4: 37 AM MERCHANDISE MARKER documented as of this encounter Functional Status [...] 02/14/2025 12:45 PM CDT Office Visit [facility] [facility], [address] [place] [address] Nguyen Goncalves MD Three [facility] [address] [place], [place] [address] 04/05/2025 9:00 AM MERCHANDISE MARKER Office Visit [facility] - [place] [address] [place], [place] [phone] Raul Torres MD [address] [place], [place] [address] documented as of this encounter Goals Goal [...] documented as of this encounter Care Teams Industrial Design Intern Relationship Specialty Start Date End Date Sherri Fisher FNP [address] [place] [address] PCP - General Nurse Practitioner Family 12/20/18 documented as of this encounter
--- OUTSIDE RECORDS SUMMARY | 2025-01-30 15:44 | XMS_ITS | Encounter Summary ---
Author Organization [facility] Address [address] [place] [address] Care Team Providers Care Lumber Tripper Name Role Phone Unavailable Primary Care Provider Unavailabl e Encounter Details Date Type Department Care Team (Late st Contact Info) Description 04/02/2005 Outpatient Historical [facility] Medicine [address] [place] [phone] Larry Patel, DO [address] [facility] [place] [phone] Social History Tobacco Use Types Packs/Day Years Used Date Smoking Tobacco: Never Assessed Sex and Gender Information Value Date Recorded Sex Assigned at Not on file Legal Sex Male 4:54 AM YARD COORDINATOR Gender Identity Not on file Sexual Orientation Not on file documented as of this encounter Plan of Treatment Not on file documented as of this encounter Visit Diagnoses Not on filedocumented in this encounter
--- OUTSIDE RECORDS SUMMARY | 2025-01-30 15:44 | XMS_ITS | Encounter Summary ---
Author Organization [facility] Address [facility] [place] [address] Care Team Providers Care Ambulatory Services Representative Name Role Phone Sherri Fisher JYOTSNA Primary Care Provider [phone] Encounter Details Date Type Department Care Team (Late st Contact Info) Description 11/14/2024 Biocycle Message Enc [facility] Medical Group Orthopedic & [facility] - [place] [address] [place] [address] Raul Torres MD [address] [place] [address] Knee/ankle issues Social History Tobacco Use Types Packs/Day Years Used Date Smoking Tobacco: Former Cigarettes 1.5 22 1 984 - 04/18/2005 Passive Smoke Exposure: Past Smokeless Tobacco: Never Comments:no longer smoker//v apes, Provider to [place] Alcohol Use Standard Drinks/Week Comments Yes 6.7 [...] Sex Assigned at Male 06/06/2024 2:33 PM TAPEMAN Legal Sex Male 4:17 PM CDT Gender Identity Male 06/01/2021 4:37 AM TAPEMAN Sexual Orientation Straight 06/01/2021 4: 37 AM TAPEMAN documented as of this encounter Functional Status [...] 02/14/2025 12:45 PM CDT Office Visit [facility] [facility], [address] [place] [address] Nguyen Goncalves MD Three [facility] [address] [place], [place] [address] 04/05/2025 9:00 AM TAPEMAN Office Visit [facility] Medical [facility] - [place] [address] [place], [place] [address] Raul Torres MD [address] [place] [address] documented as of this encounter Goals Goal [...] documented as of this encounter Care Teams Ambulatory Services Representative Relationship Specialty Start Date End Date Sherri Fisher FNP [address] [place] [address] PCP - General Nurse Practitioner Family 12/20/18 documented as of this encounter
--- OUTSIDE RECORDS SUMMARY | 2025-01-30 15:44 | XMS_ITS | Encounter Summary ---
Author Organization [facility] Address [facility] [place] [address] Care Team Providers Care Manager College Name Role Phone Sherri Fisher JYOTSNA Primary Care Provider [phone] Encounter Details Date Type Department Care Team (Late st Contact Info) Description 10/03/2024 Loud Mountaint Message Enc [facility] Medical Group Orthopedic & Sports Medicine - [place] [address] [place] [address] Raul Torres MD [address] [place] [address] Knee issues Social History Tobacco Use Types Packs/Day Years Used Date Smoking Tobacco: Former Cigarettes 1.5 22 1 984 - 04/18/2005 Passive Smoke Exposure: Past Smokeless Tobacco: Never Comments:no longer smoker//v apes, Provider to [place] Alcohol Use Standard Drinks/Week Comments Yes 6.7 [...] Sex Assigned at Male 06/06/2024 2:33 PM LAB ANALYST Legal Sex Male 4:17 PM CDT Gender Identity Male 06/01/2021 4:37 AM LAB ANALYST Sexual Orientation Straight 06/01/2021 4: 37 AM LAB ANALYST documented as of this encounter Functional [...] 02/14/2025 12:45 PM CDT Office Visit [facility] [facility], [address] [place] [address] Nguyen Goncalves MD Three [facility] [address] [place] [address] 04/05/2025 9:00 AM LAB ANALYST Office Visit [facility] Medical Group Orthopedic [facility] Medicine - [place] [address] [place] [address] Raul Torres MD [address] [place] [address] documented as of this encounter Goals Goal [...] documented as of this encounter Care Teams Manager College Relationship Specialty Start Date End Date Sherri Fisher FNP [address] [place] [address] PCP - General Nurse Practitioner Family 12/20/18 documented as of this encounter
--- OUTSIDE RECORDS SUMMARY | 2025-01-30 15:44 | XMS_ITS | Encounter Summary ---
Author Organization [facility] Address [address] [place] [address] Care Team Providers Care Sap Bobj Developer Name Role Phone Unavailable Primary Care Provider Unavailabl e Encounter Details Date Type Department Care Team (Late st Contact Info) Description 02/27/2004 Outpatient Historical [facility] Medicine [address] [place] [phone] Larry Patel, DO [address] [facility] [place] [phone] Social History Tobacco Use Types Packs/Day Years Used Date Smoking Tobacco: Never Assessed Sex and Gender Information Value Date Recorded Sex Assigned at Not on file 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
--- OUTSIDE RECORDS SUMMARY | 2025-01-30 15:44 | XMS_ITS | Encounter Summary ---
Author Organization [facility] Address [facility] [place] [address] Care Team Providers Care Agricultural Services Director Name Role Phone Sherri Fisher JYOTSNA Primary Care Provider [phone] Encounter Details Date Type Department Care Team (Late st Contact Info) Description 07/09/2023 KOEZYt Message Enc [facility] Medical Group Orthopedic & Sports Medicine - [place] [address] [place] [address] Raul Torres MD [address] [place] [address] Left leg pain Social History Tobacco Use [...] Sex Assigned at Male 06/06/2024 2:33 PM DEVELOPMENT ARCHITECT Legal Sex Male 4:17 PM CDT Gender Identity Male 06/01/2021 4:37 AM DEVELOPMENT ARCHITECT Sexual Orientation Straight 06/01/2021 4: 37 AM DEVELOPMENT ARCHITECT documented as of this encounter Functional Status * Over the past 2 weeks, how often have you been bothered by any of the following problems? Question Answer Date of Assessment Author Status Little interest or pleasure in doing things Several days 07/12/2023 12:13 PM CDT Sherri Fisher, MARBLE INSTALLATION HELPER Acti ve Feeling down, depressed, or hopeless Not at all 07/12/2023 12:13 PM CDT Sherri Fisher, F RESPIRATORY TECHNICIAN Active Patient Health Questionnaire-2 Score 1 07/12/2023 12:13 PM CDT Sherri Fisher FN P Active * Question Answer Date of Assessment Author Status Trouble falling or staying asleep, or sleeping too much Several days 07/12/2023 12:13 PM CDT Sherri Fisher, MARBLE INSTALLATION HELPER Active Feeling tired or having little energy Several days 07/12/2023 12:13 PM CDT Eliud Fisheranda, MARBLE INSTALLATION HELPER Active Poor appetite or overeating Not at all 07/12/2023 12:13 PM CDT Sherri Fisher, MARBLE INSTALLATION HELPER Active Feeling bad about yourself - or that you are a failure or have let yourself or your family down Several days 07/12/2023 12:13 PM CDT Eliud Fisheranda, MARBLE INSTALLATION HELPER Active Trouble concentrating on things, such as reading the newspaper or watching television Several days 07/12/2023 12:13 PM CDT Eliud Fisheranda, MARBLE INSTALLATION HELPER Active Moving or speaking so slowly that other people could have noticed? Or the opposite - being so fidgety or restless that you have been moving around a lot more than usual. Not at all 07/12/2023 12:13 PM CDT Sherri Fisher, MARBLE INSTALLATION HELPER Active Thoughts that you would be better off or hurting yourself in some way Not at all 07/12/2023 12:13 PM CDT Sherri Fisher, MARBLE INSTALLATION HELPER Active Patient Health Questionnaire-9 Score 5 07/12/2023 12:13 PM CDT Sherri Fisher, MARBLE INSTALLATION HELPER Active * If you checked off any [...] Description 02/14/2025 12:45 PM CDT Office Visit [facility] [facility] [address] [place] [address] Nguyen Goncalves MD Three [facility] [address] [place] [address] 04/05/2025 9:00 AM DEVELOPMENT ARCHITECT Office Visit [facility] Medical [facility] - [place] [address] [place], [place] [phone] Raul Torres MD [address] [place], [place] [phone] documented as of this encounter Visit Diagnoses Not on filedocumented in this encounter Additional Health Concerns Assessment Noted Time PHQ-9 Depression Total Score: 2 10/03/19 21 11:46 AM CDT documented as of this encounter Care Teams Agricultural Services Director Relationship Specialty Start Date End Date Sherri Fisher FNP [address] [place] [address] PCP - General Nurse Practitioner Family 12/20/18 documented as of this encounter
--- OUTSIDE RECORDS SUMMARY | 2025-01-30 15:44 | XMS_ITS | Clinical Summary ---
Author Organization [facility] Address [address] [place] [address] Care Team Providers Care Fine Artist Name Role Phone Sherri Fisehr JYOTSNA Primary Care Provider [phone] Allergies No known active allergies Medications lansoprazole 15 MG capsuleIndication s:Heartburn Take 1 capsule (15 mg total) by mouth nightly. Indications: Heartburn Active psyllium 51.7 % packetIndications :Constipation Take 1 packet by mouth 3 (three) times daily as needed (constipation). Indications: Constipation Active magnesium oxide (MAG-OX) 250 MG tabletIndications :Magnesium Deficiency Take 1 tablet (250 mg total) by mouth daily. Indications: Magnesium Deficiency Active buPROPion SR (WELLBUTRIN SR) 150 MG 12 hr tabletIndications :Depression Indications: Depression TAKE 1 TABLET TWICE A DAY 180 tablet 3 025 Active triamcinolone acetonide (NASACORT) 55 MCG/ACT nasal inhaler 025 Active diclofenac potassium (CATAFLAM) 50 MG tabletIndications :Arthralgia of both hands,Primary osteoarthritis of both knees Take 1 tablet (50 mg total) by mouth 3 (three) times daily. Short supply while waiting on mailorder 270 tablet 3 025 Active losartan (COZAAR) 50 MG tablet TAKE 1 TABLET DAILY 90 tablet 1 025 Active traMADol (ULTRAM) 50 MG tablet Take 1 tablet (50 mg total) by mouth every 6 (six) hours as needed. 025 Active amoxicillin (AMOXIL) 500 MG tablet Take 1 tablet (500 mg total) by mouth. 025 Active predniSONE (DELTASONE) 10 mg tabletIndications :Arthralgia of both hands 4 tabs x 3d, 3 tabs x3d, 2 tabs x3d, 1 tab x3d 30 tablet 025 Active baclofen (LIORESAL) 10 MG tabletIndications :Left sided sciatica TAKE 2 TABLETS(20 MG) BY MOUTH TWICE DAILY FOR MUSCLE SPASM 270 tablet 025 Active baclofen (LIORESAL) 10 MG tabletIndications :Muscle Spasm Take 2 tablets (20 mg total) by mouth 2 (two) times daily. Indications: Muscle Spasm 270 tablet 024 2024 Discontinued Active Problems Problem Noted Date Diagnosed Date [...] Encounters Date Type Department Care Team Description 01/17/2025 Scan HEALTH INFO SRVCS Scanned, Doc Med Group Procedure (SCAN); Image (SCAN) 01/17/2025 Telephone [facility], [address] [address] Nguyen Goncalves MD Concerns 01/15/2025 Telephone [facility], [address] [address] Nguyen Goncalves MD Surgical Clearance 01/15/2025 MyChart Message Enc [facility], [address] [address] Nguyen Goncalves MD EKG /low heart rate upcoming arthroplasty 01/14/2025 MyChart Message Enc [facility] Medical Group Family & Internal Medicine [address] [address] Sherri Fisher FNP EKG before surgery 01/08/2025 Scan [facility], [address] [address] Scanned, Doc Pccl 12/18/2024 Scan HEALTH INFO SRVCS Scanned, Doc Med Group EMG (SCAN) 12/03/2024 MyChart Message Enc [facility] & Internal [address] [address] Sherri Fisher, JYOTSNA Tetanus shot 11/30/2024 10:00 AM CDT Office Visit [facility] [address] [place] [address] Raul Torres MD Follow Up (Bilateral ankle ) 11/30/2024 Travel 11/28/2024 Orders Only [facility] [address] [place] [address] Raul Torres MD 11/27/2024 10:20 AM CDT Office Visit [facility] Internal [address] [address] Sherri Fisher FNP Hand Pain (Patient presenting to the office today c/o B/L hand pain has been going for awhile but recently going into the wrist - throbbing uses ice and Voltaren to help with the pain ) 11/27/2024 Travel 11/16/2024 MyChart Message Enc [facility] Internal [address] [address] Sherri Fisher FNP Sinus infection/ Covid 11/15/2024 Scan HEALTH INFO SRVCS Scanned, Doc Med Group 11/14/2024 MyChart Message Enc [facility] [address] [place] [address] Raul Torres MD Knee/ankle issues from Last [...] Given: Yes Comments:no longer smoker//vapes, Provider to [place] Alcohol Use Standard Drinks/Week Comments Yes 7.7 [...] Sex Assigned at Male 06/06/2024 2:33 PM CONTRACTOR FIELD 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 Legal Sex Male 4:17 PM CDT Gender Identity Male 06/01/2021 4:37 AM CONTRACTOR FIELD HAULING Sexual Orientation Straight 06/01/2021 4: 37 AM CONTRACTOR FIELD HAULING Last Filed Vital Signs Vital Sign Reading [...] Description 02/14/2025 12:45 PM CDT [facility] [facility] [address] [place] [address] [facility] [address] [place], [place] [phone] 04/05/2025 9:00 AM CONTRACTOR FIELD HAULING Office Visit [facility] Medical Group Orthopedic & Sports Medicine - [place] [address] [place], [place] [phone] Raul Torres MD [address] [place] [address] Health Maintenance Due Date Last Done Comments [...] Zoster Vaccines Completed 06/26/2022, 03/26/2022 PHQ-2 (Physician [place]) Completed 09/27/2024 Pneumococcal Vaccine: 50+ Years Completed 11/27/2024 Hepatitis A Vaccines Aged Out No long er eligible based on patient's age to complete this topic Meningococcal B Vaccine Aged Out No l [...] Spann, RN Medical Devices Implanted Type Area Humanities Division Chair Device Identifier Shelf Expiration Date Model / Serial / Lot Attune Tibial Base Affixium Fixed Bearing Implanted:Qty : 1 on 10/13/2023 by Branden Salgado MD at [facility] Knee Components Left: Knee DEPUY SYNTHES [id number] 09/15/2032 1506-21- 010 / / [id number] Attune Femoral Porocoat Cruciate Retaining Implanted:Qty : 1 on 10/13/2023 by Branden Salgado MD at [facility] Knee Components Left: Knee DEPUY SYNTHES [id number] 08/15/2032 1504-01- 109 / / [id number] Attune Tibial Insert Fixed Bearing Medial Stabilized Implanted:Qty : 1 on 10/13/2023 by Branden Salgado MD at [facility] Knee Components Left: Knee DEPUY SYNTHES [id number] 08/15/2030 1518-20- 910 / / [id number] Procedures Procedure Name Priority Date/Time Associated Diagnosis Comments IMAGE GENERIC 01/17/2025 PROCEDURE GENERIC (SCAN ORDER) 01/17/2025 ECG GENERIC (SCAN ORDER) Routine 01/08/2025 EMG [...] HEPATITIS C ANTIBODY Routine 03/30/2021 12:03 PM CONTRACTOR FIELD HAULING Need for hepatitis C screening test COLONOSCOPY GENERIC (SCAN ORDER) 07/07/2020 from Last 3 Months or Most Recently Relevant to Health Maintenance Results * IMAGE GENERIC (01/17/2025) Anatomical Region Laterality Modality Other 01/17/2025 [facility] Scanned SCANNING Final Resu lt * PROCEDURE GENERIC (SCAN ORDER) (01/17/2025) 01/17/2025 [facility] Scanned SCANNING Final Resu lt * ECG (01/08/2025) [facility] Scanned SCANNING Final Result [facility] * EMG GENERIC (SCAN ORDER) (12/18/2024) 12/18/2024 Result [facility] Scanned SCANNING Final Resu lt * OXR [...] 10:47 AM CDT) HGB A1C 5.5 % [facility] 11/27/2024 10:4 7 AM CDT Sherri Almodovargertrude [facility] Final Result Performing Organization Address [facility] Co de Phone Number [facility] [address] [place] [address], * HEPATITIS C ANTIBODY (03/30/2021 12:03 PM CONTRACTOR FIELD HAULING) Pathologist [facility] HEPATITIS C AB NON-REACTI VE NON-REACT STEFFI 03/30/2021 10:02 PM CONTRACTOR FIELD HAULING [facility] Comment: ANTIBODIES TO HCV NOT DETECTED. DOES NOT EXCLUDE THE POSSIBILITY OF EXPOSURE TO HCV. 03/30/2021 12:0 3 PM CONTRACTOR FIELD HAULING [facility] Final Result Performing Organization Address [facility] Co de Phone Number [facility] [address] [place] [address], [phone] * COLONOSCOPY GENERIC (07/07/2020) 07/07/2020 Narrative 07/07/2020 Ordered by an unspecified provider. Documents Scanned SCANNING Final Result from Last 3 Months or Most Recently Relevant to Health Maintenance Insurance [employer] Advance Directives * Full Code (Latest Code Status on File) Date Activated Date Inactivated Comments 10/15/2023 8:52 AM Care Teams Fine Artist Relationship Specialty Start Date End Date Sherri Fisher FNP [address] [place] [address] PCP - General Nurse Practitioner Family 12/20/18
== END 2025-01-30 13:41 | disposition home or self-care (01) ==
PROVIDERS: PCP Nurse Practitioner Family; Visit Provider Physician Assistant Surgical
DX: M18.11 Unilateral primary osteoarthritis of first carpometacarpal joint, right hand (principal)
CPT/HCPCS: 73130